=== PATIENT | female | born 1955 | race Caucasian/White ===

== ENCOUNTER 2017-07-12 20:09 | Inpatient (IN) | payer SELFPAY ==
[2017-07-12 20:57] LABS: PTT 27.4 SEC (22.9-36.1); Prothrombin Time 14.4 SEC (12.0-14.7)
--- NOTE | 2017-07-12 21:00 | RAD ---
CHEST ONE VIEW 07/12/17 HISTORY: Altered mental status. COMPARISON: Chest one view, 05/25/11. FINDINGS: The lungs are clear. No pneumothorax or effusion. The cardiac silhouette and mediastinal contours ar e normal. IMPRESSION: No acute intrathoracic abnormality. POS: [facility]
[2017-07-12 21:04] LABS: Band 9 % (5-11); Mean Platelet Volume 8.4 fL (7.4-10.4); Neutrophil 73 % (42-75); Red Blood Cell (RBC) Count 5.58 mill/uL (4.20-5.40); White Blood Cell (WBC) Count 23.4 thou/uL (4.8-10.8)
[2017-07-12 21:08] LABS: ALT (SGPT) 23 U/L (8-55); AST (SGOT) 41 U/L (5-34); Alkaline Phosphatase 100 U/L (40-150); Anion Gap 34 mmol/L (10-20); BUN (Urea Nitrogen) 38 mg/dL (9.8-20.1); Bilirubin, Total 1.4 mg/dL (0.2-1.2); CK (CPK) 108 U/L (29-168); Calc. Creatinine Clearance 0 mL/min (70-130); Calcium 9.3 mg/dL (7.8-10.44); Carbon Dioxide 12 mmol/L (23-31); Chloride 97 mmol/L (98-107); Estimated GFR-MDRD 19; Globulin 3.9 g/dL (2.4-3.5); Lipase 21 U/L (8-78); Protein, Total 7.9 g/dL (6.0-8.3); Troponin I 0.185 ng/mL (< 0.028)
[2017-07-12] MEDS ORDERED: Piperacillin/Tazobactam 4.5 GM VIAL ONE (21:46)
--- NOTE | 2017-07-12 21:57 | RAD ---
CHEST ONE VIEW 07/12/17 HISTORY: Central line placement. COMPARISON: Chest one view same day. FINDINGS: Central line has been placed with tip at the anterior SVC. No complication. There are extensive nodular annular calcifications. IMPRESSION: Interval placement of central venous catheter without complication. POS: [facility]
[2017-07-12] MEDS ORDERED: Piperacillin/Tazobactam 4.5 GM in Sodium Chloride 0.9% 100 ML IVPB SCH (22:00)
[2017-07-12] MEDS ORDERED: Norepinephrine 8 MG/0.9% NS 250 ML ONE (22:24)
[2017-07-12 22:37] LABS: Oxyhemoglobin 95.3 % (94.0-97.0); Sodium 138 mmol/L (135-148)
[2017-07-12] MEDS ORDERED: Aspirin 325 MG TAB ONE (22:37)
--- NOTE | 2017-07-12 22:43 | PDOC.EVN ---
Event Note - Event Note Event Note: [id number] H&P Dictated 1. Septic shock 2. Hypotenion 3. MARAH 4. Metabolic acidosis 5. Abdominal pain + Acute diarrhea plan: see orders
[2017-07-12 22:46] LABS: Mode Nasal Cannula; Modified Allen's Test POSITIVE; Vent NO
[2017-07-12 22:47] LABS: Bilirubin Large (Negative); Blood, Urine Negative (Negative); Glucose, Urine (Dipstick) 100 mg/dL (Negative); Ketone, Urine 15 mg/dL (Negative); Nitrite Positive (Negative); Protein, Urine (Dipstick) 100 mg/dL (Neg-Trace)
[2017-07-12] MEDS ORDERED: HYDROcodone/Acetaminophen 5/325 mg Tablet PO PRN (22:47)
[2017-07-12] MEDS ORDERED: Acetaminophen 325 MG TAB PO PRN (22:47)
[2017-07-12] MEDS ORDERED: Ondansetron HCl/PF 4 MG/2 ML Vial IVP PRN (22:47)
[2017-07-12 22:49] LABS: RBC/HPF 0-3 HPF (0-3); WBC/HPF 21-50 HPF (0-3)
[2017-07-12] MEDS ORDERED: Enoxaparin Sodium 100 MG/ML SYRINGE ONE ×2 (22:53→22:54)
[2017-07-12 22:59] LABS: Bacteria/HPF 3+ HPF (None Seen)
[2017-07-12 23:00] LABS: Hyaline Casts/LPF NONE SEEN LPF (0-3 Hyaline)
[2017-07-12] MEDS ORDERED: Norepinephrine 8 MG/0.9% NS 250 ML IVPB SCH (23:00)
[2017-07-12] MEDS ORDERED: Enoxaparin Sodium 60 MG/0.6 ML SYRINGE ONE (23:05)
--- NOTE | 2017-07-12 23:39 | CT ---
CT ABDOMEN AND PELVIS WITHOUT CONTRAST 07/12/17 HISTORY: Abdominal pain. COMPARISON: None. FINDINGS: The lung bases are clear. No pericardial effusion. Dense mitral annular calcifications. There is some low grade stranding around the pancreatic tail and left adrenal gland. Majority of the pancreatic parenchyma is atrophied. There is extensive arterial medial calcifications suggesting chronic medical renal disease. Seo catheter is in place. There is extensive surrounding soft tissue edema of the rectum with wall thickening. There is extensive submucosal edema and wall thickening of the sigmoid colon. There is small lymph n odes in the mesorectal fascia. There are small right periaortic lymph nodes. Skeleton is osteopenic. Chronic appearing inferior end plate deformity at L1. Severe degenerative di sc space disease at L5-S1. Kidneys are small. IMPRESSION: 1. Extensive rectal edema and submucosal thickening as well as moderate submucosal edema of the sigmoid colon suggests colitis and proctitis. Followup colonoscopy after treatment is recommended. The inflammatory stranding of the mesorectal fascia is greater at the sigmoid colon. Underlying infi ltrative tumor cannot be excluded. 2. Extensive arterial medial sclerosis suggests chronic medical renal disease. 3. Dense mitral annular calcifications. 4. Low grade inflammatory stranding around the pancreatic tail and left adrenal gland. Recommen d correlation with patient's pancreatic enzymes. POS: [facility]
[2017-07-12] MEDS ORDERED: Sodium Bicarbonate 150 MEQ in Dextrose 5% in Water 1,000 ML IV SCH ×2 (23:59)
[2017-07-13] MEDS ORDERED: metroNIDAZOLE 500 MG/100 ML BAG ONE (00:12)
[2017-07-13 00:30] LABS: Troponin I 1.081 ng/mL (< 0.028)
[2017-07-13 03:27] LABS: Band 22 % (5-11); Hematocrit 41.7 % (36.0-47.0); Mean Platelet Volume 8.5 fL (7.4-10.4); Neutrophil 74 % (42-75); Red Blood Cell (RBC) Count 4.65 mill/uL (4.20-5.40); White Blood Cell (WBC) Count 21.3 thou/uL (4.8-10.8)
[2017-07-13 03:35] LABS: Anion Gap 18 mmol/L (10-20); BUN (Urea Nitrogen) 41 mg/dL (9.8-20.1); Calc. Creatinine Clearance 68 mL/min (70-130); Calcium 8.4 mg/dL (7.8-10.44); Carbon Dioxide 23 mmol/L (23-31); Chloride 99 mmol/L (98-107); Estimated GFR-MDRD 22
[2017-07-13 03:48] LABS: Troponin I 3.458 ng/mL (< 0.028)
[2017-07-13] MEDS: Piperacillin/Tazobactam 2.25 GM in Sodium Chloride 0.9% 100 ML IVPB SCH ×3 (06:35→21:38)
--- NOTE | 2017-07-13 07:17 | HP ---
DATE OF ADMISSION: 07/12/2017 CHIEF COMPLAINT: Diarrhea, hypotension. HISTORY OF PRESENT ILLNESS: The patient is a 62-year-old female with past medical history of hypert ension, diabetes type 2, obesity, hyperlipidemia, irritable bowel syndrome, came to the ER complaini ng of diarrhea. The patient said she was driving, she was coming back from [place] and all of a sudd en she started feeling generalized weakness and profuse sweating according to the and while in the car, the patient started having loose bowel movements. The patient was taken into the house. In the house, the patient had up to 5-6 loose bowel movements; however, the patient was extremely fatigued, so when the patient's blood pressure at home was checked, it was 89/49, so the patient was brought to the ER. According to the , the patient was very fatigued, and the patient was ab out to fall while trying to coming to the ER. Denies any fever, denies any chills, denies any cough , denies sputum production, complaints of lower abdominal pain. The pain is all over the lower abdo men, constant, mild in intensity, cramping kind of pain. Denies any dysuria. Denies any nausea. D enies any vomiting. Complains of chronic bilateral lower extremity swelling also. PAST MEDICAL HISTORY: As per HPI. PAST SURGICAL HISTORY: Right shoulder surgery. SOCIAL HISTORY: Denies smoking, denies alcohol, denies any drugs. FAMILY HISTORY: Positive for heart problems. MEDICATIONS: Reviewed. ALLERGIES: No known drug allergies. REVIEW OF SYSTEMS: Constitutional: Positive for fatigue. Eyes: Denies any vision problems. Ears: Denies any hearin g loss. Neck: Denies any neck pain. Cardiovascular System: Denies any chest pain, denies any pal pations. Respiratory System: Denies any cough. Denies any sputum production. Gastrointestinal Sy stem: Positive for lower abdominal pain. Positive for diarrhea. Genitourinary: Denies dysuria. Musculoskeletal: Denies any joint deformities. Positive for bilateral lower extremity swelling. I ntegumentary: Positive for chronic skin changes. Psychiatric: Denies any depression or anxiety. All other review of systems are reviewed and are negative. PHYSICAL EXAMINATION: CONSTITUTIONAL/VITAL SIGNS: At the time of H\T\P performed, blood pressure is 110/61, pulse ox 97%, heart rate 90. GENERAL: The patient appears tired. HEENT: Anterior nares patent. Teeth intact. Tongue is moist. NECK: Supple. No JVD. CARDIOVASCULAR SYSTEM: S1, S2 present. Regular rate and rhythm. No murmurs, no rubs, no gallops. RESPIRATORY SYSTEM: No wheezing, no rhonchi. Breath sounds present bilaterally. GASTROINTESTINAL: Abdomen is soft, nontender, no guarding, no organomegaly, no masses felt. MUSCULOSKELETAL: Chronic lymphedema. PSYCHIATRIC: Mood is appropriate at this time. INTEGUMENT: Chronic skin changes. LABORATORY DATA: At the time of H\T\P performed, white count 23.4, hemoglobin 15.5, platelet count 384. PT 14.4, INR 1.1. D-dimer 3.46. BMP showed sodium of 138, potassium 4.7, chloride 97, CO2 of 12, BUN 38, creatinine 2.54, lactic acid 9, calcium 9.4, AST 41, ALT 23. CK-MB 9.3, troponin is 0. 185. Lipase 21. ASSESSMENT AND PLAN: The patient is a 62-year-old female. 1. Sepsis secondary to hypovolemia probably; will need to rule out other etiology also. Plan to do blood cultures. Plan to send the stool for culture and sensitivity. Plan to check stool for Clost ridium difficile. Plan to start broad-spectrum antibiotics. 2. Hypotension, septic shock. Monitor blood pressure. Continue vasopressors. Plan to consult ICU team, Critical Care Team to evaluate the patient and monitor the patient closely. 3. Acute kidney injury plus chronic kidney disease stage 3-4 plus severe metabolic acidosis, lactic acidosis. Plan to start the patient on bicarbonate drip. Plan to consult Nephrology to evaluate t he patient, monitor creatinine closely. Repeat BMP in a.m. Monitor serial lytes, serial lactate le vels. 4. Abnormal cardiac enzymes. Plan to check Cardiology to evaluate the patient. Plan to check 2D e cho. The patient did receive a dose of Lovenox in the ER. We will monitor the patient closely. We will check bilateral lower extremities ultrasound to rule out deep vein thrombosis as the patient h as elevated D-dimer. 5. History of diabetes type 2. Monitor blood sugars. We will do insulin sliding scale. 6. Hyperlipidemia. Continue home medications. The case was discussed in detail with the patient. The patient is FULL CODE.
[2017-07-13] MEDS ORDERED: HumaLOG 300 UNITS/3 ML VIAL SC PRN (07:59)
[2017-07-13] MEDS ORDERED: Dextrose 50% Abboject 50 ML SYRINGE SLOW IVP PRN (07:59)
[2017-07-13] MEDS ORDERED: Dextrose 5% in Water 1,000 ML IV PRN (07:59)
--- NOTE | 2017-07-13 08:03 | PDOC.PN ---
- Subjective Encounter Start Date: 07/13/17 Encounter Start Time: 08:02 Ms. Foote is feeling better. She notes some mild abdominal discomfort on the right side, otherwise ok. She denies chest pain, she says she has some dyspnea, but is " short of breath all the time". It is not different from her baseline. - Objective MAR Reviewed: Yes Vital Signs & Weight: Vital Signs (12 hours) Temp Pulse Resp Pulse Ox 07/13/17 07:49 97.9 F 92 21 H 98 07/13/17 07:00 97.9 F 07/13/17 04:00 99.7 F H 07/13/17 00:20 97.9 F 95 20 99 Weight Weight 368 lb 13.334 oz Most Recent Monitor Data Heart Rate from ECG 88 NIBP 146/58 NIBP BP-Mean 81 Respiration from ECG 18 SpO2 99 I&O: 07/12/17 07/13/17 07/14/17 07:59 06:59 06:59 Intake Total 400 Output Total 40 Balance 360 Result Diagrams: 07/13/17 02:55 07/13/17 02:55 Phys Exam - Physical Examination HEENT: PERRLA Respiratory: no wheezing, no rales, no rhonchi, clear to auscultation bilateral Cardiovascular: RRR, no significant murmur Gastrointestinal: soft, positive bowel sounds + mild diffuse tenserness Musculoskeletal: edema present + chronic venous stasis changes on the lower extremities Dx/Plan (1) Septic shock Code(s): A41.9 - SEPSIS, UNSPECIFIED ORGANISM; R65.21 - SEVERE SEPSIS WITH SEPTIC SHOCK Status: Acute (2) Colitis presumed infectious Code(s): A09 - INFECTIOUS GASTROENTERITIS AND COLITIS, UNSPECIFIED Status: Acute (3) Non-ST elevation myocardial infarction (NSTEMI), type 2 Code(s): I21.A1 - MYOCARDIAL INFARCTION TYPE 2 Status: Acute (4) Diabetes mellitus type 2 in obese Code(s): E11.69 - TYPE 2 DIABETES MELLITUS WITH OTHER SPECIFIED COMPLICATION; E66.9 - OBESITY, UNSPECIFIED Status: Acute (5) Acute worsening of stage 3 chronic kidney disease Code(s): N18.3 - CHRONIC KIDNEY DISEASE, STAGE 3 (MODERATE) Status: Acute (6) Morbid obesity with BMI of 50.0-59.9, adult Code(s): E66.01 - MORBID (SEVERE) OBESITY DUE TO EXCESS CALORIES; Z68.43 - BODY MASS INDEX (BMI) 50-59.9 , ADULT Status: Acute - Plan * Septic shock, with acute renal failure, and hypovolemic shock- she is much improved this morning * Her blood pressure is recovering on Levophed * Continue broad spectrum antibiotics including Zosyn, Flagyl, and Vancomycin * Elevated troponins- suspect NSTEMI type 2- will need Cardiology input however , and Echo is pending * DM- will add a SSI, and re-start insulin, scheduled, once she is tolerating p.o. * Chronic venous stasis ulcers- consult wound care .
[2017-07-13] MEDS: metroNIDAZOLE 500 MG in Premix Bag 1 BAG IVPB SCH ×2 (08:27→15:42)
[2017-07-13] MEDS: Famotidine 20 MG TAB PO SCH ×2 (08:38→20:35)
[2017-07-13] MEDS: HumaLOG 300 UNITS/3 ML VIAL SC PRN ×2 (08:38→11:07)
[2017-07-13] MEDS: Heparin 5,000 UNITS/ML VIAL SC SCH ×3 (08:38→20:35)
[2017-07-13] MEDS: Sodium Chloride 0.9% 1,000 ML IV SCH ×2 (08:38→15:41)
--- NOTE | 2017-07-13 08:39 | CON ---
DATE OF CONSULTATION: 07/13/2017 CONSULTING PHYSICIAN: Dr. Hutton. REASON FOR CONSULTATION: Hypotension. HISTORY OF PRESENT ILLNESS: This is a 62-year-old female who presented to the emergency room yester day with intractable diarrhea that had been preceded by a long spell of constipation. She was noted to be hypotensive. She was aggressively fluid resuscitated. It was initially thought she was bernardo g to have to be on vasopressors, but she did not end up requiring that. She did have lactic acidosi s at the time of admission. PAST MEDICAL HISTORY: 1. Morbid obesity. 2. Hypertension. 3. Diabetes mellitus type 2. 4. Hyperlipidemia. 5. Irritable bowel syndrome. PAST SURGICAL HISTORY: 1. Right shoulder surgery. 2. She also had knee surgery in the past. SOCIAL HISTORY: Nonsmoker, does not consume alcohol, does not use illicit drugs. FAMILY MEDICAL HISTORY: Remarkable for cardiac problems. MEDICATIONS: Insulin 70/30 40 units subcutaneously twice daily, Apresoline 50 mg b.i.d., clonidine 0.2 mg b.i.d., lovastatin 40 mg daily, Zestril 40 mg daily, amlodipine 10 mg daily. REVIEW OF SYSTEMS: Remarkable for constipation and diarrhea. PHYSICAL EXAMINATION: VITAL SIGNS: Temperature 97.9, pulse 92, respirations 21, O2 sat 98% on 3 liters, blood pressure 14 6/58. GENERAL: She is awake and alert and in no distress. HEENT: Unremarkable. NECK: Without adenopathy or JVD. LUNGS: Clear to auscultation. CARDIAC: S1, S2 regular. ABDOMEN: Morbidly obese, soft, nontender to deep palpation. EXTREMITIES: Brawny edema throughout with significant stasis changes over her lower extremities. LABORATORY DATA: Sodium 136, potassium 4.1, chloride 99, CO2 of 23, BUN 41, creatinine 2.3, glucose 313. Troponin 3.4. White blood cell count 21.3, hemoglobin 13, hematocrit 42, platelet count 315. Urinalysis demonstrated 21-50 white blood cells. Cultures showed no growth to date. X-RAY FINDINGS: Chest x-ray showed no mass, effusion or infiltrate. ASSESSMENT: 1. Hypovolemic shock secondary to proctitis and colitis demonstrated on CT scan. 2. Urinary tract infection. 3. Morbid obesity. 4. Diabetes mellitus type 2. PLAN: 1. I would go ahead and stop the bicarbonate drip. 2. Continue antibiotics. 3. Consider GI consultation if diarrhea continues. 4. Await results of diarrhea workup.
[2017-07-13] MEDS: Vancomycin HCl 1.75 GM in Sodium Chloride 0.9% 500 ML IVPB SCH (11:07)
[2017-07-13] MEDS ORDERED: Enoxaparin Sodium 100 MG/ML SYRINGE SC SCH (15:30)
[2017-07-13] MEDS ORDERED: Clopidogrel Bisulfate 300 MG TAB PO SCH (15:30)
[2017-07-13] MEDS ORDERED: Atorvastatin Calcium 40 MG TAB PO SCH (15:30)
[2017-07-13] MEDS ORDERED: Metoprolol Tartrate 25 MG TAB PO SCH (15:30)
[2017-07-13] MEDS: Metoprolol Tartrate 25 MG TAB PO SCH (20:35)
--- NOTE | 2017-07-13 20:35 | CON ---
DATE OF CONSULTATION: 07/13/2017 HISTORY OF PRESENT ILLNESS: The patient is a 62-year-old woman who presents for evaluation of weakness and back discomfort. The patient has no previous cardiac history. She has a history of hypertension and diabetes mellitus. The patient was in her usual state of health when she developed diarrhea and became markedly weak. She became hypotensive and presented to the emergency room. The patient denied having any chest discomfort. PAST MEDICAL HISTORY: 1. Hypertension. 2. Diabetes mellitus. 3. Morbid obesity. 4. Hyperlipidemia. PAST SURGICAL HISTORY: Shoulder surgery, knee surgery, colostomy tube, appendectomy, and tubal ligation. MEDICATIONS ON ADMISSION: Lovastatin 40 daily, Zestril 40 daily, Norvasc 10 daily, Apresoline 50 t.i.d., and clonidine 0.2 b.i.d. SOCIAL HISTORY: Nonsmoker. REVIEW OF SYSTEMS: A ten-point system noticeable for constipation and diarrhea. PHYSICAL EXAMINATION: GENERAL: This is an obese woman in mild distress. VITAL SIGNS: Blood pressure 149/62. NECK: Full. LUNGS: Clear to auscultation. HEART: Regular rate and rhythm. Normal S1, S2 with 2/6 systolic murmur. ABDOMEN: Distended. EXTREMITIES: Showed moderate bilateral edema. NEUROLOGIC: Nonfocal. VASCULAR: Radial pulses are 2+. LABORATORY DATA: Sodium 136, potassium 4.1, bicarbonate 99, BUN 41, creatinine 2.3, glucose 330. Troponin was 3.4 with an MB of 36. White blood cell count is 21.3, hemoglobin 13.5, hematocrit 41.7, and her platelets are 315. INR is 1.1. Her EKG revealed sinus tachycardia with an ST-T wave abnormality suggestive of ischemia. IMPRESSION: 1. Non-Q-wave myocardial infarction. 2. Hypotension. 3. Gastroenteritis. 4. Sepsis. 5. Renal insufficiency. 6. Diabetes mellitus. 7. Morbid obesity. This patient presents with sepsis and hypotension. From a cardiac standpoint, she has suffered a non-Q-wave myocardial infarction, probably secondary to the demand ischemia. Blood pressure is now stable. We will start the patient on a beta-yaneth therapy. We will add aspirin and Plavix. We will restart lipid- lowering medication. We will check the patient's echocardiogram. We will follow this patient with you through her hospitalization. Critical care time was 60 minutes. [facility]
[2017-07-14] MEDS: Sodium Chloride 0.9% 1,000 ML IV SCH ×2 (01:30→10:25)
[2017-07-14] MEDS: metroNIDAZOLE 500 MG in Premix Bag 1 BAG IVPB SCH ×3 (01:30→16:23)
[2017-07-14 04:51] LABS: #Lymphocytes 1.2 thou/uL (1.20-3.40); #Monocytes 0.7 thou/uL (0.11-0.59); #Neutrophils 11.2 thou/uL (1.40-6.50); %Eosinophils 0.4 % (0.0-10.0); %Lymphocytes 9.4 % (21.0-51.0); %Monocytes 5.3 % (0.0-10.0); Hematocrit 37.5 % (36.0-47.0); Mean Platelet Volume 8.5 fL (7.4-10.4); Red Blood Cell (RBC) Count 4.18 mill/uL (4.20-5.40); White Blood Cell (WBC) Count 13.2 thou/uL (4.8-10.8)
[2017-07-14 05:05] LABS: Anion Gap 15 mmol/L (10-20); BUN (Urea Nitrogen) 32 mg/dL (9.8-20.1); Calc. Creatinine Clearance 87 mL/min (70-130); Calcium 7.8 mg/dL (7.8-10.44); Carbon Dioxide 23 mmol/L (23-31); Chloride 103 mmol/L (98-107); Estimated GFR-MDRD 29
[2017-07-14] MEDS: Piperacillin/Tazobactam 2.25 GM in Sodium Chloride 0.9% 100 ML IVPB SCH ×2 (06:47→13:13)
[2017-07-14] MEDS: HumaLOG 300 UNITS/3 ML VIAL SC PRN ×3 (06:48→18:00)
[2017-07-14] MEDS: Clopidogrel Bisulfate 75 MG TAB PO SCH (08:26)
[2017-07-14] MEDS: Famotidine 20 MG TAB PO SCH ×2 (08:27→20:28)
[2017-07-14] MEDS: Metoprolol Tartrate 25 MG TAB PO SCH ×3 (08:28→20:28)
--- NOTE | 2017-07-14 08:37 | PRG ---
DATE OF SERVICE: 07/14/2017 SUBJECTIVE: The patient is doing a little better. She is still having some diarrhea. OBJECTIVE: VITAL SIGNS: On exam, temperature is 99.5, pulse 82, blood pressure 176/64, 24-hour intake 4957 and output 1745. HEENT: Unremarkable. NECK: No JVD. LUNGS: Clear. CARDIAC: S1 and S2 regular. ABDOMEN: Soft, obese, nontender, nondistended. EXTREMITIES: Brawny edema throughout. LABORATORY DATA: White blood cell count 13.2, hematocrit 37.5, platelet count 275. Sodium 137, pot assium 3.7, chloride 103, CO2 of 23, BUN 32, creatinine 1.7, glucose 169. Parathyroid hormone level was 489. ASSESSMENT: 1. Proctitis. 2. Hypovolemic shock secondary to diarrhea. 3. Urinary tract infections. 4. Diabetes mellitus, type 2. PLAN: 1. She can transfer out to the telemetry unit. 2. Continue hydration. 3. Continue care for non-Q-wave CA.
[2017-07-14] MEDS ORDERED: Enoxaparin Sodium 100 MG/ML SYRINGE SC SCH ×2 (09:00→10:14)
[2017-07-14] MEDS ORDERED: FLU VACC QS2017-18 36 mo. & older 0.5 ML SYRINGE IM ONE (09:00)
[2017-07-14] MEDS: Heparin 5,000 UNITS/ML VIAL SC SCH (10:25)
--- NOTE | 2017-07-14 10:50 | PDOC.PN ---
- Subjective Encounter Start Date: 07/14/17 Encounter Start Time: 10:50 Subjective: Patient feeling much better. Diarrhea almost stopped. Minimal suprapubic -: cramping pain. - Objective MAR Reviewed: Yes Vital Signs & Weight: Vital Signs (12 hours) Temp 07/14/17 08:00 98.7 F 07/14/17 04:00 99.5 F 07/14/17 00:00 98.8 F Weight Weight 368 lb 13.334 oz Most Recent Monitor Data Heart Rate from ECG 74 NIBP 156/57 NIBP BP-Mean 82 Respiration from ECG 22 SpO2 96 I&O: 07/13/17 07/14/17 07/15/17 06:59 06:59 06:59 Intake Total 4957 200 Output Total 1745 525 Balance 3212 -325 Result Diagrams: 07/14/17 04:25 07/14/17 04:25 Additional Labs: Accuchecks 07/13/17 07/13/17 07/13/17 20:43 15:37 11:07 POC Glucose 158 H 143 H 253 H Phys Exam - Physical Examination Constitutional: NAD morbidly obese HEENT: moist MMs Respiratory: no wheezing, no rales, no rhonchi, clear to auscultation bilateral Cardiovascular: RRR, no significant murmur Gastrointestinal: soft, non-tender, positive bowel sounds Musculoskeletal: pulses present, edema present chronic venous stasis dermatitis to bilateral shins Neurological: non-focal, moves all 4 limbs Psychiatric: normal affect, A&O x 3 Dx/Plan (1) Colitis presumed infectious Code(s): A09 - INFECTIOUS GASTROENTERITIS AND COLITIS, UNSPECIFIED Status: Acute (2) Septic shock Code(s): A41.9 - SEPSIS, UNSPECIFIED ORGANISM; R65.21 - SEVERE SEPSIS WITH SEPTIC SHOCK Status: Resolved Plan: Resolved, ok to transfer to the floor per pulmonology (3) Acute worsening of stage 3 chronic kidney disease Code(s): N18.3 - CHRONIC KIDNEY DISEASE, STAGE 3 (MODERATE) Status: Acute Plan: Creatinine appears resolved to baseline (4) Diabetes mellitus type 2 in obese Code(s): E11.69 - TYPE 2 DIABETES MELLITUS WITH OTHER SPECIFIED COMPLICATION; E66.9 - OBESITY, UNSPECIFIED Status: Chronic (5) Morbid obesity with BMI of 50.0-59.9, adult Code(s): E66.01 - MORBID (SEVERE) OBESITY DUE TO EXCESS CALORIES; Z68.43 - BODY MASS INDEX (BMI) 50-59.9 , ADULT Status: Chronic (6) Non-ST elevation myocardial infarction (NSTEMI), type 2 Code(s): I21.A1 - MYOCARDIAL INFARCTION TYPE 2 Status: Acute Plan: Cardiology following. Starting betablocker. - Plan cont current plan of care, continue antibiotics stable for transfer to floor -: likely change to oral abx tomorrow * .
[2017-07-14] MEDS: Sodium Chloride 0.45% 1,000 ML IV SCH (11:42)
[2017-07-14] MEDS: Vancomycin HCl 1.75 GM in Sodium Chloride 0.9% 500 ML IVPB SCH (11:48)
[2017-07-14] MEDS: Piperacillin/Tazobactam 3.375 GM, Admixture Fee 1 EACH in Sodium Chloride 0.9% 100 ML IVPB SCH ×2 (13:23→20:27)
[2017-07-14] MEDS ORDERED: cloNIDine 0.1 MG TAB PO PRN (15:46)
[2017-07-14] MEDS ORDERED: Amlodipine 10 MG TAB PO SCH (16:00)
[2017-07-14] MEDS: hydrALAZINE 25 MG TAB PO SCH (16:23)
[2017-07-14] MEDS: hydrALAZINE 20 MG/ML VIAL SLOW IVP PRN (17:59)
[2017-07-14] MEDS: Atorvastatin Calcium 10 MG TAB PO SCH (20:27)
[2017-07-14] MEDS: cloNIDine 0.2 MG TAB PO SCH (20:27)
[2017-07-14] MEDS ORDERED: Atorvastatin Calcium 40 MG TAB PO SCH (21:00)
--- NOTE | 2017-07-14 22:42 | CON ---
DATE OF CONSULTATION: 07/13/2017 CONSULTING PHYSICIAN: Franklin Hutton MD REASON FOR CONSULTATION: Acute kidney injury. REASON FOR ADMISSION: Diarrhea and hypertension. HISTORY OF PRESENT ILLNESS: A 62-year-old female with a history of hypertension, type 2 diabetes, o besity, hyperlipidemia, who came to the hospital with diarrhea and was found to have elevated creati nine. Nephrology is consulted. The patient is feeling a little better with hydration. No fever or chills. No nausea, vomiting, no abdominal pain reported. PAST MEDICAL HISTORY: Positive for type 2 diabetes, hypertension, hyperlipidemia, irritable bowel s yndrome, obesity. PAST SURGICAL HISTORY: Right shoulder surgery. HOME MEDICATIONS: Include lovastatin, Zestril, Norvasc, hydralazine, clonidine, and NPH. ALLERGIES: No known drug allergies. SOCIAL HISTORY: No smoking, alcohol, or illicit drug abuse. FAMILY HISTORY: No history of any kidney disease. REVIEW OF SYSTEMS: The following complete review of systems was negative, unless otherwise mentioned in the HPI or below: Constitutional: Weight loss or gain, ability to conduct usual activities. Skin: Rash, itching. Eyes: Double vision, pain. ENT/Mouth: Nose bleeding, neck stiffness, pain, tenderness. Cardiovascular: Palpitations, dyspnea on exertion, orthopnea. Respiratory: Shortness of breath, wheezing, cough, hemoptysis, fever, or night sweats. Gastrointestinal: Poor appetite, abdominal pain, heartburn, nausea, vomiting, constipation, or diar sarwat. Genitourinary: Urgency, frequency, dysuria, nocturia. Musculoskeletal: Pain, swelling. Neurologic/Psychiatric: Anxiety, depression. Allergy/Immunologic: Skin rash, bleeding tendency. PHYSICAL EXAMINATION: GENERAL: This is an elderly female in no apparent distress. VITAL SIGNS: Temperature 98.2, pulse 90, respiratory rate 22, blood pressure 126/53. HEENT: Atraumatic, normocephalic. Oral mucosa is moist. NECK: Supple, no masses. CARDIOVASCULAR: S1, S2 heard. Rate and rhythm regular. RESPIRATORY: Clear. ABDOMEN: Soft. MUSCULOSKELETAL: No tenderness. DERMATOLOGIC: No skin rash. NEUROLOGIC: Alert, awake. PSYCHIATRIC: Mood and affect normal. LABORATORY DATA: Potassium is 4.1, BUN is 41, creatinine is 2.3. ASSESSMENT AND PLAN: 1. Acute kidney injury most likely from sepsis and volume depletion. Agree with hydration, creatin ine is already getting better. The patient is feeling better. 2. Hypertension. Titrate medications. 3. Edema, controlled. 4. Proteinuria. 5. Anemia, mild. 6. Leukocytosis. 7. Sepsis. 8. Morbid obesity. 9. Check chronic kidney disease labs and continue hydration. Avoid nephrotoxins. Continue support lizet care with antibiotics and we will follow. Thank you for the consult.
[2017-07-14] MEDS: Insulin NPH/Reg Insulin Hm 300 UNITS/3 ML VIAL SC SCH (22:59)
--- NOTE | 2017-07-14 23:55 | PRG ---
DATE OF SERVICE: 07/14/2017 SUBJECTIVE: Patient was seen and examined at bedside and overnight events noted. Patient denies an y shortness of breath or chest pain or palpitation. No history of nausea or vomiting or diarrhea or fever or chills or cramps. OBJECTIVE: GENERAL: This is a well-built female in no apparent distress. VITAL SIGNS: Temperature 98.2, pulse 87, respiratory 22, blood pressure 156/57. HEENT: Atraumatic, normocephalic. Oral mucosa is moist. NECK: Supple. CARDIOVASCULAR: S1, S2 heard. Rate and rhythm regular. RESPIRATORY: Clear to auscultation. GASTROINTESTINAL: Abdomen is soft. MUSCULOSKELETAL: No tenderness, no edema. DERMATOLOGIC: No skin rash. NEUROLOGIC: Alert and awake and oriented x3. No focal neurologic deficits. Moving all the extremi ties. PSYCHIATRIC: Mood and affect normal. LABORATORY DATA: Potassium is 3.7, BUN is 32, and creatinine 1.7. ASSESSMENT AND PLAN: 1. Acute kidney injury on chronic kidney disease, stage 3. 2. with hydration. 3. Obesity. 4. Hypertension. 5. Proteinuria. Overall, renal function is better. Avoid nephrotoxins. We will follow.
[2017-07-15] MEDS: metroNIDAZOLE 500 MG in Premix Bag 1 BAG IVPB SCH ×2 (00:15→08:20)
[2017-07-15] MEDS: Sodium Chloride 0.45% 1,000 ML IV SCH ×2 (05:43→12:50)
[2017-07-15] MEDS ORDERED: Piperacillin/Tazobactam 3.375 GM, Admixture Fee 1 EACH in Sodium Chloride 0.9% 100 ML IVPB SCH (06:00)
[2017-07-15] MEDS: Piperacillin/Tazobactam 3.375 GM, Admixture Fee 1 EACH in Sodium Chloride 0.9% 100 ML IVPB SCH (06:38)
[2017-07-15 06:51] LABS: Anion Gap 9 mmol/L (10-20); BUN (Urea Nitrogen) 23 mg/dL (9.8-20.1); Calc. Creatinine Clearance 118 mL/min (70-130); Calcium 8.6 mg/dL (7.8-10.44); Carbon Dioxide 26 mmol/L (23-31); Chloride 105 mmol/L (98-107); Estimated GFR-MDRD 40
[2017-07-15] MEDS: hydrALAZINE 25 MG TAB PO SCH ×2 (08:24→15:53)
[2017-07-15] MEDS: Amlodipine 10 MG TAB PO SCH (08:35)
[2017-07-15] MEDS: Aspirin 81 mg Enteric Coated Tablet PO SCH (08:35)
[2017-07-15] MEDS: Famotidine 20 MG TAB PO SCH ×2 (08:35→20:25)
[2017-07-15] MEDS: Lisinopril 20 MG TAB PO SCH (08:36)
[2017-07-15] MEDS: Clopidogrel Bisulfate 75 MG TAB PO SCH (08:36)
[2017-07-15] MEDS: Enoxaparin Sodium 40 MG/0.4 ML SYRINGE SC SCH (08:36)
[2017-07-15] MEDS: Metoprolol Tartrate 25 MG TAB PO SCH (08:37)
[2017-07-15] MEDS: cloNIDine 0.2 MG TAB PO SCH ×2 (08:38→20:25)
[2017-07-15] MEDS: Insulin NPH/Reg Insulin Hm 300 UNITS/3 ML VIAL SC SCH ×2 (08:39→21:19)
--- NOTE | 2017-07-15 08:47 | PRG ---
DATE OF SERVICE: 07/15/2017 The patient is doing reasonably well. She is still having a little diarrhea. PHYSICAL EXAMINATION: VITAL SIGNS: Temperature 98.5, pulse 65, respirations 16, O2 sat 92%, blood pressure 136/66. HEENT: Unremarkable. NECK: No JVD. LUNGS: Clear. CARDIAC: S1, S2 regular. ABDOMEN: Soft, obese, nontender. EXTREMITIES: Brawny edema. LABORATORY DATA: Sodium 136, potassium 3.8, chloride 105, CO2 26, BUN 23, creatinine 1.4, glucose 7 5. ASSESSMENT: 1. Proctitis. 2. Hypovolemic shock secondary to diarrhea, now resolved. 3. Urinary tract infections. 4. Diabetes mellitus type 2. PLAN: 1. In all likelihood, the IV vancomycin can be stopped since cultures are negative. 2. She should be close to discharge. 3. No active pulmonary issues. I will sign off. Please recall if further assistance needed.
--- NOTE | 2017-07-15 09:56 | PRG ---
Patient Name: DELANEY CURIEL Date of service: 07/15/2017 Subjective: Patient was seen and examined at bedside and overnight events noted. Patient denies any shortness of breath or chest pain or palpitation. No history of nausea or vomiting or diarrhea or fever or chills or cramps. Objective: General: This is a well-built female in no acute distress Vital signs: Temperature 95.7, pulse 70, respiratory rate 18, blood pressure 130/76. HEENT: Atraumatic, normocephalic. Oral mucosa is moist. Neck: Supple. Cardiovascular: S1 S2 heard. Rate and rhythm regular. Respiratory: Clear to auscultation. Gastrointestinal: Abdomen is soft. Musculoskeletal: No tenderness. No edema. Dermatologic: No skin rash. Neurologic: Alert and awake and oriented X3. No focal neurologic deficits. Moving all the extremi ties. Psychiatric: Mood and affect normal. LABORATORY DATA: Potassium is 3.8, BUN 23, creatinine 1.3. ASSESSMENT AND PLAN: 1. Acute kidney injury on chronic kidney disease stage 3. Continue hydration, tolerating well. 2. Obesity. 3. Hypertension, stable. 4. Proteinuria, mild. 5. Renal function is much better with hydration. Continue hydration as tolerated. Continue suppor tive care. Avoid nephrotoxins.
--- NOTE | 2017-07-15 09:58 | PDOC.PN ---
- Subjective Encounter Start Date: 07/15/17 Encounter Start Time: 10:00 Subjective: Feeling better. Very weak when trying to get up yesterday. Rolling -: walker present in room now. - Objective MAR Reviewed: Yes Vital Signs & Weight: Vital Signs (12 hours) Temp Pulse Resp BP Pulse Ox 07/15/17 08:27 98.5 F 71 20 151/66 H 92 L 07/15/17 04:00 98.5 F 65 18 136/66 92 L 07/15/17 00:00 98.8 F 75 18 147/68 H 92 L Weight Admit Weight 368 lb 13.334 oz Weight 379 lb 12.8 oz Most Recent Monitor Data Heart Rate from ECG 79 NIBP 178/88 NIBP BP-Mean 113 Respiration from ECG 19 SpO2 97 I&O: 07/14/17 07/15/17 07/16/17 06:59 06:59 06:59 Intake Total 4957 3289 Output Total 1745 2825 Balance 3212 464 Result Diagrams: 07/14/17 04:25 07/15/17 05:45 Additional Labs: Accuchecks 07/15/17 07/14/17 07/14/17 06:00 20:02 17:29 POC Glucose 75 167 H 170 H 07/14/17 11:32 POC Glucose 171 H Phys Exam - Physical Examination Constitutional: NAD HEENT: moist MMs Respiratory: no wheezing, no rales, no rhonchi Cardiovascular: RRR, no significant murmur Gastrointestinal: soft, positive bowel sounds mild TTP LLQ Musculoskeletal: pulses present Neurological: non-focal, moves all 4 limbs Psychiatric: normal affect, A&O x 3 Dx/Plan (1) Colitis presumed infectious Code(s): A09 - INFECTIOUS GASTROENTERITIS AND COLITIS, UNSPECIFIED Status: Acute Plan: improving, change to po Metronidazole and oral floroquinolone (2) Septic shock Code(s): A41.9 - SEPSIS, UNSPECIFIED ORGANISM; R65.21 - SEVERE SEPSIS WITH SEPTIC SHOCK Status: Resolved (3) Acute worsening of stage 3 chronic kidney disease Code(s): N18.3 - CHRONIC KIDNEY DISEASE, STAGE 3 (MODERATE) Status: Acute Plan: Improved markedly (4) Diabetes mellitus type 2 in obese Code(s): E11.69 - TYPE 2 DIABETES MELLITUS WITH OTHER SPECIFIED COMPLICATION; E66.9 - OBESITY, UNSPECIFIED Status: Chronic (5) Morbid obesity with BMI of 50.0-59.9, adult Code(s): E66.01 - MORBID (SEVERE) OBESITY DUE TO EXCESS CALORIES; Z68.43 - BODY MASS INDEX (BMI) 50-59.9 , ADULT Status: Chronic (6) Non-ST elevation myocardial infarction (NSTEMI), type 2 Code(s): I21.A1 - MYOCARDIAL INFARCTION TYPE 2 Status: Acute Plan: stress induced from HTN and sepsis, treating medically with Betablocker (7) Hypertensive emergency, no CHF Code(s): I16.1 - HYPERTENSIVE EMERGENCY Status: Acute Plan: resolved after reinstituting her home BP medications. - Plan cont current plan of care, continue antibiotics, PT/OT Home vs. SNF tomorrow depending on how she does with PT today. Patient -: is unfunded which will make it difficult if she is not safe to d/c home. * . - Discharge Day Encounter end time: 10:40
[2017-07-15] MEDS ORDERED: WARFARIN PO PRN (10:37)
[2017-07-15 12:25] LABS: Vancomycin, Trough 13.6 ug/mL
[2017-07-15] MEDS: metroNIDAZOLE 500 MG TAB PO SCH ×2 (15:50→20:25)
[2017-07-15] MEDS ORDERED: Warfarin Sodium 5 MG TAB PO SCH (17:00)
[2017-07-15] MEDS: Atorvastatin Calcium 10 MG TAB PO SCH (20:24)
[2017-07-15] MEDS: Ciprofloxacin 500 MG TAB PO SCH (20:24)
[2017-07-16] MEDS: Sodium Chloride 0.45% 1,000 ML IV SCH (03:18)
[2017-07-16] MEDS: Ciprofloxacin 500 MG TAB PO SCH ×2 (05:18→20:28)
[2017-07-16] MEDS: hydrALAZINE 25 MG TAB PO SCH ×2 (05:31→16:00)
[2017-07-16] MEDS: Amlodipine 10 MG TAB PO SCH (09:19)
[2017-07-16] MEDS: Aspirin 81 mg Enteric Coated Tablet PO SCH (09:19)
[2017-07-16] MEDS: cloNIDine 0.2 MG TAB PO SCH ×2 (09:19→20:28)
[2017-07-16] MEDS: metroNIDAZOLE 500 MG TAB PO SCH ×3 (09:20→20:28)
[2017-07-16] MEDS: Famotidine 20 MG TAB PO SCH ×2 (09:20→20:28)
[2017-07-16] MEDS: Clopidogrel Bisulfate 75 MG TAB PO SCH (09:20)
[2017-07-16] MEDS: Lisinopril 20 MG TAB PO SCH (09:20)
[2017-07-16] MEDS: Enoxaparin Sodium 40 MG/0.4 ML SYRINGE SC SCH (09:20)
[2017-07-16] MEDS: Insulin NPH/Reg Insulin Hm 300 UNITS/3 ML VIAL SC SCH ×2 (09:21→20:30)
[2017-07-16] MEDS: NIFEdipine XL 60 MG TAB PO SCH (12:03)
--- NOTE | 2017-07-16 13:33 | PRG ---
DATE OF SERVICE: 07/16/2017 SUBJECTIVE: The patient was seen and examined at the bedside. She is still very weak, not able to walk. She stays in bed. She did some physical therapy yesterday, but she is not able to walk yet. She does not have any chest pain. She does not have any shortness of breath. OBJECTIVE: VITAL SIGNS: Blood pressure is 178/74, pulse is 63, temperature is 97.9, respiratory rate is 18, O2 saturation is 95% on room air. She is very obese. Her weight is 377 pounds. HEENT: Head is atraumatic, normocephalic. Eyes: PERRLA. Sclerae nonicteric. Conjunctivae pinkish . Oral mucosa is moist. NECK: Supple, obese. LUNGS: Few crackles at the left base. No wheezing, no rales. CARDIOVASCULAR: S1, S2 distant, no S3, no S4. ABDOMEN: Very obese. Bowel sounds are present. No organomegaly. EXTREMITIES: 1+ peripheral edema seen bilaterally. NEUROLOGIC: She is alert and oriented x4. There is not any motor or sensory deficit. Cranial nerv es are intact. LABORATORY DATA: Showed on glycemia ranging from 110 to 140. No other lab work today. Microbiolog y as before, negative blood cultures, negative Shiga toxin on stool, negative Campylobacter, negativ e C. difficile antigen and toxin, negative occult blood on stool and negative rapid parasite screen . IMPRESSION: 1. Colitis, most likely infectious, although the lab work is negative. The patient is on oral metr onidazole and levofloxacin. She still has some watery diarrhea, but that is residual. 2. Sepsis with negative blood cultures, resolved. 3. Acute stage 3 worsening chronic kidney disease, improved with IV fluids. 4. Diabetes mellitus type 2, controlled. 5. Morbid obesity with BMI at 52. 6. Chronic constipation secondary to dehydration and medications. Will try to limit medications wh ich cause constipation which is probably clonidine and I talked to Dr. Garcia about possible alonzo es. It is going to be a challenge since her blood pressure is still not controlled even on her ab men currently. 7. Non-ST elevation myocardial infarction. She is on clopidogrel. She is on Lipitor 40 mg, it was switched from lovastatin. She is on hydralazine, lisinopril, metoprolol, and nifedipine. 8. Profound deconditioning. The patient is not able to even take a few steps. She would need skil led nursing unit or rehabilitation transfer. 9. Hypertensive emergency. Still an issue. Her calcium channel yaneth was switched from amlodipi ne to nifedipine by ceramic design engineer today. We will continue her hydralazine. For now we will continue clonidine and metoprolol was increased to 100 mg twice a day. PLAN: Continue her physical therapy. Cardiology is planning to do cardiac evaluation. We will con tinue her oral metronidazole and levofloxacin. Apparently the patient is unfunded and it will be a challenge since I do think her is able to take care of her at home and on the other side, si nce she is unfunded, she will not be accepted by a rehabilitation center.
--- NOTE | 2017-07-16 19:28 | PRG ---
DATE OF SERVICE: 07/16/2017 SUBJECTIVE: Patient was seen and examined at bedside and overnight events noted. Patient denies an y shortness of breath or chest pain or palpitation. No history of nausea or vomiting or diarrhea or fever or chills or cramps. OBJECTIVE: GENERAL: This is a well-built male in apparent distress. VITAL SIGNS: Temperature 98.1, pulse 60, respiratory rate 18 and blood pressure 156/72. HEENT: Atraumatic and normocephalic. Oral mucosa is moist. NECK: Supple. CARDIOVASCULAR: S1 and S2 heard. Rate and rhythm regular. RESPIRATORY: Clear to auscultation. GASTROINTESTINAL: Abdomen is soft. MUSCULOSKELETAL: No tenderness. No edema. DERMATOLOGIC: No skin rash. NEUROLOGIC: Alert, awake and oriented x3. No focal neurologic deficits. Moving all the extremitie s. PSYCHIATRIC: Mood and affect normal. LABORATORY DATA: Not done today. ASSESSMENT AND PLAN: 1. Acute kidney injury. Renal function is getting better. We will check labs in the morning. We will stop IV fluids. 2. Hypertension. 3. Proteinuria. 4. Obesity. 5. Recheck labs in the morning. We will follow.
[2017-07-16] MEDS: Atorvastatin Calcium 40 MG TAB PO SCH (20:28)
[2017-07-17] MEDS: Ciprofloxacin 500 MG TAB PO SCH ×2 (05:27→20:35)
[2017-07-17 06:21] LABS: Anion Gap 9 mmol/L (10-20); BUN (Urea Nitrogen) 19 mg/dL (9.8-20.1); Calc. Creatinine Clearance 114 mL/min (70-130); Calcium 9.5 mg/dL (7.8-10.44); Carbon Dioxide 27 mmol/L (23-31); Chloride 103 mmol/L (98-107); Estimated GFR-MDRD 39
[2017-07-17] MEDS: hydrALAZINE 25 MG TAB PO SCH ×2 (09:37→16:56)
[2017-07-17] MEDS: cloNIDine 0.2 MG TAB PO SCH ×2 (09:37→20:35)
[2017-07-17] MEDS: Famotidine 20 MG TAB PO SCH ×2 (09:37→20:35)
--- NOTE | 2017-07-17 09:37 | PRG ---
DATE OF SERVICE: 07/17/2017 SUBJECTIVE: The patient was seen and examined at bedside. She is getting ready for her cardiac cat heterization this morning. She did some physical therapy yesterday and apparently she had a hypogly cemic episode this morning. She gets sweaty and her blood sugar went down to 48 this morning. OBJECTIVE: VITAL SIGNS: Blood pressure is 186/79, temperature is 98.1, respiratory rate is 17, pulse is 60, an d O2 saturation is 93%. Her BMI is 52. HEENT: Head is atraumatic, normocephalic. She is able to communicate with me without any problems. Eyes: Pupils respond to light properly. Sclerae is nonicteric. Conjunctivae pinkish. Oral muco sa is moist. NECK: Supple, obese. LUNGS: Clear. HEART: S1, S2 normal, no S3, no S4, no murmur. ABDOMEN: Obese, soft, nontender. Bowel sounds are present, no organomegaly. EXTREMITIES: 1-2+ peripheral edema, nonpitting. NEUROLOGIC: She is alert and oriented x4. There is no sensory or motor deficits. Cranial nerves a re intact. LABORATORY DATA: Showed sodium of 135, potassium 4.3, chloride 103, CO2 27, BUN 19, creatinine 1.3, glucose at 3 o'clock was 48, now it is 80. Calcium 9.5. Microbiology as before, no new findings IMPRESSION: 1. Colitis, most likely infectious, although the lab work is negative. The patient is on oral metr onidazole and levofloxacin. 2. Sepsis with negative blood culture result. 3. Acute stage 3, worsening chronic kidney disease, improved with IV fluids. 4. Diabetes mellitus type 2 with hypoglycemia this morning. I am going to cut back on her long-act ing insulin to 30 units twice a day instead of 40 twice a day. 5. Morbid obesity, body mass index at 52. The patient was counseled regarding her eating habits. 6. Chronic constipation secondary to dehydration and medications. 7. Non-ST elevation myocardial infarction. The patient is on Lipitor, lisinopril, metoprolol, and nifedipine. 8. Profound deconditioning. Apparently she was able to participate in physical therapy yesterday, she walked to the next room and back, but it was stopped because her blood pressure was elevated. 9. Hypertensive urgency. The patient is still requiring additional doses of hydralazine along with her regular clonidine, metoprolol, dosing. We will talk to dielectric tester regarding the treatment. PLAN: We will get a cardiac catheterization done this morning. Dr. Monreal will do the risk approac h, most likely because of her obesity and also she will continue her physical therapy. We will cont inue her metronidazole and levofloxacin. Apparently she does not have any funds and she will not be able to participate in any rehabilitation organized program, but will teach her what she can do at home and her is willing to help. She will continue her on SCDs for thrombosis prophylaxis.
[2017-07-17] MEDS: metroNIDAZOLE 500 MG TAB PO SCH ×3 (09:38→20:35)
[2017-07-17] MEDS: Aspirin 81 mg Enteric Coated Tablet PO SCH (09:38)
[2017-07-17] MEDS: Insulin NPH/Reg Insulin Hm 300 UNITS/3 ML VIAL SC SCH ×2 (09:38→20:36)
[2017-07-17] MEDS: Lisinopril 20 MG TAB PO SCH (09:38)
[2017-07-17] MEDS: Enoxaparin Sodium 40 MG/0.4 ML SYRINGE SC SCH (09:39)
[2017-07-17] MEDS: Clopidogrel Bisulfate 75 MG TAB PO SCH (09:40)
[2017-07-17] MEDS ORDERED: Heparin 10,000 UNITS/1 ML VIAL ONE ×2 (10:14→11:33)
[2017-07-17] MEDS ORDERED: Nitroglycerin 100MG/250ML BOT 250 ML ONE (10:15)
[2017-07-17] MEDS ORDERED: Midazolam HCl 2 mg/2 ml Vial ONE (10:36)
[2017-07-17] MEDS ORDERED: Fentanyl 100 MCG/2 ML VIAL ONE (10:37)
[2017-07-17] MEDS: hydrALAZINE 20 MG/ML VIAL SLOW IVP PRN (13:31)
[2017-07-17] MEDS: NIFEdipine XL 60 MG TAB PO SCH (13:32)
[2017-07-17] MEDS ORDERED: Iopamidol 370 76% 100 ML VIAL ONE (16:48)
--- NOTE | 2017-07-17 20:33 | PRG ---
DATE OF SERVICE: 07/17/2017 SUBJECTIVE: The patient was seen and examined at bedside and overnight events noted. The patient d enies any shortness of breath, chest pain, or palpitation. No history of nausea, vomiting, diarrhea , fever, chills, or cramps. OBJECTIVE: GENERAL: This is a well-built male in no acute distress. VITAL SIGNS: Temperature 98.1, pulse is 74, respiratory rate 18, blood pressure 110/73. HEENT: Atraumatic, normocephalic. Oral mucosa is moist. NECK: Supple. CARDIOVASCULAR: S1, S2 heard. Rate and rhythm regular. RESPIRATORY: Clear to auscultation. GASTROINTESTINAL: Abdomen is soft. MUSCULOSKELETAL: No tenderness. No edema. DERMATOLOGIC: No skin rash. NEUROLOGIC: Alert, awake, and oriented x3. No focal neurologic deficits. Moving all the extremiti es. PSYCHIATRIC: Mood and affect normal. LABORATORY DATA: Potassium 4.3, BUN is 19, creatinine is 1.3. ASSESSMENT AND PLAN: 1. Acute kidney injury. Renal function is much better. 2. Chronic kidney disease stage 3, stable. 3. Heart catheterization. 4. Hypertension. 5. Proteinuria. 6. Obesity. Overall, renal function is stable. I will sign off.
[2017-07-17] MEDS: Atorvastatin Calcium 40 MG TAB PO SCH (20:35)
[2017-07-18] MEDS: Ciprofloxacin 500 MG TAB PO SCH ×2 (05:30→20:51)
[2017-07-18 06:00] LABS: #Eosinphils 0.1 thou/uL (0.0-0.7); #Monocytes 1.3 thou/uL (0.11-0.59); %Basophils 0.2 % (0.0-1.0); %Eosinophils 1.3 % (0.0-10.0); %Lymphocytes 8.7 % (21.0-51.0); %Monocytes 10.9 % (0.0-10.0); Mean Platelet Volume 7.7 fL (7.4-10.4); Red Blood Cell (RBC) Count 4.16 mill/uL (4.20-5.40); White Blood Cell (WBC) Count 11.4 thou/uL (4.8-10.8)
[2017-07-18 06:23] LABS: Anion Gap 12 mmol/L (10-20); BUN (Urea Nitrogen) 21 mg/dL (9.8-20.1); Calc. Creatinine Clearance 116 mL/min (70-130); Calcium 9.3 mg/dL (7.8-10.44); Carbon Dioxide 23 mmol/L (23-31); Chloride 102 mmol/L (98-107); Estimated GFR-MDRD 39
[2017-07-18] MEDS: Aspirin 81 mg Enteric Coated Tablet PO SCH (08:11)
[2017-07-18] MEDS: cloNIDine 0.2 MG TAB PO SCH ×2 (08:11→20:50)
[2017-07-18] MEDS: hydrALAZINE 25 MG TAB PO SCH ×2 (08:11→16:07)
[2017-07-18] MEDS: Clopidogrel Bisulfate 75 MG TAB PO SCH (08:11)
[2017-07-18] MEDS: Enoxaparin Sodium 40 MG/0.4 ML SYRINGE SC SCH (08:12)
[2017-07-18] MEDS: Lisinopril 20 MG TAB PO SCH (08:12)
[2017-07-18] MEDS: Famotidine 20 MG TAB PO SCH ×2 (08:12→20:50)
[2017-07-18] MEDS: Insulin NPH/Reg Insulin Hm 300 UNITS/3 ML VIAL SC SCH ×2 (08:12→20:56)
[2017-07-18] MEDS: metroNIDAZOLE 500 MG TAB PO SCH ×3 (08:13→20:52)
[2017-07-18] MEDS: NIFEdipine XL 60 MG TAB PO SCH ×2 (10:00→20:51)
[2017-07-18] MEDS: HumaLOG 300 UNITS/3 ML VIAL SC PRN (11:58)
--- NOTE | 2017-07-18 12:33 | CON ---
DATE OF ADMISSION: 07/12/2017 DATE OF CONSULTATION: 07/18/2017 HISTORY OF PRESENT ILLNESS: Ms. Foote is a 62-year-old woman who has been in the hospital with sepsis and diarrhea. Her sepsis was presumed C. diff. Her diarrhea has resolved with antibiotic th erapy. Since her admission, she was seen by Dr. Garcia for sinus tachycardia with ST-T wave abnor malities suggestive of ischemia. He elected to take her yesterday for cardiac catheterization. At the time of catheterization, she was found to have approximately 50% proximal LAD lesion. She also has distal OM and distal PDA disease. Ejection fraction is approximately 60%. I have been asked to see her to discuss coronary artery bypass grafting. PAST MEDICAL HISTORY: 1. Morbid obesity - I weigh the patient in the room, she is 386 pounds. 2. Severe deconditioning - the patient at home, walks from chair to bed using a rolling walker. Corona marin supports most of her weight with her arms and her legs really are not very functional. She has wa lked in the dasilva approximately 30 feet before she became severely short of breath and was had to sto p. 3. Diabetes mellitus - blood sugars since she has been in the hospital have been fairly well contro lled. She has not had an A1c checked since she has been in the hospital. She takes, according to h er \\\\"large\\\\" insulin dose twice a day at home. 4. Renal insufficiency, admission creatinine was 2.54 when she was septic and hypotensive. This hsu s come down to 1.37. 5. Hypertension. Her hypertension remains uncontrolled with current blood pressure of 186/79. 6. Venous stasis disease bilaterally. PAST SURGICAL HISTORY: Right shoulder surgery. SOCIAL HISTORY: She does not use tobacco, alcohol or other drugs. She is and accompanied b y her . MEDICATIONS: Reviewed. ALLERGIES: None. REVIEW OF SYSTEMS: Ten-point review of systems performed and is negative except as above. PHYSICAL EXAMINATION: GENERAL: This is a morbidly obese woman resting in bed. VITAL SIGNS: Height 5 feet 11 inches, weight 386 pounds, temperature is 98.1, pulse is 60 and regul ar, blood pressure is 186/79. HEENT: Sclerae nonicteric. NECK: No adenopathy. I cannot hear carotid bruit. LUNGS: Chest has diminished breath sounds bilaterally. She has exceedingly large pendulous breasts . She has a left subclavian central line in place. ABDOMEN: Morbidly obese. EXTREMITIES: Again, morbidly obese, short with venous stasis disease bilaterally. VASCULAR: I can palpate radial pulses bilaterally, but palpation of the femoral and peripheral puls es is fruitless. ASSESSMENT AND PLAN: Unfortunately, this 62-year-old woman has eaten herself into a bad spot. She is so obese that I think any sort of surgical intervention through a sternotomy will lead to sternal healing problems due to her obesity, deconditioning, and need to use her arms to support her weight to walk. She is so decondition currently that she cannot really walk much further than about 30 fe et. She is also in the hospital with sepsis and from Clostridium difficile making in the infectious risk exceedingly high. For coronary anatomy, would require distal OM and PDA and LAD grafts, all venous grafts and I do not think she has enough venous conduit available due to her size and venous stasis disease. My recommendation is for medical treatment.
--- NOTE | 2017-07-18 12:40 | PRG ---
DATE OF SERVICE: 07/18/2017 SUBJECTIVE: The patient was seen and examined at the bedside. She is resting after she had physica l therapy. She got really short of breath after she was done with physical therapy. She was just s een by cardiovascular surgeon, Dr. Seht, who is trying to make a decision whether she would have a bypass surgery. OBJECTIVE: VITAL SIGNS: Blood pressure is 179/76, pulse is 77, respiratory rate is 20 and O2 saturation 95% on 2 liters. GENERAL: She is very obese lady. BMI of 52. HEENT: Eyes; PERRLA. Conjunctivae pinkish. Oral mucosa is moist. NECK: Supple. LUNGS: Bilateral crackles at both bases. HEART: S1 and S2 normal. No S3, no S4. ABDOMEN: Very obese, nontender and nondistended. Bowel sounds are present. EXTREMITIES: 2+ nonpitting edema bilaterally similar. NEUROLOGIC: She is alert and oriented x4. There is no sensorimotor deficits, but the cranial nerve s are intact. LABORATORY DATA: Showed white count of 11.4, hemoglobin 11.4, hematocrit 37.0 and platelet count is 341. Sodium of 133, potassium 4.2, chloride 102, CO2 of 23, BUN 21, creatinine 1.37, glycemia is c hanging from 99-150 and calcium 9.3. IMPRESSION AND PLAN: 1. Colitis, most likely infectious. Continue levofloxacin and metronidazole. 2. Sepsis with negative blood cultures. 3. Acute kidney injury on chronic stage 3, improved with IV fluids. 4. Diabetes mellitus, improved with lowering dose of her Levemir to 30 units twice a day. 5. Morbid obesity. 6. Significant coronary artery disease per cardiac catheterization done yesterday. Cardiovascular surgeon, Dr. Seth, was consulted and we are awaiting for his decision whether she would have bypass or not. 7. Chronic constipation secondary to dehydration and medications. 8. Non-ST elevation myocardial infarction. 9. Profound deconditioning, multifactorial. 10. Hypertensive urgency. Her blood pressure is labile. It goes up and down despite of all medica tions she is getting. Her blood pressure yesterday 133 last night and this morning was 179/76 and C ardiology is managing her blood pressure and she will continue on her deep venous thrombosis prophyl axis with 40 mg of enoxaparin subcutaneously every 24 hours.
[2017-07-18] MEDS: Atorvastatin Calcium 40 MG TAB PO SCH (20:51)
--- NOTE | 2017-07-18 21:43 | PRG ---
DATE OF SERVICE: 07/18/2017 SUBJECTIVE: Patient was seen and examined at bedside and overnight events noted. Patient denies an y shortness of breath or chest pain or palpitation. No history of nausea or vomiting or diarrhea or fever or chills or cramps. OBJECTIVE: GENERAL: This is a well-built female, in no apparent distress. VITAL SIGNS: Temperature 98, pulse 62, respiratory rate 18, blood pressure 148/65. HEENT: Atraumatic, normocephalic. Oral mucosa is moist NECK: Supple. CARDIOVASCULAR: S1 and S2 heard. Rate and rhythm regular. RESPIRATORY: Clear to auscultation. GASTROINTESTINAL: Abdomen is soft. MUSCULOSKELETAL: No tenderness, no edema. DERMATOLOGIC: No skin rash. NEUROLOGIC: Alert and awake and oriented X3. No focal neurologic deficits. Moving all the extremi ties. PSYCHIATRIC: Mood and affect normal. LABORATORY DATA: Potassium is 4.2, BUN is 21, creatinine is 1.3. ASSESSMENT AND PLAN: 1. Acute kidney injury on chronic kidney disease stage 3. Renal function is stable, had cardiac ca theterization yesterday. We will monitor renal function after the contrast exposure. 2. Chronic kidney disease, stage 3. 3. Cardiorenal syndrome. 4. Hypertension. 5. Recent heart catheterization. 6. Proteinuria. 7. Obesity. Plan is to monitor renal function after contrast load.
[2017-07-19] MEDS: Ciprofloxacin 500 MG TAB PO SCH ×2 (05:57→21:27)
[2017-07-19] MEDS: hydrALAZINE 25 MG TAB PO SCH ×2 (08:39→15:33)
[2017-07-19] MEDS: Enoxaparin Sodium 40 MG/0.4 ML SYRINGE SC SCH (08:39)
[2017-07-19] MEDS: NIFEdipine XL 60 MG TAB PO SCH ×2 (08:39→21:26)
[2017-07-19] MEDS: Lisinopril 20 MG TAB PO SCH (08:40)
[2017-07-19] MEDS: Aspirin 81 mg Enteric Coated Tablet PO SCH (08:40)
[2017-07-19] MEDS: Famotidine 20 MG TAB PO SCH ×2 (08:40→21:27)
[2017-07-19] MEDS: metroNIDAZOLE 500 MG TAB PO SCH ×3 (08:40→21:27)
[2017-07-19] MEDS: cloNIDine 0.2 MG TAB PO SCH ×2 (08:40→21:27)
[2017-07-19] MEDS: Insulin NPH/Reg Insulin Hm 300 UNITS/3 ML VIAL SC SCH ×2 (08:47→21:38)
[2017-07-19 08:53] LABS: Anion Gap 18 mmol/L (10-20); BUN (Urea Nitrogen) 24 mg/dL (9.8-20.1); Calc. Creatinine Clearance 106 mL/min (70-130); Calcium 8.9 mg/dL (7.8-10.44); Carbon Dioxide 20 mmol/L (23-31); Chloride 102 mmol/L (98-107); Estimated GFR-MDRD 36
[2017-07-19] MEDS: HumaLOG 300 UNITS/3 ML VIAL SC PRN (12:11)
[2017-07-19] MEDS: Sodium Chloride 0.9% 1,000 ML IV SCH (12:12)
--- NOTE | 2017-07-19 12:43 | PRG ---
DATE OF SERVICE: 07/19/2017 SUBJECTIVE: The patient is seen and examined at the bedside. She is sitting in a recliner now and she feels better, but she still has diarrhea. Apparently, she walked and she had watery uncontrolla ble rectal liquidy stool loss. She does not have any other complaints to offer. She notices that h er sugar is elevated at 250. OBJECTIVE: VITAL SIGNS: Blood pressure is 137/61, pulse is 67, temperature is 98.0 and respirations 18. She i s on oxygen, saturating approximately 95% on room air. GENERAL: An obese lady with a BMI of 51.6. HEENT: Head is atraumatic and normocephalic. Eyes PERRLA. Sclerae nonicteric. Conjunctivae pinki sh. Oral mucosa is moist. NECK: Supple, obese. LUNGS: With few crackles at both bases. HEART: S1 and S2 normal. No S3, no S4. ABDOMEN: Obese and nondistended. Bowel sounds are present. No organomegaly. EXTREMITIES: 2+ peripheral edema, nonpitting. NEUROLOGIC: Intact. She is alert and oriented x4. There are no motor or sensory deficits. Crania l nerves are intact. LABORATORY DATA: Showed sodium of 135, potassium 4.5, chloride 102, CO2 of 20, BUN 24, creatinine 1 .48, glucose 168 this morning, glycemia is ranging from 100s-230s and calcium is 8.9. White count i s 11.4. This is from yesterday. IMPRESSION: 1. Colitis, most likely infectious, although she still has some watery diarrhea even she is on levo floxacin and metronidazole. We will start her on Questran and check stool for WBCs and if this does not work, we will get GI involved. 2. Sepsis with negative blood cultures. 3. Acute kidney injury on chronic stage 3, improved with IV fluids. 4. Diabetes mellitus. Plan to switch her to 25 units in the morning of Levemir and 35 in the eveni ng because she is running high every morning on hypoglycemia. 5. Morbid obesity. 6. Significant coronary artery disease per cardiac catheterization. The patient is evaluated by ca rdiothoracic surgeon, Dr. Seth, for possible bypass. 7. Chronic constipation secondary to dehydration and medications, resolved. 8. Non-ST elevation myocardial infarction during this hospitalization. 9. Profound deconditioning. Patient is participating in physical therapy. 10. Hypertensive urgency, corrected. Plan is to continue current regimen. Awaiting for the final recommendation from CV surgeon. We will start her on Questran 4 grams twice a day to see whether th is helps and check her stool for WBCs. Continue her current medications with 2 antibiotics.
--- NOTE | 2017-07-19 16:02 | PDOC.CTH ---
<Juliane Huang - Last Filed: 07/19/17 16:08> Cardiology Progress Note - Subjective The pt was seen and examined. No overnight events. No cardiac complaints. She is up to chair with any difficulties. - Objective Vital Signs Temp Pulse Resp BP Pulse Ox 07/19/17 12:15 98.2 F 67 18 122/58 L 93 L 07/19/17 08:15 98.0 F 67 18 137/61 94 L 07/19/17 04:00 98.4 F 66 20 146/67 H 95 Admit Weight 368 lb 13.334 oz Weight 370 lb 07/18/17 07/19/17 07/20/17 06:59 06:59 06:59 Intake Total 810 2040 Output Total 2675 650 Balance -1865 1390 - Physical Examination General/Neuro: alert & oriented x3 Neck: no JVD present Lungs: CTA Abdomen: soft Extremities: other: (multiple healed incisions 2ndary to venous stasis?) - Telemetry Telemetry Rhythm: SR 60s - Labs Result Diagrams: 07/18/17 05:42 07/19/17 08:15 Troponin/CKMB CK-MB (CK-2) 36.1 ng/mL (0-6.6) H* 07/13/17 02:55 Troponin I 3.458 ng/mL (< 0.028) H* 07/13/17 02:55 - Assessment/Plan 1. NSTEMI and s/p Cardiac cath - medical treatment only due to diarrhea with C diff infection, Morbid obesity, deconditioning and using arms to walk with walker; on ASA, Lovenox, BBlocker, JAKE. 2. HTN - stable with BBlocker, JAKE, Procardia, and Hydralazine; cont. monitor 3. Septic shock - on Antibiotic 4. CKD stage 3 - change Lovenox to Heparin 5000units SUBQ BID; cont. monitor 5. DM type 2 - ACHS Blood glucose check with Insulin SS 6. Morbid obesity - MAR reviewed . Review of Systems - Review of Systems Constitutional: reports: no symptoms reported EENTM: reports: no symptoms reported Respiratory: reports: no symptoms reported Cardiac (ROS): reports: no symptoms reported ABD/GI: reports: no symptoms reported : reports: no symptoms reported Musculoskeletal: reports: no symptoms reported Skin: reports: no symptoms reported Neurological: reports: no symptoms reported <Jerardo Ferrer - Last Filed: 07/19/17 20:55> Cardiology Progress Note - Objective Vital Signs Temp Pulse Resp BP Pulse Ox 07/19/17 16:25 67 18 154/69 H 93 L 07/19/17 12:15 98.2 F 67 18 122/58 L 93 L Admit Weight 368 lb 13.334 oz Weight 370 lb 07/18/17 07/19/17 07/20/17 06:59 06:59 06:59 Intake Total 810 2040 779 Output Total 2675 650 200 Balance -1865 1390 579 - Labs Result Diagrams: 07/18/17 05:42 07/19/17 08:15 Troponin/CKMB CK-MB (CK-2) 36.1 ng/mL (0-6.6) H* 07/13/17 02:55 Troponin I 3.458 ng/mL (< 0.028) H* 07/13/17 02:55 - Assessment/Plan Pt. was seen and eval. by me. I agree with the A/p by the [employer].No cardiac complaints. continue present therapy for multiple medical issues.
--- NOTE | 2017-07-19 17:40 | PRG ---
DATE OF SERVICE: 07/19/2017 SUBJECTIVE: Patient is still having diarrhea. OBJECTIVE: GENERAL: This is a morbidly obese female seen at the bedside in no apparent distress. Complains of diarrhea. VITAL SIGNS: Temperature , pulse 61, respiratory rate 18 and blood pressure 137/61. HEENT: Atraumatic and normocephalic. Oral mucosa is moist. NECK: Supple. CARDIOVASCULAR: S1 and S2 heard. Rate and rhythm regular. RESPIRATORY: Clear to auscultation. GASTROINTESTINAL: Abdomen is soft. MUSCULOSKELETAL: No tenderness. No edema. DERMATOLOGIC: No skin rash. NEUROLOGIC: Alert, awake and oriented x3. No focal neurologic deficits. Moving all the extremitie s. PSYCHIATRIC: Mood and affect normal. LABORATORY DATA: Potassium is 4.5, BUN is 24 and creatinine is 1.4. ASSESSMENT AND PLAN: 1. Acute kidney injury on chronic kidney disease stage 3. Renal function was stable, but creatinin e is creeping up, still with recent history of heart catheterization. Plan is to give IV fluids NS 50 mL per hour. 2. History of diarrhea. We will check Clostridium difficile. Case discussed with Dr. Alves. 3. Chronic kidney disease. 4. Cardiorenal syndrome. 5. Recent heart catheterization, not a candidate for coronary artery bypass graft, proteinuria. 6. Morbid obesity. Plan is to start IV fluids. Followup renal function closely. Avoid nephrotoxins at this time, curr ently on lisinopril.
[2017-07-19] MEDS: Atorvastatin Calcium 40 MG TAB PO SCH (21:27)
[2017-07-19] MEDS: Heparin 5,000 UNITS/ML VIAL SC SCH (21:27)
[2017-07-19] MEDS: Cholestyramine/Aspartame 4 gm Packet PO SCH (22:20)
[2017-07-20] MEDS: Sodium Chloride 0.9% 1,000 ML IV SCH (05:29)
[2017-07-20] MEDS: Ciprofloxacin 500 MG TAB PO SCH (05:29)
[2017-07-20 06:28] LABS: Anion Gap 12 mmol/L (10-20); BUN (Urea Nitrogen) 24 mg/dL (9.8-20.1); Calc. Creatinine Clearance 119 mL/min (70-130); Calcium 8.8 mg/dL (7.8-10.44); Carbon Dioxide 25 mmol/L (23-31); Chloride 104 mmol/L (98-107); Estimated GFR-MDRD 41
[2017-07-20] MEDS: Heparin 5,000 UNITS/ML VIAL SC SCH ×2 (07:57→22:25)
[2017-07-20] MEDS: Insulin NPH/Reg Insulin Hm 300 UNITS/3 ML VIAL SC SCH ×2 (07:57→22:37)
[2017-07-20] MEDS: NIFEdipine XL 60 MG TAB PO SCH ×2 (07:58→22:18)
[2017-07-20] MEDS: hydrALAZINE 25 MG TAB PO SCH ×2 (07:59→15:44)
[2017-07-20] MEDS: Famotidine 20 MG TAB PO SCH ×2 (07:59→22:19)
[2017-07-20] MEDS: Lisinopril 20 MG TAB PO SCH (07:59)
[2017-07-20] MEDS: metroNIDAZOLE 500 MG TAB PO SCH ×2 (07:59→15:44)
[2017-07-20] MEDS: Aspirin 81 mg Enteric Coated Tablet PO SCH (08:00)
[2017-07-20] MEDS: cloNIDine 0.2 MG TAB PO SCH ×2 (08:00→22:19)
[2017-07-20] MEDS: Cholestyramine/Aspartame 4 gm Packet PO SCH ×2 (09:25→22:53)
[2017-07-20] MEDS: HumaLOG 300 UNITS/3 ML VIAL SC PRN (11:31)
--- NOTE | 2017-07-20 13:53 | PDOC.CTH ---
<Juliane Huang - Last Filed: 07/20/17 13:51> Cardiology Progress Note - Subjective The pt was seen and examined. No overnight events. No cardiac complaints. She walked with PT today without any cardiac complaints. - Objective Vital Signs Temp Pulse Resp BP Pulse Ox 07/20/17 12:19 98.1 F 59 L 16 137/65 95 07/20/17 08:05 98.2 F 65 18 156/70 H 97 07/20/17 08:00 98.2 F 65 18 97 07/20/17 07:58 65 07/20/17 04:00 98.5 F 63 20 134/64 92 L Admit Weight 368 lb 13.334 oz Weight 370 lb 2 oz 07/19/17 07/20/17 07/21/17 06:59 06:59 06:59 Intake Total 2040 2079 Output Total 650 800 Balance 1390 1279 - Physical Examination General/Neuro: alert & oriented x3 Neck: no JVD present Lungs: CTA (diminished at bases) Heart: RRR Abdomen: soft Extremities: other: - Telemetry Telemetry Rhythm: SR 72 - Labs Result Diagrams: 07/18/17 05:42 07/20/17 05:17 Troponin/CKMB CK-MB (CK-2) 36.1 ng/mL (0-6.6) H* 07/13/17 02:55 Troponin I 3.458 ng/mL (< 0.028) H* 07/13/17 02:55 - Assessment/Plan 1. NSTEMI and s/p Cardiac cath - medical treatment only due to diarrhea with C diff infection, Morbid obesity, deconditioning and using arms to walk with walker; on ASA, Heparin, BBlocker, JAKE. 2. HTN - stable with BBlocker, JAKE, Procardia, and Hydralazine; cont. monitor 3. Septic shock - on Antibiotic 4. CKD stage 3 - slightly improved today; cont. monitor 5. DM type 2 - ACHS Blood glucose check with Insulin SS 6. Morbid obesity - MAR reviewed Review of Systems - Review of Systems Constitutional: reports: no symptoms reported EENTM: reports: no symptoms reported Respiratory: reports: no symptoms reported Cardiac (ROS): reports: no symptoms reported ABD/GI: reports: no symptoms reported : reports: no symptoms reported Musculoskeletal: reports: no symptoms reported <Jerardo Ferrer - Last Filed: 07/20/17 23:20> Cardiology Progress Note - Objective Vital Signs Temp Pulse Resp BP Pulse Ox 07/20/17 16:24 98.2 F 64 16 146/68 H 92 L 07/20/17 15:44 64 07/20/17 12:19 98.1 F 59 L 16 137/65 95 Admit Weight 368 lb 13.334 oz Weight 370 lb 2 oz 07/19/17 07/20/17 07/21/17 06:59 06:59 06:59 Intake Total 2040 2079 720 Output Total 650 800 450 Balance 1390 1279 270 - Labs Result Diagrams: 07/18/17 05:42 07/20/17 05:17 Troponin/CKMB CK-MB (CK-2) 36.1 ng/mL (0-6.6) H* 07/13/17 02:55 Troponin I 3.458 ng/mL (< 0.028) H* 07/13/17 02:55 - Assessment/Plan Pt. seen and eval. by me. I agree with the A/P by the [employer]. Pt. waiting to see if she can go to rehab.
--- NOTE | 2017-07-20 14:32 | PRG ---
DATE OF SERVICE: 07/20/2017 SUBJECTIVE: Patient was seen and examined at bedside and overnight events noted. Patient denies an y shortness of breath or chest pain or palpitation. No history of nausea or vomiting or diarrhea or fever or chills or cramps. OBJECTIVE: GENERAL: This is a morbidly obese female in no apparent distress. VITAL SIGNS: Temperature 98.2, pulse 65, respiratory rate 18, blood pressure 137/65. HEENT: Atraumatic, normocephalic. Oral mucosa is moist. NECK: Supple. CARDIOVASCULAR: S1, S2 heard. Rate and rhythm regular. RESPIRATORY: Clear to auscultation. GASTROINTESTINAL: Abdomen is soft. MUSCULOSKELETAL: No tenderness, no edema. DERMATOLOGIC: No skin rash. NEUROLOGIC: Alert and awake and oriented x3. No focal neurologic deficits. Moving all the extremi ties. PSYCHIATRIC: Mood and affect normal. LABORATORY DATA: Potassium is 3.8, creatinine is 1.3. ASSESSMENT AND PLAN: 1. Acute kidney injury on chronic kidney disease. Renal function is better with intravenous hydrat ion. We will stop intravenous fluids. 2. History of diarrhea. Clostridium difficile is negative. 3. Chronic kidney disease, stage 3. 4. Cardiorenal syndrome. 5. Morbid obesity. 6. Edema, controlled. 5. Hypertension, stable. 6. Stop intravenous fluids and monitor renal function status post and heart catheterization.
--- NOTE | 2017-07-20 15:54 | PRG ---
DATE OF SERVICE: 07/20/2017 SUBJECTIVE: The patient is seen and examined in the bedside. She is participating in her physical therapy as she is supposed to. She is able to walk short distance according to her. Her appetite i s good. She is getting IV fluids ordered by Dr. Louis. OBJECTIVE: VITAL SIGNS: Blood pressure is 137/65, pulse is 59, temperature is 98.1, respiratory rate is 16, an d pulse oximetry is 95%. HEENT: Atraumatic, normocephalic. Eyes PERRLA. Conjunctivae pinkish. Sclerae nonicteric. Oral m ucosa is moist. NECK: Obese, I am not able to palpate any thyroid. LUNGS: Breath sounds are diminished at both bases. No wheezing. CARDIOVASCULAR: S1, S2 normal, no S3, no S4. ABDOMEN: Very obese, nondistended. Bowel sounds are present. EXTREMITIES: 2+ nonpitting peripheral edema at least. NEUROLOGIC: She is alert and oriented x4. There is no any motor or sensory deficit present. Crani al nerves are intact. LABORATORY DATA: We do not have labs today, none except glycemia which is 214, the range is from 12 0-214. Also, electrolytes within normal limits. BUN is 24, creatinine 1.31, and glucose is 120 on BMP panel. Microbiology: C. difficile antigen and toxins are negative and stool lactoferrin is pos itive for presence of fecal lactoferrin. IMPRESSION: 1. Colitis, most likely infectious, although she still has some watery diarrhea. She is on levoflo xacin and metronidazole. She was started on Questran and noticed significant improvement, although her lactoferrin came back positive. We will continue current regimen if this does not really change her diarrhea, we will ask GI to be involved. 2. Sepsis with negative blood cultures. 3. Acute kidney injury on chronic stage 3, receiving IV fluids. 4. Diabetes mellitus, better controlled since we changed her to 25 units of her Levemir in the morn ing and 35 in the evening. 5. Morbid obesity. The patient is participating in physical therapy. 6. Significant coronary artery disease per cardiac catheterization. Patient was denied bypass surg kendell at least at this time. She will try to lose weight and have the surgery done later to decrease the risk of complications. 7. Chronic constipation secondary to dehydration and medications, resolved. 8. Non-ST elevation myocardial infarction. 9. Profound deconditioning. 10. Hypertensive urgency, corrected. PLAN: As I mentioned above. The patient is still treated with metronidazole and the Cipro and desp ite of this, she still has some on and off watery stools. She was started on Questran 4 grams twice a day which improved her diarrhea to some extent her C. difficile toxin and antigen testing came ba ck negative. She is participating in physical therapy daily. She is unfunded and it is going to be very difficult to find any provider to help her at home. If not, she will be discharged home and h er will help her to do physical therapy at home as she was getting during this hospitalizati on.
[2017-07-20] MEDS: Atorvastatin Calcium 40 MG TAB PO SCH (22:19)
[2017-07-21 05:54] LABS: #Eosinphils 0.3 thou/uL (0.0-0.7); #Lymphocytes 1.2 thou/uL (1.20-3.40); #Monocytes 0.7 thou/uL (0.11-0.59); #Neutrophils 4.7 thou/uL (1.40-6.50); %Basophils 0.6 % (0.0-1.0); %Lymphocytes 16.7 % (21.0-51.0); %Monocytes 10.5 % (0.0-10.0); Hematocrit 33.4 % (36.0-47.0); Mean Platelet Volume 7.6 fL (7.4-10.4); Red Blood Cell (RBC) Count 3.75 mill/uL (4.20-5.40)
[2017-07-21 06:18] LABS: Anion Gap 10 mmol/L (10-20); BUN (Urea Nitrogen) 20 mg/dL (9.8-20.1); BUN/Creatinine Ratio 17.24; Calc. Creatinine Clearance 135 mL/min (70-130); Calcium 8.7 mg/dL (7.8-10.44); Carbon Dioxide 25 mmol/L (23-31); Chloride 105 mmol/L (98-107); Estimated GFR-MDRD 47; Magnesium 1.5 mg/dL (1.6-2.6)
[2017-07-21] MEDS ORDERED: Magnesium 2 GM/NS 0.9% 100 ML 2 GM in Premix Bag 1 BAG IVPB SCH (07:30)
[2017-07-21] MEDS ORDERED: Aspirin 325 mg Enteric Coated Tablet PO SCH (09:00)
[2017-07-21] MEDS: hydrALAZINE 25 MG TAB PO SCH ×2 (09:54→16:36)
[2017-07-21] MEDS: cloNIDine 0.2 MG TAB PO SCH ×2 (09:55→22:49)
[2017-07-21] MEDS: Lisinopril 20 MG TAB PO SCH (09:55)
[2017-07-21] MEDS: Famotidine 20 MG TAB PO SCH ×2 (09:56→22:48)
[2017-07-21] MEDS: NIFEdipine XL 60 MG TAB PO SCH ×2 (09:56→22:49)
[2017-07-21] MEDS: Spironolactone/Hctz 25 MG/25 MG TABLET PO SCH (10:22)
[2017-07-21] MEDS: Heparin 5,000 UNITS/ML VIAL SC SCH ×3 (10:30→22:50)
--- NOTE | 2017-07-21 10:30 | PDOC.PN ---
- Subjective Encounter Start Date: 07/21/17 Encounter Start Time: 09:30 Patient seen and examined. No new complaints. No overnight events. Diarrhea slowly improving. Some lower abd discomfort. - Objective MAR Reviewed: Yes Vital Signs & Weight: Vital Signs (12 hours) Temp Pulse Resp BP BP Pulse Ox 07/21/17 09:56 74 154/70 H 07/21/17 09:55 154/70 H 07/21/17 09:54 74 154/70 H 07/21/17 04:27 95 07/21/17 04:00 98.5 F 69 18 155/67 H 93 L 07/21/17 00:00 65 18 142/67 H Weight Admit Weight 368 lb 13.334 oz Weight 369 lb 14.4 oz Most Recent Monitor Data Heart Rate from ECG 79 NIBP 178/88 NIBP BP-Mean 113 Respiration from ECG 19 SpO2 97 I&O: 07/20/17 07/21/17 07/22/17 06:59 06:59 06:59 Intake Total 2079 1110 Output Total 800 450 Balance 1279 660 Result Diagrams: 07/21/17 05:40 07/21/17 05:40 Additional Labs: Accuchecks 07/21/17 07/20/17 07/20/17 06:28 20:50 16:39 POC Glucose 119 H 114 H 110 07/20/17 11:16 POC Glucose 214 H EKG Reviewed by me: Yes (Tele SR) Phys Exam - Physical Examination Constitutional: NAD Respiratory: no wheezing, no rhonchi Cardiovascular: RRR, no rub Gastrointestinal: soft, non-tender, positive bowel sounds Musculoskeletal: edema present Neurological: non-focal, moves all 4 limbs Dx/Plan (1) Colitis presumed infectious Code(s): A09 - INFECTIOUS GASTROENTERITIS AND COLITIS, UNSPECIFIED Status: Acute Comment: ?ischemic (2) Hypomagnesemia Code(s): E83.42 - HYPOMAGNESEMIA Status: Acute (3) NSTEMI (non-ST elevated myocardial infarction) Code(s): I21.4 - NON-ST ELEVATION (NSTEMI) MYOCARDIAL INFARCTION Status: Acute (4) Septic shock Code(s): A41.9 - SEPSIS, UNSPECIFIED ORGANISM; R65.21 - SEVERE SEPSIS WITH SEPTIC SHOCK Status: Resolved (5) Diabetes mellitus type 2 in obese Code(s): E11.69 - TYPE 2 DIABETES MELLITUS WITH OTHER SPECIFIED COMPLICATION; E66.9 - OBESITY, UNSPECIFIED Status: Chronic (6) Acute worsening of stage 3 chronic kidney disease Code(s): N18.3 - CHRONIC KIDNEY DISEASE, STAGE 3 (MODERATE) Status: Acute Comment: improving (7) Morbid obesity with BMI of 50.0-59.9, adult Code(s): E66.01 - MORBID (SEVERE) OBESITY DUE TO EXCESS CALORIES; Z68.43 - BODY MASS INDEX (BMI) 50-59.9 , ADULT Status: Chronic (8) HTN (hypertension) Code(s): I10 - ESSENTIAL (PRIMARY) HYPERTENSION Status: Acute (9) Other issues per previous notes - Plan cont current plan of care, plan discussed w/ family, vasquez catheter, DVT proph w /heparin, DVT proph w/SCDs * Replace Mg * Increase activity * DC vasquez * AM labs * Consult clarification operator * Consult GI due to persistent diarrhea Review of Systems - Review of Systems Respiratory: negative: Cough, Dry, Shortness of Breath, Hemoptysis, SOB with Excertion, Pleuritic Pain, Sputum, Wheezing Cardiovascular: negative: Chest Pain, Palpitations, Orthopnea, Paroxysmal Noc. Dyspnea, Edema, Light Headedness - Medications/Allergies Allergies/Adverse Reactions: Allergies Allergy/AdvReac Type Severity Reaction Status Date / Time No Known Allergies Allergy Unverified 07/12/17 21:53 Medications: Current Medications Acetaminophen (Tylenol) 650 mg PO Q4H PRN PRN Reason: Headache/Fever or Pain Hydrocodone Bitart/Acetaminophen ([place] 5/325) 1 tab PO Q4H PRN PRN Reason: Moderate Pain (4-6) Last Admin: 07/17/17 13:32 Dose: 1 tab Aspirin (Ecotrin) 325 mg PO DAILY [facility] Last Admin: 07/21/17 10:06 Dose: 325 mg Atorvastatin Calcium (Lipitor) 40 mg PO HS [facility] Last Admin: 07/20/17 22:19 Dose: 40 mg Calcium/Vitamin D (Caltrate 600 + Vit D) 1 [facility] Cholestyramine Resin (Questran Light) 4 gm PO 1000,2200 [facility] Last Admin: 07/20/17 22:53 Dose: 4 gm Clonidine (Catapres) 0.2 mg PO BID [facility] Last Admin: 07/21/17 09:55 Dose: 0.2 mg Clonidine (Catapres) 0.1 mg PO Q4H PRN PRN Reason: Severe Hypertension Last Admin: 07/16/17 14:25 Dose: 0.1 mg Dextrose/Water (Dextrose 50%) 25 gm SLOW IVP PRN PRN PRN Reason: Hypoglycemia Last Admin: 07/17/17 01:48 Dose: 25 gm Famotidine (Pepcid) 20 mg PO BID [facility] Last Admin: 07/21/17 09:56 Dose: 20 mg Glucagon (Glucagon) 1 mg IM PRN PRN PRN Reason: Hypoglycemia HCTZ/Spironolactone (Aldactazide) 1 tab PO QAM [facility] Last Admin: 07/21/17 10:22 Dose: 1 tab Heparin Sodium (Porcine) (Heparin) 5,000 units SC TID [facility] Hydralazine HCl (Apresoline) 50 mg PO BID-AC [facility] Last Admin: 07/21/17 09:54 Dose: 50 mg Hydralazine HCl (Apresoline) 10 mg SLOW IVP Q15MIN PRN PRN Reason: Severe Hypertension Last Admin: 07/17/17 13:31 Dose: 10 mg Dextrose/Water (D5w) 1,000 mls @ 0 mls/hr IV .Q0M PRN; As Directed PRN Reason: Hypoglycemia Insulin Human Isoph/Insulin Regular (Humulin 70/30) 25 units SC QAM [facility] Last Admin: 07/20/17 07:57 Dose: 25 unit Insulin Human Isoph/Insulin Regular (Humulin 70/30) 35 units SC QPM [facility] Last Admin: 07/20/17 22:37 Dose: Not Given Insulin Human Lispro (Humalog) 0 units SC .MODERATE SLIDING SC PRN PRN Reason: Moderate Correctional Scale Last Admin: 07/20/17 11:31 Dose: 4 unit Insulin Human Lispro (Humalog) 0 units SC .BEDTIME SLIDING SC PRN PRN Reason: Bedtime Correctional Scale Lisinopril (Zestril) 40 mg PO DAILY [facility] Last Admin: 07/21/17 09:55 Dose: 40 mg Metoprolol Succinate (Toprol Xl) 100 mg PO BID [facility] Last Admin: 07/21/17 09:57 Dose: 100 mg Nifedipine (Procardia Xl) 60 mg PO BID [facility] Last Admin: 07/21/17 09:56 Dose: 60 mg Ondansetron HCl (Zofran) 4 mg IVP Q6H PRN PRN Reason: Nausea/Vomiting Saccharomyces Boulardii (Florastor) 250 mg PO HS [facility]OMI Sodium Chloride (Flush - Normal Saline) 10 ml IVF Q12HR NAOMI Last Admin: 07/21/17 10:06 Dose: 10 ml Sodium Chloride (Flush - Normal Saline) 10 ml IVF PRN PRN PRN Reason: Saline Flush Last Admin: 07/17/17 13:37 Dose: 10 ml
[2017-07-21] MEDS: Insulin NPH/Reg Insulin Hm 300 UNITS/3 ML VIAL SC SCH ×2 (10:36→22:50)
--- NOTE | 2017-07-21 10:50 | PRG ---
DATE OF SERVICE: 07/21/2017 SUBJECTIVE: Patient was seen and examined at bedside and overnight events noted. Patient denies an y shortness of breath or chest pain or palpitation. No history of nausea or vomiting or diarrhea or fever or chills or cramps. OBJECTIVE: GENERAL: This is a morbidly obese female in no apparent distress. VITAL SIGNS: Temperature 98.5, pulse 74, respiratory rate 19, blood pressure 154/70. HEENT: Atraumatic, normocephalic. Oral mucosa is moist. NECK: Supple. CARDIOVASCULAR: S1 and S2 heard, rate and rhythm regular. RESPIRATORY: Clear to auscultation. GASTROINTESTINAL: Abdomen is soft. MUSCULOSKELETAL: No tenderness, no edema. DERMATOLOGIC: No skin rash. NEUROLOGIC: Alert and awake and oriented X3. No focal neurologic deficits. Moving all the extremi ties. PSYCHIATRIC: Mood and affect normal. LABORATORY DATA: Potassium is 4.0 and creatinine is 1.1. ASSESSMENT AND PLAN: 1. Acute kidney injury on chronic kidney disease stage 3, renal function is much better and close t o her baseline. 2. Diarrhea, better. 3. Chronic kidney disease, stage 3. 4. Cardiorenal syndrome. 5. Morbid obesity. 6. Edema. 7. Hypertension, stable. I will sign off. Please call back with any questions. Follow up in clinic in 1-2 weeks.
[2017-07-21] MEDS: Cholestyramine/Aspartame 4 gm Packet PO SCH ×2 (11:00→23:25)
--- NOTE | 2017-07-21 13:34 | CON ---
REASON FOR CONSULTATION: Diarrhea, ongoing. HISTORY OF PRESENT ILLNESS: Ms. Foote is a 62-year-old female who was admitted to the hospital on 07/12/2017 after presenting to the emergency room with acute onset of diarrhea, hypotension and w eakness. She was found to have systemic inflammatory response syndrome with elevated white count an d lactic acid and renal insufficiency. She had a CAT scan at that time showing severe colitis and e ilda in the sigmoid colon and rectum. She was started on broad spectrum antibiotics, fluid resuscit ation and treated in the ICU and slowly improved. She also had chest pain, she had a non-Q-wave AR with a troponin of 3.4, MB of 36. It was felt to be related to demand ischemia. She underwent a h eart cath which showed 50% proximal LAD lesion distal OM and distal PDA disease. There was a consul t with Cardiovascular Surgery who felt that she was not a good surgical candidate with her morbid ob esity and it was recommended she be treated medically and lose weight before considering further walt gical interventions. Gradually she has improved, but has continued to have loose stools. Over the weekend she was still having some diarrhea. She was started on Questran. She had stool checked for fecal white blood jayne l, which was positive, negative for C. diff toxin. I was asked to see her despite the Questran she was still having loose stools yesterday. The patient states she is having some suprapubic cramping. She had 2 bowel movements today, 1 with incontinence. There is no blood in her stool now, but had bleeding when she initially came in. Her notes when he brought her to the hospital she had had incontinence at home and there was bl ood with that as well. In the past, she reports her stools have been up and down with constipation alternating with diarrhea. She has had extreme episodes of diarrhea after prolonged constipation be fore. With this episodes, she did not take any laxatives. Presently she is without any overt pain. She is eating a regular diet. PAST MEDICAL HISTORY: Morbid obesity, diabetes, hypertension, hyperlipidemia. PAST SURGICAL HISTORY: Right shoulder surgery, recent heart cath, previous appendectomy and previou s ERCP for choledocholithiasis from biliary pancreatitis. SOCIAL HISTORY: Negative for alcohol, drugs, tobacco. FAMILY HISTORY: Heart disease. Negative for colon cancer or colitis. HOME MEDICATIONS: Hydralazine, Catapres, Lovastatin, lisinopril, insulin 70/30 40 b.i.d., amlodipin e 10 mg daily. PRESENT MEDICATIONS: Tylenol, Ecotrin 325 daily, Lipitor, Caltrate, Questran, clonidine, dextrose, famotidine, Aldactazide, heparin 5000 t.i.d., insulin sliding scale, hydrocodone p.r.n., lisinopril, metoprolol, nifedipine and saccharomyces boulardii. She was on Levaquin and Flagyl until yesterday . She had 6 days of antibiotics. REVIEW OF SYSTEMS: The patient has a history of chronic up and down alternating diarrhea and consti pation. She states she has been told she has IBS in the past. She has not had a previous colonosco py. She gets her healthcare from [facility] and was going to consider a fecal occult blood test , but really never got around the doing that. PHYSICAL EXAMINATION: GENERAL: The patient is resting in bed presently. VITAL SIGNS: Pulse 74, temperature 98.5, T-max 99 on 07/19/2017, blood pressure 154/70. LUNGS: Clear. ABDOMEN: Soft. There is mild tenderness in the lower abdomen. No rebound or guarding. LABORATORY STUDIES: White count 7, hemoglobin was 10.5, it was 15 on admission. MCV is 89, platele t count 382, INR was 1.1 on admission. Sodium 136, potassium 4, BUN and creatinine are 21 and 1.16, glucose 128. Magnesium 1.5, phosphorus 3, albumin 2.8. Admission bilirubin was 1.4, AST and ALT w ere 41 and 23, BUN and creatinine were 38 and 2.5. Stool studies positive for fecal lactoferrin yes terday, negative Clostridium difficile on admission. Rapid parasite screen negative. Occult blood positive, Clostridium difficile negative. Campylobacter antigen negative. Shiga toxin negative, bu t no routine cultures were obtained. ASSESSMENT: 1. Acute diarrheal illness with presentation. It is unclear if this was infection, viral or bacter ial or whether maybe she had had a mild bout of diarrhea after prolonged constipation with resultant dehydration and ischemia. She does have colitis involving the sigmoid and rectum on her CAT scan w hich is a little bit atypical for either ischemic colitis or total bacterial colitis. She does have chronic bowel problems with constipation, diarrhea, but not bleeding before. It does not seem she had antecedent diagnosis of colitis, but that is always something to consider. She received a full 7-day course of antibiotics which I think is adequate and these have been discontinued. C. diff rem ains negative. 2. With regard to her ongoing loose stools, Colestid is reasonable, and I agree with probiotics and stopping her antibiotics. I would go ahead and add a lactose free diet. If she continues to have issues she is going to need a colonoscopy before she goes home. We will also talk with her cardiolo gist about this first as she had a non-Q-wave this admission, but she has had no chest pain since.
[2017-07-21] MEDS: Calcium Carbonate + Vit D 1 TAB PO SCH (19:34)
[2017-07-21] MEDS ORDERED: Saccharomyces boulardii 250 MG CAP PO SCH (21:00)
[2017-07-21] MEDS: Atorvastatin Calcium 40 MG TAB PO SCH (22:47)
[2017-07-22 05:51] LABS: #Eosinphils 0.2 thou/uL (0.0-0.7); #Lymphocytes 1.5 thou/uL (1.20-3.40); #Monocytes 0.8 thou/uL (0.11-0.59); %Basophils 0.4 % (0.0-1.0); %Eosinophils 2.7 % (0.0-10.0); %Lymphocytes 17.2 % (21.0-51.0); %Monocytes 9.2 % (0.0-10.0); Hematocrit 34.3 % (36.0-47.0); Mean Platelet Volume 7.4 fL (7.4-10.4); Red Blood Cell (RBC) Count 3.87 mill/uL (4.20-5.40); White Blood Cell (WBC) Count 8.5 thou/uL (4.8-10.8)
[2017-07-22 06:17] LABS: Anion Gap 11 mmol/L (10-20); BUN (Urea Nitrogen) 16 mg/dL (9.8-20.1); BUN/Creatinine Ratio 14.41; Calc. Creatinine Clearance 140 mL/min (70-130); Calcium 9.3 mg/dL (7.8-10.44); Carbon Dioxide 26 mmol/L (23-31); Chloride 103 mmol/L (98-107); Estimated GFR-MDRD 50; Magnesium 1.8 mg/dL (1.6-2.6); Phosphorus 2.9 mg/dL (2.3-4.7)
[2017-07-22] MEDS ORDERED: Aspirin 325 mg Enteric Coated Tablet PO SCH (08:43)
[2017-07-22] MEDS: NIFEdipine XL 60 MG TAB PO SCH ×2 (09:12→21:39)
[2017-07-22] MEDS: Heparin 5,000 UNITS/ML VIAL SC SCH ×3 (09:12→21:42)
[2017-07-22] MEDS: hydrALAZINE 25 MG TAB PO SCH ×2 (09:12→16:02)
[2017-07-22] MEDS: cloNIDine 0.2 MG TAB PO SCH ×2 (09:13→21:38)
[2017-07-22] MEDS: Clopidogrel Bisulfate 75 MG TAB PO SCH (09:13)
[2017-07-22] MEDS: Spironolactone/Hctz 25 MG/25 MG TABLET PO SCH (09:13)
[2017-07-22] MEDS: Calcium Carbonate + Vit D 1 TAB PO SCH ×2 (09:13→16:04)
[2017-07-22] MEDS: Lisinopril 20 MG TAB PO SCH (09:14)
[2017-07-22] MEDS: Aspirin 81 mg Enteric Coated Tablet PO SCH (09:14)
[2017-07-22] MEDS: Famotidine 20 MG TAB PO SCH ×2 (09:14→21:39)
[2017-07-22] MEDS: Insulin NPH/Reg Insulin Hm 300 UNITS/3 ML VIAL SC SCH (09:24)
[2017-07-22] MEDS ORDERED: Saccharomyces boulardii 250 MG CAP PO SCH (09:30)
--- NOTE | 2017-07-22 10:36 | PDOC.PN ---
- Subjective Encounter Start Date: 07/22/17 Encounter Start Time: 09:30 Patient seen and examined. Diarrhea improving. No overnight events - Objective MAR Reviewed: Yes Vital Signs & Weight: Vital Signs (12 hours) Temp Pulse Resp BP BP Pulse Ox 07/22/17 09:14 157/68 H 07/22/17 09:13 157/68 H 07/22/17 09:12 68 157/68 H 07/22/17 08:00 97.5 F L 68 18 157/68 H 93 L 07/22/17 04:00 98.5 F 63 18 133/60 93 L 07/22/17 02:24 97 07/21/17 22:49 68 167/74 H 167/74 H Weight Admit Weight 368 lb 13.334 oz Weight 367 lb 1 oz Most Recent Monitor Data Heart Rate from ECG 79 NIBP 178/88 NIBP BP-Mean 113 Respiration from ECG 19 SpO2 97 I&O: 07/21/17 07/22/17 07/23/17 06:59 06:59 06:59 Intake Total 1110 1160 Output Total 450 1400 Balance 660 -240 Result Diagrams: 07/22/17 05:34 07/22/17 05:34 Additional Labs: Accuchecks 07/22/17 07/22/17 07/21/17 09:20 05:56 20:25 POC Glucose 125 H 78 126 H 07/21/17 07/21/17 16:50 10:35 POC Glucose 201 H 196 H EKG Reviewed by me: Yes (Tele SR) Phys Exam - Physical Examination Constitutional: NAD Respiratory: no wheezing, no rhonchi Cardiovascular: RRR, no rub Gastrointestinal: soft, non-tender, positive bowel sounds Musculoskeletal: edema present Neurological: non-focal, moves all 4 limbs Dx/Plan (1) Colitis presumed infectious Code(s): A09 - INFECTIOUS GASTROENTERITIS AND COLITIS, UNSPECIFIED Status: Acute Comment: ?ischemic (2) Hypomagnesemia Code(s): E83.42 - HYPOMAGNESEMIA Status: Acute Comment: corrected (3) NSTEMI (non-ST elevated myocardial infarction) Code(s): I21.4 - NON-ST ELEVATION (NSTEMI) MYOCARDIAL INFARCTION Status: Acute (4) Septic shock Code(s): A41.9 - SEPSIS, UNSPECIFIED ORGANISM; R65.21 - SEVERE SEPSIS WITH SEPTIC SHOCK Status: Resolved (5) Diabetes mellitus type 2 in obese Code(s): E11.69 - TYPE 2 DIABETES MELLITUS WITH OTHER SPECIFIED COMPLICATION; E66.9 - OBESITY, UNSPECIFIED Status: Chronic (6) Acute worsening of stage 3 chronic kidney disease Code(s): N18.3 - CHRONIC KIDNEY DISEASE, STAGE 3 (MODERATE) Status: Acute Comment: improving (7) Morbid obesity with BMI of 50.0-59.9, adult Code(s): E66.01 - MORBID (SEVERE) OBESITY DUE TO EXCESS CALORIES; Z68.43 - BODY MASS INDEX (BMI) 50-59.9 , ADULT Status: Chronic (8) HTN (hypertension) Code(s): I10 - ESSENTIAL (PRIMARY) HYPERTENSION Status: Chronic (9) Other issues per previous notes - Plan cont current plan of care, DVT proph w/heparin, DVT proph w/SCDs * GI input appreciated * Cleared by Cardiology for dc * DC later today or in AM if ok with GI * Cont to monitor Review of Systems - Review of Systems Respiratory: negative: Cough, Dry, Shortness of Breath, Hemoptysis, SOB with Excertion, Pleuritic Pain, Sputum, Wheezing Cardiovascular: negative: Chest Pain, Palpitations, Orthopnea, Paroxysmal Noc. Dyspnea, Edema, Light Headedness, Other Gastrointestinal: negative: Nausea, Vomiting, Abdominal Pain, Diarrhea, Constipation, Melena, Hematochezia, Other - Medications/Allergies Allergies/Adverse Reactions: Allergies Allergy/AdvReac Type Severity Reaction Status Date / Time No Known Allergies Allergy Unverified 07/12/17 21:53 Medications: Current Medications Acetaminophen (Tylenol) 650 mg PO Q4H PRN PRN Reason: Headache/Fever or Pain Aspirin (Ecotrin) 81 mg PO DAILY [facility] Last Admin: 07/22/17 09:14 Dose: 81 mg Atorvastatin Calcium (Lipitor) 40 mg PO HS [facility] Last Admin: 07/21/17 22:47 Dose: 40 mg Calcium/Vitamin D (Caltrate 600 + Vit D) 1 tab PO BID-WM [facility] Last Admin: 07/22/17 09:13 Dose: 1 tab Cholestyramine Resin (Questran Light) 4 gm PO 1000,2200 [facility] Last Admin: 07/21/17 23:25 Dose: 4 gm Clonidine (Catapres) 0.2 mg PO BID [facility] Last Admin: 07/22/17 09:13 Dose: 0.2 mg Clonidine (Catapres) 0.1 mg PO Q4H PRN PRN Reason: Severe Hypertension Last Admin: 07/16/17 14:25 Dose: 0.1 mg Clopidogrel Bisulfate (Plavix) 75 mg PO DAILY [facility] Last Admin: 07/22/17 09:13 Dose: 75 mg Dextrose/Water (Dextrose 50%) 25 gm SLOW IVP PRN PRN PRN Reason: Hypoglycemia Last Admin: 07/17/17 01:48 Dose: 25 gm Famotidine (Pepcid) 20 mg PO BID [facility] Last Admin: 07/22/17 09:14 Dose: 20 mg Glucagon (Glucagon) 1 mg IM PRN PRN PRN Reason: Hypoglycemia HCTZ/Spironolactone (Aldactazide) 1 tab PO QAM [facility] Last Admin: 07/22/17 09:13 Dose: 1 tab Heparin Sodium (Porcine) (Heparin) 5,000 units SC TID [facility] Last Admin: 07/22/17 09:12 Dose: 5,000 units Hydralazine HCl (Apresoline) 50 mg PO BID-AC [facility] Last Admin: 07/22/17 09:12 Dose: 50 mg Hydralazine HCl (Apresoline) 10 mg SLOW IVP Q15MIN PRN PRN Reason: Severe Hypertension Last Admin: 07/17/17 13:31 Dose: 10 mg Dextrose/Water (D5w) 1,000 mls @ 0 mls/hr IV .Q0M PRN; As Directed PRN Reason: Hypoglycemia Insulin Human Isoph/Insulin Regular (Humulin 70/30) 25 units SC QAM [facility] Last Admin: 07/22/17 09:24 Dose: 25 unit Insulin Human Isoph/Insulin Regular (Humulin 70/30) 25 units SC QPM [facility] Insulin Human Lispro (Humalog) 0 units SC .MODERATE SLIDING SC PRN PRN Reason: Moderate Correctional Scale Last Admin: 07/20/17 11:31 Dose: 4 unit Insulin Human Lispro (Humalog) 0 units SC .BEDTIME SLIDING SC PRN PRN Reason: Bedtime Correctional Scale Lisinopril (Zestril) 40 mg PO DAILY [facility] Last Admin: 07/22/17 09:14 Dose: 40 mg Metoprolol Succinate (Toprol Xl) 100 mg PO BID [facility] Last Admin: 07/22/17 09:14 Dose: 100 mg Nifedipine (Procardia Xl) 60 mg PO BID [facility] Last Admin: 07/22/17 09:12 Dose: 60 mg Ondansetron HCl (Zofran) 4 mg IVP Q6H PRN PRN Reason: Nausea/Vomiting Saccharomyces Boulardii (Florastor) 250 mg PO NOW [facility] Stop: 07/22/17 12:00 Saccharomyces Boulardii (Florastor) 250 mg PO BID [facility] Sodium Chloride (Flush - Normal Saline) 10 ml IVF Q12HR [facility] Last Admin: 07/22/17 09:14 Dose: 10 ml Sodium Chloride (Flush - Normal Saline) 10 ml IVF PRN PRN PRN Reason: Saline Flush Last Admin: 07/17/17 13:37 Dose: 10 ml
[2017-07-22] MEDS: Cholestyramine/Aspartame 4 gm Packet PO SCH ×2 (10:57→21:53)
[2017-07-22] MEDS: HumaLOG 300 UNITS/3 ML VIAL SC PRN (12:34)
[2017-07-22] MEDS ORDERED: Insulin NPH/Reg Insulin Hm 300 UNITS/3 ML VIAL SC SCH (21:00)
[2017-07-22] MEDS ORDERED: Nystatin Powder 15 GM BOT TOP SCH (21:00)
[2017-07-22] MEDS: Atorvastatin Calcium 40 MG TAB PO SCH (21:38)
[2017-07-22] MEDS: Saccharomyces boulardii 250 MG CAP PO SCH (21:40)
[2017-07-22 23:49] VITALS: TEMP 98
[2017-07-23 05:22] LABS: Anion Gap 12 mmol/L (10-20); BUN (Urea Nitrogen) 14 mg/dL (9.8-20.1); BUN/Creatinine Ratio 11.76; Calc. Creatinine Clearance 130 mL/min (70-130); Calcium 9.7 mg/dL (7.8-10.44); Carbon Dioxide 26 mmol/L (23-31); Chloride 102 mmol/L (98-107); Estimated GFR-MDRD 46; Phosphorus 3.2 mg/dL (2.3-4.7)
[2017-07-23 06:47] VITALS: BMI 51.2
[2017-07-23 08:22] VITALS: BP 159/73
[2017-07-23] MEDS: Lisinopril 20 MG TAB PO SCH (08:50)
[2017-07-23] MEDS: hydrALAZINE 25 MG TAB PO SCH (08:50)
[2017-07-23] MEDS: Aspirin 81 mg Enteric Coated Tablet PO SCH (08:50)
[2017-07-23] MEDS: Calcium Carbonate + Vit D 1 TAB PO SCH (08:51)
[2017-07-23] MEDS: cloNIDine 0.2 MG TAB PO SCH (08:51)
[2017-07-23] MEDS: NIFEdipine XL 60 MG TAB PO SCH (08:51)
[2017-07-23] MEDS: Famotidine 20 MG TAB PO SCH (08:51)
[2017-07-23] MEDS: Saccharomyces boulardii 250 MG CAP PO SCH (08:52)
[2017-07-23] MEDS: Clopidogrel Bisulfate 75 MG TAB PO SCH (08:52)
[2017-07-23] MEDS: Heparin 5,000 UNITS/ML VIAL SC SCH (09:03)
[2017-07-23] MEDS: Insulin NPH/Reg Insulin Hm 300 UNITS/3 ML VIAL SC SCH (09:03)
--- NOTE | 2017-07-23 15:53 | DIS ---
DATE OF ADMISSION: 07/12/2017 DATE OF DISCHARGE: 07/23/2017 DISCHARGE DISPOSITION: Home. FOLLOWUP: 1. Follow up with primary care physician at [facility] in 1 week. 2. Follow up with Dr. Torres, Gastroenterology; Cardiology, Dr. Garcia; and Nephrology, Dr. Gama gunn as directed. 3. Follow up with Cardiovascular, Dr. Seth, as an outpatient. ALLERGIES: Patient denies any drug allergies. The patient was seen and examined on the day of discharge. Denies any new complaints. No chest pain , shortness of breath, palpitations reported. DISCHARGE MEDICATIONS: Aspirin 81 mg daily, Lipitor 40 mg at bedtime, calcium with vitamin D 1 table t b.i.d., Questran 4 grams b.i.d., clonidine 0.2 mg b.i.d., Plavix 75 mg daily, hydralazine 50 mg b.i .d., Novolin 70-30 40 units b.i.d., lisinopril 40 mg daily, Toprol-XL 100 mg b.i.d., Procardia-XL 60 mg b.i.d., Florastor 250 mg b.i.d. for the next 1 week, Aldactazide 25/25 daily. INPATIENT CONSULTANTS: Nephrology, Dr. Louis; Gastroenterology, Dr. Torres; Cardiovascular, Dr. Vane goodman; Cardiology, Dr. Bo Garcia; and Pulmonary, Dr. Patricia. BRIEF HOSPITAL COURSE: Patient is a 62-year-old female with diabetes mellitus, type 2; hypertension; morbid obesity; and hyperlipidemia; who presented to the hospital with generalized weakness with jackie phoresis and diarrhea. Please refer to the history and physical dated 07/12/2017 for further details . The patient was admitted to the hospital with a diagnosis of sepsis with hypovolemic shock. A CT sca n of the abdomen was consistent with colitis. She was started on antibiotics along with aggressive I V fluid hydration. Her white blood cell count has gradually improved. Her diarrhea has more or less resolved. She will continue Questran per Gastroenterology recommendation. She was advised to follo w up with Gastroenterology as outpatient if she continues to have diarrhea. The patient was also found to have abnormal cardiac enzymes with maximum troponin of 3.4 with CK-MB o f 36.1. She underwent cardiac catheterization by Dr. Monreal that was consistent with 3-vessel diseas e. The patient was evaluated by Cardiovascular, Dr. Paul Seth. She is at very high risk of comp lications from coronary artery bypass grafting due to morbid obesity, deconditioning, and need to use her arms to support her weight to walk. She was advised to follow up with Dr. Seht as outpatient. Aggressive lifestyle modification was emphasized. The patient was also found to have acute kidney injury with maximum creatinine 2.5 on admission that has improved to 1.1 on the day of discharge. She also had metabolic acidosis on admission with lacti c acid of 9.0 on admission that improved with IV hydration. She has been cleared by consultants for discharge. FINAL DIAGNOSES: 1. Severe sepsis/septic shock with acute organ dysfunction. 2. Hypovolemic shock. 3. Lactic acidosis/metabolic acidosis. 4. Non-ST elevation myocardial infarction. 5. Colitis, presumed infectious on admission. 6. Electrolyte imbalance, including hypomagnesemia. 7. Diabetes mellitus, type 2. 8. Morbid obesity with a BMI 51.2. 9. History of hypertension. 10. Acute kidney injury on chronic kidney disease, stage 2. 11. Suspected urinary tract infection on admission. Please note that urine cultures were not sent o n admission. 12. Hyponatremia. Plan of care was discussed with the patient. She stated understanding. DIAGNOSTIC TESTS: 1. Stool workup was essentially negative except for elevated lactoferrin. C. diff was negative. 2. Blood cultures were normal. 3. Echocardiogram showed left ventricular ejection fraction of 65%-70% with mild tricuspid regurgita tion. Total time coordinating the discharge of this patient was 33 minutes.
--- NOTE | 2017-07-24 12:50 | PRG ---
DATE OF SERVICE: 07/22/2017 SUBJECTIVE: Ms. Foote's diarrhea is much better. She is without complaints. PHYSICAL EXAMINATION: VITAL SIGNS: Temperature 98, pulse 67, blood pressure 157/68. ABDOMEN: Soft, nontender. She is morbidly obese. She is sitting in a chair. LABORATORY STUDIES: White count 8, hemoglobin 11, platelet count 425. Stool cultures, normal jennifer. ASSESSMENT: 1. Severe colitis with bleeding, sepsis, acute renal failure, resolved, etiology unclear. 2. Persistent diarrhea after the patient improved. This has resolved now after stopping the antibiotics and placing her on a probiotic. RECOMMENDATIONS: I think she can go home at this time. She seems to be much better.
== END 2017-07-23 11:40 | disposition home or self-care (01) | DRG 871 ==
LOC: ERS 20:09 → CCU 22:00 → 2NO 07-14 15:16
PROVIDERS: ADMIT Internal Medicine; ATTEND Internal Medicine
PROC: 4A023N7 Measurement of Cardiac Sampling and Pressure, Left Heart, Percutaneous Approach (ICD-10-PCS; principal; 2017-07-17)
PROC: B2111ZZ Fluoroscopy of Multiple Coronary Arteries using Low Osmolar Contrast (ICD-10-PCS; 2017-07-17)
PROC: B2151ZZ Fluoroscopy of Left Heart using Low Osmolar Contrast (ICD-10-PCS; 2017-07-17)
DX: A41.9 Sepsis, unspecified organism (principal); R57.1 Hypovolemic shock; I21.4 Non-ST elevation (NSTEMI) myocardial infarction; R65.21 Severe sepsis with septic shock; E87.2 Acidosis; Z68.43 Body mass index [BMI] 50.0-59.9, adult; E87.1 Hypo-osmolality and hyponatremia; N17.9 Acute kidney failure, unspecified; N39.0 Urinary tract infection, site not specified; K52.9 Noninfective gastroenteritis and colitis, unspecified; E83.42 Hypomagnesemia; E66.01 Morbid (severe) obesity due to excess calories; I12.9 Hypertensive chronic kidney disease with stage 1 through stage 4 chronic kidney disease, or unspecified chronic kidney disease; N18.2 Chronic kidney disease, stage 2 (mild); I25.10 Atherosclerotic heart disease of native coronary artery without angina pectoris; I87.8 Other specified disorders of veins; E11.65 Type 2 diabetes mellitus with hyperglycemia; L89.892 Pressure ulcer of other site, stage 2; E78.5 Hyperlipidemia, unspecified; K62.89 Other specified diseases of anus and rectum; E11.22 Type 2 diabetes mellitus with diabetic chronic kidney disease; I16.0 Hypertensive urgency
CPT/HCPCS: 36415; 36416; 36556; 51702; 71010; 74176; 80048; 80053; 80069; 80202; 81003; 81015; 82274; 82306; 82553; 82805; 83605; 83630; 83690; 83735; 83880; 83970; 84484; 85025; 85379; 85610; 85730; 87015; 87040; 87045; 87046; 87324; 87328; 87329; 87449; 87899; 93005; 93306; 93458; 93571; 93798; 96361; 96365; 96367; 96368; 96372; 96375; 99152; 99153; A4216; C1760; C1769; G8978-GP-CL; G8979-GP-CJ; J0153; J0360; J1644; J1650; J1956; J2250; J2543; J3010; J3370; J3475; J7050; J7070

== ENCOUNTER 2018-06-24 09:58 | Inpatient (IN) | payer SELFPAY ==
[2018-06-24 10:33] LABS: #Eosinphils 0.1 thou/uL (0.0-0.7); #Lymphocytes 1.5 thou/uL (1.20-3.40); #Monocytes 0.6 thou/uL (0.11-0.59); #Neutrophils 4.8 thou/uL (1.40-6.50); %Basophils 0.4 % (0.0-1.0); %Eosinophils 1.1 % (0.0-10.0); %Lymphocytes 21.2 % (21.0-51.0); %Monocytes 8.5 % (0.0-10.0); %Neutrophils 68.8 % (42.0-75.0); Hemoglobin 14.7 g/dL (12.0-16.0); Mean Corpuscular HGB CONC 31.9 g/dL (32.0-36.0); Mean Corpuscular Hemoglobin 28.2 pg (27.0-31.0); Mean Corpuscular Volume 88.2 fL (78.0-98.0); Mean Platelet Volume 9.4 fL (7.4-10.4); Platelet Count 299 thou/uL (130-400); RBC Distribution Width 13.2 % (11.5-14.5); Red Blood Cell (RBC) Count 5.21 mill/uL (4.20-5.40)
--- NOTE | 2018-06-24 10:58 | RAD ---
CHEST 1 VIEW: Date: 06/24/18 INDICATION: History of headache and dizziness. FINDINGS: Lungs are clear. Cardiomediastinal silhouette is within normal limits. There are moderate mitral arthur lar calcifications. No acute osseous abnormality is noted. IMPRESSION: No acute cardiopulmonary abnormality demonstrated. Examination is not appreciably changed from the sd mparison. The previously seen left-sided subclavian central venous catheter is no longer present. POS: NARAYAN
[2018-06-24 11:04] LABS: ALT (SGPT) 19 U/L (8-55); AST (SGOT) 16 U/L (5-34); Albumin 4.1 g/dL (3.4-4.8); Alkaline Phosphatase 83 U/L (40-150); Anion Gap 15 mmol/L (10-20); BUN (Urea Nitrogen) 59 mg/dL (9.8-20.1); Bilirubin, Total 0.8 mg/dL (0.2-1.2); Calc. Creatinine Clearance 0 mL/min (70-130); Calcium 10.2 mg/dL (7.8-10.44); Carbon Dioxide 28 mmol/L (23-31); Chloride 95 mmol/L (98-107); Estimated GFR-MDRD 18; Globulin 3.7 g/dL (2.4-3.5); Glucose 350 mg/dL (80-115); Potassium 4.5 mmol/L (3.5-5.1); Protein, Total 7.8 g/dL (6.0-8.3); Sodium 133 mmol/L (136-145)
[2018-06-24 11:09] LABS: Troponin I 0.015 ng/mL (< 0.028)
--- NOTE | 2018-06-24 14:29 | HP ---
PRIMARY CARE PROVIDER: [facility]. REASON FOR COMPLAINT: Referred to [facility] by [facility]. HISTORY OF PRESENT ILLNESS: The patient awoke this morning, felt weak, some lightheaded. She has an appointment at [facility]. She went to the bathroom, continued to feel weak and lightheaded and eventually went to the doctor's office where blood pressure was checked it was approximately 80/60. She was sent to [place] by EMS. She also noticed her blood sugar was elevated in the 500 range. Vision was blurry. She had no trouble with speech. She had no fainting. She did have a mild press ure headache that is improved. She has noticed a lot of urination lately which she relates to a new medication for blood pressure, chlorthalidone. PAST MEDICAL HISTORY: Pertinent for diabetes mellitus with chronic kidney disease, insulin-dependent for 20 years, hypertension, coronary artery disease. She had an TN about 1 year ago, 3-vessel. She is a heavy woman and she was told she needs to lose weight before she had a bypass. She has lost so mewhere in the vicinity of 70 pounds. She has elevated cholesterol. PAST SURGICAL HISTORY: Fractured humerus on the right, 35 years ago. D&C. She had symptomatic gall stone in the past and had a cholecystostomy with removal of the stone and no gallbladder removal. CURRENT MEDICATIONS: Plavix 75 mg a day, atorvastatin 40 mg a day, chlorthalidone 25 mg a day, nifed ipine XL 60 mg a day, clonidine patch has been discontinued. Hydralazine has been discontinued, meto prolol 100 mg once a day extended release, lisinopril 40 mg a day, Novolin 70/30, 35 units subcu a.m. and p.m. ALLERGIES: No known drug allergies. FAMILY HISTORY: Both mother and father had hypertension, diabetes, and heart disease. No one had co ronary artery disease she is aware of. SOCIAL HISTORY: She is , FULL CODE status. next of kin at bedside. She has no medic al directive. She has not smoked or drinks alcohol. REVIEW OF SYSTEMS: General: She had pressure headache this morning. It has now gone. Otherwise, l ightheaded this morning with no actual fainting, but felt like near syncope. Eyes: Blurry this morn ing. No double vision, flashing lights. Ear, nose and throat: No ear pain or drainage. No nasal b leeding. No trouble swallowing. Cardiac: No chest pain, orthopnea or paroxysmal nocturnal dyspnea. Respirations: No cough, wheezing or asthma. Gastrointestinal: She has a history of soft stools o ccasionally. No ifeanyi watery diarrhea, no constipation, no abdominal pain, nausea or vomiting. Gris tourinary: She has been urinating more recently. No pain. No blood. Musculoskeletal: Some swelli ng in her legs. No pain in her muscles or joints, uses a walker to get around. Neurologic: No stro kes, seizures or focal weakness. Psychiatric: No anxiety, depression. Skin: No bruises, bleeding or rash. Heme/lymph: No tender or swollen lymph nodes in axilla, inguinal, or cervical area. PHYSICAL EXAMINATION: VITAL SIGNS: Blood pressure currently is 130/71, pulse 52, respirations 22, temperature 97.8. HEENT: Reveal pupils equal, round, and reactive to light. Extraocular movements are intact. Sclera e white. Tympanic membranes clear. Nose clear. Throat clear. NECK: Supple, without jugular venous distention, adenopathy or thyromegaly. CHEST: Clear to auscultation and percussion. HEART: Regular rate and rhythm. First and second heart sounds are clear. There are no appreciated murmurs or gallops. ABDOMEN: Soft, bowel sounds are normal. There is no hepatosplenomegaly, no mass, no rebound, no bru its. EXTREMITIES: Reveal no cyanosis, clubbing or edema. SKIN: Warm and dry without bruises or rash. HEME/LYMPH: No tender or swollen lymph nodes in the axilla, inguinal, or cervical area. PULSES: Carotid, radial, femoral, and dorsalis pedis pulses intact and symmetric. NEUROLOGICAL: Cranial nerves II-XII are intact. Deep tendon reflexes diminished. Moves all extremi ties. PSYCHIATRIC: Alert, oriented and cooperative. LABORATORY AND X-RAY FINDINGS: EKG: Regular sinus rhythm, no acute ST-T abnormality. She has inver kim T waves in AVF and 1 chronic reviewed by me. CBC is normal. Chemistry: Sodium 133, potassium 4 .5, BUN 50, creatinine 2.63, blood sugar 350, 398. Liver function tests now normal, troponin normal. ADMITTING DIAGNOSES: 1. Acute kidney injury. 2. Dizziness with near syncope. 3. Diabetes mellitus type 2, insulin-dependent, uncontrolled. 4. Hypotension. 5. Coronary artery disease. 6. History of hypertension, on medicines. PLAN: 1. Discontinue chlorthalidone and JAKE inhibitor for now. 2. IV saline at 100. 3. Serial basic metabolic profile. 4. Accu-Chek sliding scale. Continue long-acting insulin. 5. Reevaluate in the morning.
[2018-06-24 15:42] VITALS: BMI 42.2
[2018-06-24] MEDS ORDERED: HYDROcodone/Acetaminophen 5/325 mg Tablet PO PRN (15:47)
[2018-06-24] MEDS ORDERED: Dextrose 50% Abboject 50 ML SYRINGE SLOW IVP PRN (15:47)
[2018-06-24] MEDS ORDERED: Zolpidem Tartrate 5 MG TAB PO PRN (15:47)
[2018-06-24] MEDS ORDERED: HumaLOG 300 UNITS/3 ML VIAL SC PRN (15:47)
[2018-06-24] MEDS ORDERED: Ondansetron ODT 4 MG TAB PO PRN (15:47)
[2018-06-24] MEDS ORDERED: Acetaminophen 325 MG TAB PO PRN (15:47)
[2018-06-24] MEDS ORDERED: Dextrose 5% in Water 1,000 ML IV PRN (15:47)
[2018-06-24] MEDS: hydrALAZINE 25 MG TAB PO SCH (16:45)
[2018-06-24] MEDS: Sodium Chloride 0.9% 1,000 ML IV SCH (16:46)
[2018-06-24] MEDS: cloNIDine 0.2 MG TAB PO SCH (20:40)
[2018-06-24] MEDS: Atorvastatin Calcium 40 MG TAB PO SCH (20:40)
[2018-06-24] MEDS: Insulin NPH/Reg Insulin Hm 300 UNITS/3 ML VIAL SC SCH (20:40)
[2018-06-25] MEDS: Sodium Chloride 0.9% 1,000 ML IV SCH ×3 (02:41→20:59)
[2018-06-25 04:27] LABS: Anion Gap 9 mmol/L (10-20); BUN (Urea Nitrogen) 57 mg/dL (9.8-20.1); Calc. Creatinine Clearance 65 mL/min (70-130); Carbon Dioxide 28 mmol/L (23-31); Chloride 104 mmol/L (98-107); Estimated GFR-MDRD 26; Potassium 3.6 mmol/L (3.5-5.1); Sodium 137 mmol/L (136-145)
[2018-06-25 04:34] LABS: Glucose 55 mg/dL (80-115)
[2018-06-25] MEDS: hydrALAZINE 25 MG TAB PO SCH ×2 (08:01→16:11)
[2018-06-25] MEDS: Saccharomyces boulardii 250 MG CAP PO SCH (08:01)
[2018-06-25] MEDS: Calcium Carbonate + Vit D 1 TAB PO SCH (08:01)
[2018-06-25] MEDS: NIFEdipine XL 60 MG TAB PO SCH (08:01)
[2018-06-25] MEDS: Aspirin 81 mg Enteric Coated Tablet PO SCH (08:02)
[2018-06-25] MEDS: Clopidogrel Bisulfate 75 MG TAB PO SCH (08:02)
[2018-06-25] MEDS: cloNIDine 0.2 MG TAB PO SCH ×2 (08:02→20:58)
--- NOTE | 2018-06-25 08:37 | PDOC.PN ---
- Subjective Encounter Start Date: 06/25/18 Encounter Start Time: 08:33 Subjective: dizziness resolved - Objective Resuscitation Status: Resuscitation Status FULL:Full Resuscitation MAR Reviewed: Yes Vital Signs & Weight: Vital Signs (12 hours) Temp Pulse Resp BP BP Pulse Ox 06/25/18 08:02 151/83 H 06/25/18 08:01 53 L 150/84 H 06/25/18 07:34 97.4 F L 53 L 18 150/84 H 100 06/25/18 04:00 97.8 F 56 L 16 112/62 100 06/24/18 20:40 151/83 H Weight Weight 302 lb 8 oz I&O: 06/24/18 06/25/18 06/26/18 06:59 06:59 06:59 Intake Total 1919 Balance 1919 Result Diagrams: 06/24/18 10:25 06/25/18 03:41 Additional Labs: Accuchecks 06/25/18 06/25/18 06/24/18 05:44 03:52 20:40 POC Glucose 110 55 L* 150 H 06/24/18 06/24/18 16:07 10:19 POC Glucose 163 H 394 H Phys Exam - Physical Examination Neck: no JVD Respiratory: clear to auscultation bilateral Cardiovascular: RRR, no significant murmur Gastrointestinal: soft, positive bowel sounds Musculoskeletal: no edema Dx/Plan (1) Hypotension Status: Acute Qualifiers: Hypotension type: unspecified hypotension type Qualified Code(s): I95.9 - Hypotension, unspecified (2) Acute renal failure superimposed on chronic kidney disease Code(s): N17.9 - ACUTE KIDNEY FAILURE, UNSPECIFIED; N18.9 - CHRONIC KIDNEY DISEASE, UNSPECIFIED Status: Acute Qualifiers: Chronic kidney disease stage: stage 3 (moderate) (3) DM type 2 causing CKD stage 3 Code(s): E11.22 - TYPE 2 DIABETES MELLITUS W DIABETIC CHRONIC KIDNEY DISEASE; N18.3 - CHRONIC KIDNEY DISEASE, STAGE 3 (MODERATE) Status: Chronic Qualifiers: Diabetes mellitus snf insulin use: with long term acute care registered nurse use Qualified Code( s): E11.22 - Type 2 diabetes mellitus with diabetic chronic kidney disease; N18.3 - Chronic kidney disease, stage 3 (moderate); Z79.4 - petroleum terminal plant operator (current) use of insulin (4) CAD (coronary artery disease) Code(s): I25.10 - ATHSCL HEART DISEASE OF [place] CORONARY ARTERY W/O ANG PCTRS Status: Chronic Qualifiers: Coronary Disease-Associated Artery/Lesion type: [place] artery [place] vs. transplanted heart: [place] heart Associated angina: without angina Qualified Code(s): I25.10 - Atherosclerotic heart disease of [place] coronary artery without angina pectoris - Plan cont off chlorthalidone,JAKE -: cont accu/ss/insulin, etc * .
[2018-06-25] MEDS ORDERED: Enoxaparin Sodium 40 MG/0.4 ML SYRINGE SC SCH (09:00)
[2018-06-25] MEDS: Insulin NPH/Reg Insulin Hm 300 UNITS/3 ML VIAL SC SCH ×2 (11:01→21:00)
[2018-06-25] MEDS: Atorvastatin Calcium 40 MG TAB PO SCH (20:58)
[2018-06-26 04:57] LABS: Anion Gap 8 mmol/L (10-20); BUN (Urea Nitrogen) 46 mg/dL (9.8-20.1); Calc. Creatinine Clearance 84 mL/min (70-130); Calcium 8.9 mg/dL (7.8-10.44); Carbon Dioxide 27 mmol/L (23-31); Chloride 106 mmol/L (98-107); Estimated GFR-MDRD 35; Glucose 65 mg/dL (80-115); Sodium 137 mmol/L (136-145)
[2018-06-26] MEDS: Sodium Chloride 0.9% 1,000 ML IV SCH ×2 (05:38→14:18)
[2018-06-26] MEDS ORDERED: Senokot S 8.6-50 MG TAB PO PRN (07:25)
[2018-06-26] MEDS ORDERED: Sodium Chloride 0.65% Nasal 44 ML BOT EA NARE PRN (07:25)
[2018-06-26] MEDS ORDERED: Artificial Tears 18 DROP/0.9 ML EA EYE PRN (07:25)
[2018-06-26] MEDS ORDERED: hydrALAZINE 20 MG/ML VIAL SLOW IVP PRN (07:25)
[2018-06-26] MEDS ORDERED: Eucerin (Mineral Oil/Petrolatum,White) 30 gm Jar TOP PRN (07:25)
[2018-06-26] MEDS ORDERED: Loratadine 10 MG TAB PO PRN (07:25)
[2018-06-26] MEDS ORDERED: Loperamide HCl 2 MG CAP PO PRN (07:25)
[2018-06-26] MEDS ORDERED: Diabetic Tussin 200 MG/10 ML UDCUP PO PRN (07:25)
[2018-06-26] MEDS ORDERED: Ondansetron HCl/PF 4 MG/2 ML Vial IVP PRN (07:25)
[2018-06-26] MEDS ORDERED: Acetaminophen 500 MG TAB PO PRN (07:25)
[2018-06-26] MEDS: Enoxaparin Sodium 30 MG/0.3 ML SYRINGE SC SCH (08:43)
[2018-06-26] MEDS: Calcium Carbonate + Vit D 1 TAB PO SCH (08:44)
[2018-06-26] MEDS: Clopidogrel Bisulfate 75 MG TAB PO SCH (08:44)
[2018-06-26] MEDS: Saccharomyces boulardii 250 MG CAP PO SCH (08:44)
[2018-06-26] MEDS: Aspirin 81 mg Enteric Coated Tablet PO SCH (08:44)
[2018-06-26] MEDS: cloNIDine 0.2 MG TAB PO SCH ×2 (08:45→20:10)
[2018-06-26] MEDS: hydrALAZINE 25 MG TAB PO SCH ×2 (08:45→19:06)
[2018-06-26] MEDS: NIFEdipine XL 60 MG TAB PO SCH (08:46)
[2018-06-26] MEDS: Insulin NPH/Reg Insulin Hm 300 UNITS/3 ML VIAL SC SCH ×2 (08:50→20:11)
--- NOTE | 2018-06-26 10:16 | PDOC.PN ---
- Subjective Encounter Start Date: 06/26/18 Encounter Start Time: 08:00 -: old records requested/rev Patient seen and examined. No new complaints. No overnight events - Objective Resuscitation Status: Resuscitation Status FULL:Full Resuscitation MAR Reviewed: Yes Vital Signs & Weight: Vital Signs (12 hours) Temp Pulse Resp BP BP Pulse Ox 06/26/18 08:46 58 L 122/73 06/26/18 08:45 58 L 122/73 06/26/18 07:42 97.5 F L 58 L 18 127/75 98 Weight Weight 302 lb 8 oz I&O: 06/25/18 06/26/18 06/27/18 06:59 06:59 06:59 Intake Total 1920 970 Balance 1920 970 Result Diagrams: 06/24/18 10:25 06/26/18 04:02 Additional Labs: Accuchecks 06/26/18 06/26/18 06/25/18 08:50 05:14 20:41 POC Glucose 163 H 73 222 H 06/25/18 06/25/18 15:45 11:26 POC Glucose 139 H 141 H Phys Exam - Physical Examination Constitutional: NAD HEENT: PERRLA, moist MMs, sclera anicteric Neck: no JVD, supple Respiratory: no wheezing, no rales, no rhonchi Cardiovascular: RRR, no significant murmur, no rub Gastrointestinal: soft, non-tender, no distention, positive bowel sounds Musculoskeletal: no edema, pulses present Neurological: non-focal, normal sensation, moves all 4 limbs Lymphatic: no nodes Psychiatric: normal affect, A&O x 3 Skin: no rash, normal turgor Dx/Plan (1) Acute worsening of stage 3 chronic kidney disease Code(s): N18.3 - CHRONIC KIDNEY DISEASE, STAGE 3 (MODERATE) Status: Acute Comment: improving (2) Hypotension Status: Resolved Qualifiers: Hypotension type: unspecified hypotension type Qualified Code(s): I95.9 - Hypotension, unspecified (3) CAD (coronary artery disease) Code(s): I25.10 - ATHSCL HEART DISEASE OF [place] CORONARY ARTERY W/O ANG PCTRS Status: Chronic Qualifiers: Coronary Disease-Associated Artery/Lesion type: [place] artery [place] vs. transplanted heart: [place] heart Associated angina: without angina Qualified Code(s): I25.10 - Atherosclerotic heart disease of [place] coronary artery without angina pectoris (4) DM type 2 causing CKD stage 3 Code(s): E11.22 - TYPE 2 DIABETES MELLITUS W DIABETIC CHRONIC KIDNEY DISEASE; N18.3 - CHRONIC KIDNEY DISEASE, STAGE 3 (MODERATE) Status: Chronic Qualifiers: Diabetes mellitus marine oil terminal superintendent insulin use: with marine oil terminal superintendent use Qualified Code( s): E11.22 - Type 2 diabetes mellitus with diabetic chronic kidney disease; N18.3 - Chronic kidney disease, stage 3 (moderate); Z79.4 - termite helper (current) use of insulin (5) Diabetes mellitus type 2 in obese Code(s): E11.69 - TYPE 2 DIABETES MELLITUS WITH OTHER SPECIFIED COMPLICATION; E66.9 - OBESITY, UNSPECIFIED Status: Chronic (6) Dyslipidemia Code(s): E78.5 - HYPERLIPIDEMIA, UNSPECIFIED Status: Chronic (7) HTN (hypertension) Code(s): I10 - ESSENTIAL (PRIMARY) HYPERTENSION Status: Chronic (8) Morbid obesity with BMI of 40.0-44.9, adult Code(s): E66.01 - MORBID (SEVERE) OBESITY DUE TO EXCESS CALORIES; Z68.41 - BODY MASS INDEX (BMI) 40.0-44.9, ADULT Status: Chronic - Plan cont current plan of care * continue IVF * adjust medication today * expecting discharge tomorrow * medication reviewed as below * symptomatic treatment. Review of Systems - Review of Systems ENT: negative: Ear Pain, Ear Discharge, Nose Pain, Nose Discharge, Nose Congestion, Mouth Pain, Mouth Swelling, Throat Pain, Throat Swelling, Other Respiratory: negative: Cough, Dry, Shortness of Breath, Hemoptysis, SOB with Excertion, Pleuritic Pain, Sputum, Wheezing Cardiovascular: negative: chest pain, palpitations, orthopnea, paroxysmal nocturnal dyspnea, edema, light headedness, other Gastrointestinal: negative: Nausea, Vomiting, Abdominal Pain, Diarrhea, Constipation, Melena, Hematochezia, Other Genitourinary: negative: Dysuria, Frequency, Incontinence, Hematuria, Retention , Other Musculoskeletal: negative: Neck Pain, Shoulder Pain, Arm Pain, Back Pain, Hand Pain, Leg Pain, Foot Pain, Other Skin: negative: Rash, Lesions, Nino, Bruising, Other - Medications/Allergies Allergies/Adverse Reactions: Allergies Allergy/AdvReac Type Severity Reaction Status Date / Time No Known Allergies Allergy Verified 06/24/18 15:38 Medications: Current Medications Acetaminophen (Tylenol) 1,000 mg PO Q6H PRN PRN Reason: Mild Pain (1-3) Hydrocodone Bitart/Acetaminophen ([place] 5/325) 1 tab PO Q4H PRN PRN Reason: Moderate Pain (4-6) Artificial Tears (Tears Naturale) 2 drop EA EYE PRN PRN PRN Reason: Dry Eyes Aspirin (Ecotrin) 81 mg PO DAILY [facility] Last Admin: 06/26/18 08:44 Dose: 81 mg Atorvastatin Calcium (Lipitor) 40 mg PO HS [facility] Last Admin: 06/25/18 20:58 Dose: 40 mg Calcium/Vitamin D (Caltrate 600 + Vit D) 1 tab PO DAILY [facility] Last Admin: 06/26/18 08:44 Dose: 1 tab Clonidine (Catapres) 0.2 mg PO BID [facility] Last Admin: 06/26/18 08:45 Dose: 0.2 mg Clopidogrel Bisulfate (Plavix) 75 mg PO DAILY [facility] Last Admin: 06/26/18 08:44 Dose: 75 mg Dextrose/Water (Dextrose 50%) 25 gm SLOW IVP PRN PRN PRN Reason: Hypoglycemia Enoxaparin Sodium (Lovenox) 30 mg SC 0900 [facility] Last Admin: 06/26/18 08:43 Dose: 30 mg Glucagon (Glucagon) 1 mg IM PRN PRN PRN Reason: Hypoglycemia Guaifenesin (Robitussin Sf) 200 mg PO Q4H PRN PRN Reason: Cough Hydralazine HCl (Apresoline) 50 mg PO BID-AC [facility] Last Admin: 06/26/18 08:45 Dose: 50 mg Hydralazine HCl (Apresoline) 10 mg SLOW IVP Q4H PRN PRN Reason: SBP > 180 and HR < 70 Dextrose/Water (D5w) 1,000 mls @ 0 mls/hr IV .Q0M PRN PRN Reason: Hypoglycemia Sodium Chloride (Normal Saline 0.9%) 1,000 mls @ 100 mls/hr IV .Q10H [facility] Last Admin: 06/26/18 05:38 Dose: Not Given Insulin Human Isoph/Insulin Regular (Humulin 70/30) 35 units SC BID [facility] Last Admin: 06/26/18 08:50 Dose: 35 unit Insulin Human Lispro (Humalog) 0 units SC .MODERATE SLIDING SC PRN PRN Reason: Moderate [place] [employer] Last Admin: 06/25/18 21:01 Dose: 4 unit Loperamide HCl (Imodium) 2 mg PO PRN PRN PRN Reason: Diarrhea/Loose Stools Loratadine (Claritin) 10 mg PO DAILYPRN PRN PRN Reason: Sinus Symptoms Metoprolol Succinate (Toprol Xl) 100 mg PO BID [facility] Last Admin: 06/26/18 08:45 Dose: 100 mg Mineral Oil/White Petrolatum (Eucerin Cream) 0 gm TOP BIDPRN PRN PRN Reason: Dry Skin Nifedipine (Procardia Xl) 60 mg PO DAILY [facility] Last Admin: 06/26/18 08:46 Dose: 60 mg Ondansetron HCl (Zofran Odt) 4 mg PO Q6H PRN PRN Reason: Nausea/Vomiting Ondansetron HCl (Zofran) 4 mg IVP Q6H PRN PRN Reason: Nausea/Vomiting Saccharomyces Boulardii (Florastor) 250 mg PO DAILY [facility] Last Admin: 06/26/18 08:44 Dose: 250 mg Senna/Docusate Sodium (Senokot S) 2 tab PO BID PRN PRN Reason: Constipation Sodium Chloride ([place] Nasal [place] 0.65%) 0 ml EA NARE QIDPRN PRN PRN Reason: Nasal Congestion Zolpidem Tartrate (Ambien) 5 mg PO HSPRN PRN PRN Reason: Insomnia
[2018-06-26] MEDS: Atorvastatin Calcium 40 MG TAB PO SCH (20:10)
[2018-06-27] MEDS: Sodium Chloride 0.9% 1,000 ML IV SCH (03:04)
[2018-06-27 07:34] LABS: Anion Gap 8 mmol/L (10-20); BUN (Urea Nitrogen) 37 mg/dL (9.8-20.1); Calc. Creatinine Clearance 96 mL/min (70-130); Calcium 9.3 mg/dL (7.8-10.44); Carbon Dioxide 28 mmol/L (23-31); Chloride 105 mmol/L (98-107); Estimated GFR-MDRD 41; Glucose 124 mg/dL (80-115); Potassium 4.4 mmol/L (3.5-5.1); Sodium 137 mmol/L (136-145)
[2018-06-27 07:38] VITALS: BP 145/80; TEMP 97.4
[2018-06-27] MEDS: Calcium Carbonate + Vit D 1 TAB PO SCH (08:43)
[2018-06-27] MEDS: hydrALAZINE 25 MG TAB PO SCH (08:43)
[2018-06-27] MEDS: Saccharomyces boulardii 250 MG CAP PO SCH (08:44)
[2018-06-27] MEDS: NIFEdipine XL 60 MG TAB PO SCH (08:44)
[2018-06-27] MEDS: Aspirin 81 mg Enteric Coated Tablet PO SCH (08:44)
[2018-06-27] MEDS: Clopidogrel Bisulfate 75 MG TAB PO SCH (08:44)
[2018-06-27] MEDS: cloNIDine 0.2 MG TAB PO SCH (08:44)
[2018-06-27] MEDS: Enoxaparin Sodium 30 MG/0.3 ML SYRINGE SC SCH (08:47)
[2018-06-27] MEDS: Insulin NPH/Reg Insulin Hm 300 UNITS/3 ML VIAL SC SCH (08:51)
--- NOTE | 2018-06-27 09:35 | DIS ---
DATE OF ADMISSION: 06/24/2018 DATE OF DISCHARGE: 06/27/2018 PRIMARY CARE PHYSICIAN: [facility]. DISCHARGE DISPOSITION: Home. PRIMARY DISCHARGE DIAGNOSES: Acute kidney failure, baseline chronic kidney disease stage 3, hypotens ion resolved, labile blood sugar control. SECONDARY DISCHARGE DIAGNOSES: Coronary artery disease, chronic kidney disease stage 3, diabetes typ e 2, morbid obesity with body mass index 42, hypertension, dyslipidemia. PRIMARY PROCEDURE/OPERATION: None. RADIOLOGICAL INVESTIGATION: Chest x-ray normal. SIGNIFICANT LABORATORY DATA: WBC 7.0, hemoglobin 14.7, platelet 299. BMP; sodium 137, potassium 4.4 , BUN 37, creatinine 1.32, calcium 9.3. DISCHARGE MEDICATIONS: Calcium with vitamin D one tablet p.o. daily, clonidine 0.2 mg p.o. b.i.d., h ydralazine 50 mg p.o. b.i.d., NPH insulin 35 units subcu b.i.d., lisinopril 40 mg p.o. daily, Procard ia-XL 60 mg p.o. daily, Florastor 250 mg p.o. daily, aspirin 81 mg p.o. daily, Lipitor 40 mg p.o. at bedtime, Plavix 75 mg p.o. daily, Toprol-XL 100 mg p.o. b.i.d. CONTRAINDICATIONS: None. CODE STATUS: FULL CODE. INPATIENT CONSULTANTS: None. ALLERGIES: No known drug allergy. DISCHARGE PLAN: Post hospital, patient will follow up with [facility]. Patient is given jitendra tran education about her blood pressure medication adjustment, blood pressure recording, diary and follo w up with primary care physician for adjustment in her diabetes as well as blood pressure medication. The patient is also advised to keep checking blood sugar monitor and keep diary. HOSPITAL COURSE: A 63-year-old female who was sent from [facility] because the patient wa s hypotensive. She was feeling dizziness and lightheadedness. Patient was found with labile blood s ugar as well as labile blood pressure. She was initially hypotensive. We kept on hold all blood pre ssure medications. Patient's creatinine on admission 2.63. She was given IV fluid and her creatinin e improved to 1.32. We had discussion with the patient about diabetes control as well as blood pressure control and keep record of all parameters at home as well as to hold blood pressure medication if blood pressure systo lic less than 130/80. Patient expressed understanding about medication adjustment. At this point, we are not making any ch levi in her previous medication, but that will be done by her primary care physician based on her blo od pressure record at home. The patient is seen and examined at bedside today. PHYSICAL EXAMINATION: VITAL SIGNS: Currently, temperature 97.4, pulse 54, blood pressure 145/80, weight 302 pounds. GENERAL: The patient is currently alert, awake, no obvious acute distress. HEAD: Normocephalic, atraumatic. LUNGS: Clear to auscultation without any rhonchi or rales. CARDIAC: S1, S2 regular without any murmur. ABDOMEN: Soft, morbid obesity limiting examination. EXTREMITIES: No edema. NEUROLOGIC: Nonfocal examination. REVIEW OF SYSTEMS: Reviewed and negative. This patient is at risk for recurrent admission.
== END 2018-06-27 10:55 | disposition home or self-care (01) | DRG 683 ==
LOC: ERS 09:58 → T4-A 13:56
PROVIDERS: ADMIT Internal Medicine; ATTEND Internal Medicine
DX: N17.9 Acute kidney failure, unspecified (principal); Z68.41 Body mass index [BMI] 40.0-44.9, adult; E11.65 Type 2 diabetes mellitus with hyperglycemia; N18.3 Chronic kidney disease, stage 3 (moderate); I12.9 Hypertensive chronic kidney disease with stage 1 through stage 4 chronic kidney disease, or unspecified chronic kidney disease; E11.22 Type 2 diabetes mellitus with diabetic chronic kidney disease; I95.9 Hypotension, unspecified; E78.5 Hyperlipidemia, unspecified; I25.10 Atherosclerotic heart disease of native coronary artery without angina pectoris; E66.01 Morbid (severe) obesity due to excess calories; Z79.02 Long term (current) use of antithrombotics/antiplatelets; Z79.899 Other long term (current) drug therapy
CPT/HCPCS: 36415; 36416; 71045; 80048; 80053; 84484; 85025; 90471; 90686; 93005; 96360; 96361; G0008; J1650

== ENCOUNTER 2018-11-04 10:40 | Emergency (ER) | payer SELFPAY ==
[2018-11-04 11:43] LABS: #Eosinphils 0.1 thou/uL (0.0-0.7); #Lymphocytes 1.1 thou/uL (1.20-3.40); #Monocytes 0.6 thou/uL (0.11-0.59); #Neutrophils 5.9 thou/uL (1.40-6.50); %Basophils 0.1 % (0.0-1.0); %Eosinophils 1.2 % (0.0-10.0); %Lymphocytes 14.6 % (21.0-51.0); %Monocytes 7.5 % (0.0-10.0); %Neutrophils 76.6 % (42.0-75.0); Hemoglobin 13.3 g/dL (12.0-16.0); Mean Corpuscular HGB CONC 32.3 g/dL (32.0-36.0); Mean Corpuscular Hemoglobin 28.4 pg (27.0-31.0); Mean Corpuscular Volume 87.9 fL (78.0-98.0); Mean Platelet Volume 8.7 fL (7.4-10.4); Platelet Count 272 thou/uL (130-400); RBC Distribution Width 12.9 % (11.5-14.5); Red Blood Cell (RBC) Count 4.68 mill/uL (4.20-5.40); White Blood Cell (WBC) Count 7.7 thou/uL (4.8-10.8)
[2018-11-04 12:07] LABS: ALT (SGPT) 17 U/L (8-55); AST (SGOT) 18 U/L (5-34); Albumin 3.7 g/dL (3.4-4.8); Alkaline Phosphatase 89 U/L (40-150); Anion Gap 12 mmol/L (10-20); BUN (Urea Nitrogen) 41 mg/dL (9.8-20.1); Bilirubin, Total 0.5 mg/dL (0.2-1.2); Calc. Creatinine Clearance 0 mL/min (70-130); Calcium 9.7 mg/dL (7.8-10.44); Carbon Dioxide 28 mmol/L (23-31); Chloride 99 mmol/L (98-107); Estimated GFR-MDRD 25; Globulin 3.3 g/dL (2.4-3.5); Glucose 113 mg/dL (80-115); Potassium 4.4 mmol/L (3.5-5.1); Sodium 135 mmol/L (136-145)
== END 2018-11-04 14:45 | disposition home or self-care (01) ==
LOC: ERS 10:40
DX: I95.9 Hypotension, unspecified (principal); E11.9 Type 2 diabetes mellitus without complications; E78.5 Hyperlipidemia, unspecified; I10 Essential (primary) hypertension
CPT/HCPCS: 36415; 80053; 84484; 85025; 93005

== ENCOUNTER 2021-06-14 21:53 | Inpatient (IN) | payer MEDICARE ==
[2021-06-14] MEDS ORDERED: Hydrocortisone Sod Succ/PF 100 mg/2 ml Vial ONE (22:33)
[2021-06-14] MEDS ORDERED: Cefepime 2 GM VIAL ONE (22:40)
[2021-06-14] MEDS ORDERED: DOPamine 400 MG/D5W 250 ML 250 ML ONE (22:40)
[2021-06-14 22:53] LABS: Calc. Creatinine Clearance 0 mL/min (70-130)
[2021-06-14 23:20] LABS: #Eosinphils 0.1 thou/uL (0.0-0.7); #Lymphocytes 0.5 thou/uL (1.20-3.40); #Monocytes 0.5 thou/uL (0.11-0.59); #Neutrophils 4.5 thou/uL (1.40-6.50); %Eosinophils 1.1 % (0.0-10.0); %Lymphocytes 9.7 % (21.0-51.0); %Monocytes 8.4 % (0.0-10.0); %Neutrophils 80.8 % (42.0-75.0); Hemoglobin 9.5 g/dL (12.0-16.0); Mean Corpuscular HGB CONC 30.8 g/dL (32.0-36.0); Mean Corpuscular Volume 90.9 fL (78.0-98.0); Mean Platelet Volume 10.3 fL (7.4-10.4); Platelet Count 164 thou/uL (130-400); RBC Distribution Width 20.4 % (11.5-14.5); White Blood Cell (WBC) Count 5.6 thou/uL (4.8-10.8)
[2021-06-14] MEDS ORDERED: Vancomycin 1 GM/200 ML BAG ONE (23:40)
[2021-06-14 23:41] LABS: Sodium 141 mmol/L (136-145)
[2021-06-14 23:45] LABS: Chloride 104 mmol/L (98-107); Potassium 5.8 mmol/L (3.5-5.1)
[2021-06-14] MEDS ORDERED: [UNRECOGNIZED DRUG - OTHER] IVPB SCH (23:45)
[2021-06-14] MEDS ORDERED: LEVOTHYROXINE SODIUM IVPB SCH (23:45)
[2021-06-14 23:46] LABS: Anion Gap 11 mmol/L (10-20); Carbon Dioxide 32 mmol/L (23-31)
[2021-06-14 23:47] LABS: BUN (Urea Nitrogen) 79 mg/dL (9.8-20.1)
[2021-06-14 23:48] LABS: Bilirubin, Total 0.4 mg/dL (0.2-1.2); Calcium 9.4 mg/dL (7.8-10.44); Glucose 69 mg/dL (80-115)
[2021-06-14 23:49] LABS: Protein, Total 6.3 g/dL (5.8-8.1)
[2021-06-14 23:50] LABS: Globulin 3.3 g/dL (2.4-3.5)
[2021-06-14 23:53] LABS: AST (SGOT) 25 U/L (5-34); Alkaline Phosphatase 73 U/L (40-110)
[2021-06-14 23:54] LABS: ALT (SGPT) 32 U/L (8-55); Magnesium 4.2 mg/dL (1.6-2.6)
[2021-06-15 01:08] LABS: SARS-CoV-2 NAA Rapid Test DETECTED (NotDetected)
[2021-06-15 02:57] LABS: Bilirubin Negative (Negative); Blood, Urine Negative (Negative); Clarity Clear (Clear); Glucose, Urine (Dipstick) Normal (Negative); Ketone, Urine Negative (Negative); Leukocyte Negative Leu/uL (Negative); Nitrite Negative (Negative); Protein, Urine (Dipstick) Negative (Neg-Trace); Urobilinogen Normal mg/dL (Less than 2)
[2021-06-15] MEDS ORDERED: DOPamine 400 MG/D5W 250 ML 250 ML ONE (02:59)
[2021-06-15] MEDS ORDERED: Acetaminophen 325 MG TAB PO PRN (03:04)
[2021-06-15] MEDS ORDERED: Ondansetron PF 4 MG/2 ML Vial IVP PRN (03:04)
[2021-06-15] MEDS ORDERED: Dextrose 5% in Water 1,000 ML IV PRN (03:18)
[2021-06-15] MEDS ORDERED: Dextrose 50% Abboject 50 ML SYRINGE SLOW IVP PRN (03:18)
[2021-06-15] MEDS ORDERED: Furosemide 40 MG/4 ML VIAL SLOW IVP SCH (04:30)
[2021-06-15] MEDS: DOPamine 400 MG/D5W 250 ML 250 ML IVPB SCH ×2 (06:14→15:55)
[2021-06-15 07:36] LABS: #Lymphocytes 0.5 thou/uL (1.20-3.40); #Monocytes 0.4 thou/uL (0.11-0.59); #Neutrophils 10.5 thou/uL (1.40-6.50); %Eosinophils 0.1 % (0.0-10.0); %Lymphocytes 4.6 % (21.0-51.0); %Monocytes 3.1 % (0.0-10.0); %Neutrophils 92.1 % (42.0-75.0); Mean Corpuscular HGB CONC 30.1 g/dL (32.0-36.0); Mean Corpuscular Hemoglobin 26.9 pg (27.0-31.0); Mean Corpuscular Volume 89.5 fL (78.0-98.0); Mean Platelet Volume 9.8 fL (7.4-10.4); Platelet Count 237 thou/uL (130-400); RBC Distribution Width 20.4 % (11.5-14.5); Red Blood Cell (RBC) Count 4.07 mill/uL (4.20-5.40); White Blood Cell (WBC) Count 11.4 thou/uL (4.8-10.8)
[2021-06-15 07:59] LABS: Albumin 3.4 g/dL (3.4-4.8)
[2021-06-15 08:01] LABS: Glucose 142 mg/dL (80-115)
[2021-06-15 08:02] LABS: Globulin 3.3 g/dL (2.4-3.5)
[2021-06-15 08:03] LABS: Carbon Dioxide 30 mmol/L (23-31)
[2021-06-15 08:04] LABS: Alkaline Phosphatase 90 U/L (40-110)
[2021-06-15 08:05] LABS: Calc. Creatinine Clearance 74 mL/min (70-130)
[2021-06-15 08:06] LABS: BUN (Urea Nitrogen) 81 mg/dL (9.8-20.1)
[2021-06-15 08:07] LABS: ALT (SGPT) 38 U/L (8-55); AST (SGOT) 27 U/L (5-34); Magnesium 4.1 mg/dL (1.6-2.6)
[2021-06-15] MEDS: Dexamethasone 10 MG/ML VIAL SLOW IVP SCH (09:02)
[2021-06-15 10:10] LABS: Sodium 138 mmol/L (136-145)
[2021-06-15 10:11] LABS: Bilirubin, Total 0.7 mg/dL (0.2-1.2); Calcium 9.2 mg/dL (7.8-10.44); Chloride 102 mmol/L (98-107); Protein, Total 6.7 g/dL (5.8-8.1)
[2021-06-15 10:12] LABS: Anion Gap 12 mmol/L (10-20)
[2021-06-15] MEDS ORDERED: FLU VACC QS2021-22(65YR UP)/PF 240 MCG/0.7 ML SYRINGE IM ONE (12:00)
[2021-06-15] MEDS ORDERED: Dextrose 50% Abboject 50 ML SYRINGE SLOW IVP SCH (12:01)
[2021-06-15] MEDS ORDERED: Insulin Regular 300 UNITS/3 ML VIAL IVP SCH (12:30)
[2021-06-15] MEDS ORDERED: Furosemide 100 MG/10 ML VIAL SLOW IVP SCH ×2 (14:00)
[2021-06-15] MEDS: Furosemide 40 MG/4 ML VIAL SLOW IVP SCH (14:49)
[2021-06-15 19:23] LABS: Anion Gap 12 mmol/L (10-20); BUN (Urea Nitrogen) 82 mg/dL (9.8-20.1); Calc. Creatinine Clearance 75 mL/min (70-130); Calcium 9.1 mg/dL (7.8-10.44); Carbon Dioxide 31 mmol/L (23-31); Chloride 102 mmol/L (98-107); Glucose 129 mg/dL (80-115); Potassium 5.9 mmol/L (3.5-5.1); Sodium 139 mmol/L (136-145)
[2021-06-15] MEDS ORDERED: Sodium Chloride 0.9% 1,000 ML IV SCH (22:00)
[2021-06-15 22:40] LABS: Magnesium 3.9 mg/dL (1.6-2.6)
[2021-06-16] MEDS: DOPamine 400 MG/D5W 250 ML 250 ML IVPB SCH ×2 (03:01→17:42)
[2021-06-16 05:11] LABS: #Lymphocytes 0.6 thou/uL (1.20-3.40); #Monocytes 0.2 thou/uL (0.11-0.59); #Neutrophils 9.7 thou/uL (1.40-6.50); %Basophils 0.1 % (0.0-1.0); %Eosinophils 0.1 % (0.0-10.0); %Lymphocytes 5.6 % (21.0-51.0); %Monocytes 1.9 % (0.0-10.0); %Neutrophils 92.4 % (42.0-75.0); Mean Corpuscular HGB CONC 30.8 g/dL (32.0-36.0); Mean Corpuscular Hemoglobin 27.6 pg (27.0-31.0); Mean Corpuscular Volume 89.6 fL (78.0-98.0); Mean Platelet Volume 9.7 fL (7.4-10.4); Platelet Count 207 thou/uL (130-400); RBC Distribution Width 20.8 % (11.5-14.5); Red Blood Cell (RBC) Count 3.62 mill/uL (4.20-5.40); White Blood Cell (WBC) Count 10.5 thou/uL (4.8-10.8)
[2021-06-16] MEDS: Furosemide 40 MG/4 ML VIAL SLOW IVP SCH ×2 (05:26→14:00)
[2021-06-16 05:41] LABS: Phosphorus 5.2 mg/dL (2.3-4.7)
[2021-06-16 05:57] LABS: ALT (SGPT) 31 U/L (8-55); AST (SGOT) 22 U/L (5-34); Albumin 3.2 g/dL (3.4-4.8); Alkaline Phosphatase 81 U/L (40-110); Anion Gap 12 mmol/L (10-20); BUN (Urea Nitrogen) 80 mg/dL (9.8-20.1); Bilirubin, Total 0.5 mg/dL (0.2-1.2); Calc. Creatinine Clearance 75 mL/min (70-130); Carbon Dioxide 32 mmol/L (23-31); Chloride 102 mmol/L (98-107); Globulin 3.1 g/dL (2.4-3.5); Glucose 156 mg/dL (80-115); Magnesium 3.9 mg/dL (1.6-2.6); Potassium 5.7 mmol/L (3.5-5.1); Protein, Total 6.3 g/dL (5.8-8.1); Sodium 140 mmol/L (136-145)
[2021-06-16] MEDS ORDERED: Levothyroxine Sodium 100 MCG TAB PO SCH (06:00)
[2021-06-16] MEDS: Dexamethasone 10 MG/ML VIAL SLOW IVP SCH (08:19)
[2021-06-16] MEDS: Heparin 5,000 UNITS/ML VIAL SC SCH ×2 (08:19→15:12)
[2021-06-16] MEDS ORDERED: Dextrose 50% Abboject 50 ML SYRINGE SLOW IVP SCH (09:15)
[2021-06-16] MEDS ORDERED: Insulin Regular 300 UNITS/3 ML VIAL IVP SCH (09:15)
[2021-06-16] MEDS: Sodium Chloride 0.9% 1,000 ML IV SCH ×2 (10:22→20:20)
[2021-06-16 12:38] LABS: Anion Gap 13 mmol/L (10-20); BUN (Urea Nitrogen) 78 mg/dL (9.8-20.1); Calc. Creatinine Clearance 76 mL/min (70-130); Calcium 8.8 mg/dL (7.8-10.44); Carbon Dioxide 30 mmol/L (23-31); Chloride 102 mmol/L (98-107); Glucose 193 mg/dL (80-115); Potassium 5.1 mmol/L (3.5-5.1); Sodium 140 mmol/L (136-145)
[2021-06-16] MEDS: LOKELMA 10 GM PACKET PO SCH ×2 (15:12→20:20)
[2021-06-16] MEDS ORDERED: Polyethylene Glycol 3350 17 GM Packet PO PRN (16:52)
[2021-06-16] MEDS ORDERED: Insulin Regular 300 UNITS/3 ML VIAL SC PRN (17:04)
[2021-06-16] MEDS: Insulin Regular 300 UNITS/3 ML VIAL SC PRN ×2 (17:38→20:30)
[2021-06-16] MEDS: Enoxaparin Sodium 40 MG/0.4 ML SYRINGE SC SCH (20:20)
[2021-06-17 04:30] LABS: #Lymphocytes 0.3 thou/uL (1.20-3.40); #Monocytes 0.3 thou/uL (0.11-0.59); #Neutrophils 5.4 thou/uL (1.40-6.50); %Eosinophils 0.1 % (0.0-10.0); %Lymphocytes 5.5 % (21.0-51.0); %Monocytes 5.2 % (0.0-10.0); %Neutrophils 89.3 % (42.0-75.0); Hemoglobin 9.1 g/dL (12.0-16.0); Mean Corpuscular HGB CONC 29.5 g/dL (32.0-36.0); Mean Corpuscular Hemoglobin 26.6 pg (27.0-31.0); Mean Corpuscular Volume 90.3 fL (78.0-98.0); Mean Platelet Volume 9.8 fL (7.4-10.4); Platelet Count 166 thou/uL (130-400); RBC Distribution Width 20.7 % (11.5-14.5); Red Blood Cell (RBC) Count 3.43 mill/uL (4.20-5.40); White Blood Cell (WBC) Count 6.1 thou/uL (4.8-10.8)
[2021-06-17 04:56] LABS: ALT (SGPT) 42 U/L (8-55); AST (SGOT) 27 U/L (5-34); Albumin 3.2 g/dL (3.4-4.8); Alkaline Phosphatase 77 U/L (40-110); BUN (Urea Nitrogen) 76 mg/dL (9.8-20.1); Bilirubin, Total 0.4 mg/dL (0.2-1.2); CRP (Inflammatory) 2.96 mg/dL (= or < 0.5); Calc. Creatinine Clearance 84 mL/min (70-130); Calcium 8.4 mg/dL (7.8-10.44); Carbon Dioxide 32 mmol/L (23-31); Chloride 101 mmol/L (98-107); Glucose 259 mg/dL (80-115); Magnesium 3.3 mg/dL (1.6-2.6); Potassium 4.1 mmol/L (3.5-5.1); Protein, Total 6.2 g/dL (5.8-8.1); Sodium 140 mmol/L (136-145)
[2021-06-17 05:12] LABS: Anion Gap 11 mmol/L (10-20)
[2021-06-17] MEDS: Furosemide 40 MG/4 ML VIAL SLOW IVP SCH ×2 (05:57→14:13)
[2021-06-17] MEDS: Levothyroxine Sodium 50 MCG TAB PO SCH (05:57)
[2021-06-17] MEDS: Insulin Regular 300 UNITS/3 ML VIAL SC PRN ×5 (05:57→20:41)
[2021-06-17] MEDS: Sodium Chloride 0.9% 1,000 ML IV SCH ×2 (06:09→16:22)
[2021-06-17] MEDS: Enoxaparin Sodium 40 MG/0.4 ML SYRINGE SC SCH ×2 (08:50→20:36)
[2021-06-17] MEDS ORDERED: LOKELMA 10 GM PACKET PO SCH (11:15)
[2021-06-17] MEDS: LOKELMA 10 GM PACKET PO SCH (11:42)
[2021-06-17] MEDS ORDERED: Atropine Sulfate 1 mg/1 ml Vial IVP PRN (18:16)
[2021-06-17] MEDS: Polyethylene Glycol 3350 17 GM Packet PO SCH (20:36)
[2021-06-17] MEDS: Senokot S 8.6-50 MG TAB PO SCH (20:36)
[2021-06-17] MEDS: NPH, Human Insulin Isophane 300 UNIT/3 ML VIAL SC SCH (20:37)
[2021-06-18] MEDS: Sodium Chloride 0.9% 1,000 ML IV SCH (01:20)
[2021-06-18 04:49] LABS: #Lymphocytes 0.5 thou/uL (1.20-3.40); #Monocytes 0.6 thou/uL (0.11-0.59); #Neutrophils 6.4 thou/uL (1.40-6.50); %Basophils 0.1 % (0.0-1.0); %Eosinophils 0.1 % (0.0-10.0); %Monocytes 7.9 % (0.0-10.0); %Neutrophils 84.9 % (42.0-75.0); Hemoglobin 8.9 g/dL (12.0-16.0); Mean Corpuscular HGB CONC 30.7 g/dL (32.0-36.0); Mean Corpuscular Hemoglobin 27.5 pg (27.0-31.0); Mean Corpuscular Volume 89.6 fL (78.0-98.0); Mean Platelet Volume 9.8 fL (7.4-10.4); Platelet Count 159 thou/uL (130-400); RBC Distribution Width 20.7 % (11.5-14.5); Red Blood Cell (RBC) Count 3.22 mill/uL (4.20-5.40); White Blood Cell (WBC) Count 7.5 thou/uL (4.8-10.8)
[2021-06-18 05:05] LABS: ALT (SGPT) 38 U/L (8-55); AST (SGOT) 22 U/L (5-34); Albumin 3.2 g/dL (3.4-4.8); Alkaline Phosphatase 70 U/L (40-110); Anion Gap 11 mmol/L (10-20); BUN (Urea Nitrogen) 78 mg/dL (9.8-20.1); Bilirubin, Total 0.5 mg/dL (0.2-1.2); Calc. Creatinine Clearance 89 mL/min (70-130); Calcium 8.3 mg/dL (7.8-10.44); Carbon Dioxide 33 mmol/L (23-31); Chloride 102 mmol/L (98-107); Glucose 212 mg/dL (80-115); Magnesium 3.1 mg/dL (1.6-2.6); Phosphorus 3.8 mg/dL (2.3-4.7); Potassium 3.4 mmol/L (3.5-5.1); Protein, Total 6.2 g/dL (5.8-8.1); Sodium 143 mmol/L (136-145)
[2021-06-18] MEDS: Furosemide 40 MG/4 ML VIAL SLOW IVP SCH ×2 (05:32→13:48)
[2021-06-18] MEDS: Levothyroxine Sodium 50 MCG TAB PO SCH (05:32)
[2021-06-18] MEDS: Insulin Regular 300 UNITS/3 ML VIAL SC PRN ×2 (05:39→11:08)
[2021-06-18 06:14] VITALS: BMI 66.2
[2021-06-18] MEDS: Enoxaparin Sodium 40 MG/0.4 ML SYRINGE SC SCH ×2 (07:40→21:30)
[2021-06-18] MEDS: Senokot S 8.6-50 MG TAB PO SCH ×2 (07:40→21:30)
[2021-06-18] MEDS: NPH, Human Insulin Isophane 300 UNIT/3 ML VIAL SC SCH ×2 (07:41→21:31)
[2021-06-18] MEDS ORDERED: Potassium Chloride 20 MEQ TAB PO SCH ×2 (08:30→17:00)
[2021-06-18] MEDS: Aspirin 325 mg Enteric Coated Tablet PO SCH (10:30)
[2021-06-18 14:28] LABS: Creatinine, Urine 56.72 mg/dL (47-110)
[2021-06-18] MEDS: Polyethylene Glycol 3350 17 GM Packet PO SCH (21:30)
[2021-06-18] MEDS: AcetaZOLAMIDE 250 MG TAB PO SCH (21:31)
[2021-06-19] MEDS: Levothyroxine Sodium 50 MCG TAB PO SCH (05:06)
[2021-06-19] MEDS: Furosemide 40 MG/4 ML VIAL SLOW IVP SCH ×2 (05:06→13:43)
[2021-06-19 05:24] LABS: #Eosinphils 0.2 thou/uL (0.0-0.7); #Lymphocytes 0.7 thou/uL (1.20-3.40); #Monocytes 0.6 thou/uL (0.11-0.59); #Neutrophils 4.3 thou/uL (1.40-6.50); %Basophils 0.2 % (0.0-1.0); %Eosinophils 3.2 % (0.0-10.0); %Lymphocytes 12.3 % (21.0-51.0); %Monocytes 10.8 % (0.0-10.0); %Neutrophils 73.5 % (42.0-75.0); Hemoglobin 8.4 g/dL (12.0-16.0); Mean Corpuscular HGB CONC 29.8 g/dL (32.0-36.0); Mean Corpuscular Hemoglobin 26.8 pg (27.0-31.0); Mean Corpuscular Volume 90.1 fL (78.0-98.0); Mean Platelet Volume 9.8 fL (7.4-10.4); Platelet Count 134 thou/uL (130-400); RBC Distribution Width 20.7 % (11.5-14.5); Red Blood Cell (RBC) Count 3.11 mill/uL (4.20-5.40); White Blood Cell (WBC) Count 5.8 thou/uL (4.8-10.8)
[2021-06-19 06:53] LABS: Anion Gap 10 mmol/L (10-20); BUN (Urea Nitrogen) 73 mg/dL (9.8-20.1); BUN/Creatinine Ratio 42.69; Calc. Creatinine Clearance 94 mL/min (70-130); Calcium 8.5 mg/dL (7.8-10.44); Carbon Dioxide 33 mmol/L (23-31); Chloride 101 mmol/L (98-107); Glucose 107 mg/dL (80-115); Magnesium 2.8 mg/dL (1.6-2.6); Phosphorus 2.9 mg/dL (2.3-4.7); Potassium 3.3 mmol/L (3.5-5.1); Sodium 141 mmol/L (136-145)
[2021-06-19] MEDS ORDERED: Electrolyte Replacement Protocol 1 EACH FS SCH (08:00)
[2021-06-19] MEDS ORDERED: Potassium Chloride 20 MEQ TAB PO SCH ×2 (08:00→17:00)
[2021-06-19] MEDS: AcetaZOLAMIDE 250 MG TAB PO SCH ×2 (09:14→20:37)
[2021-06-19] MEDS: Aspirin 325 mg Enteric Coated Tablet PO SCH (09:14)
[2021-06-19] MEDS: Metolazone 5 MG TAB PO SCH (09:14)
[2021-06-19] MEDS: Senokot S 8.6-50 MG TAB PO SCH ×2 (09:14→20:36)
[2021-06-19] MEDS: NPH, Human Insulin Isophane 300 UNIT/3 ML VIAL SC SCH (09:15)
[2021-06-19] MEDS: Enoxaparin Sodium 40 MG/0.4 ML SYRINGE SC SCH ×2 (09:15→20:37)
[2021-06-19] MEDS: Atorvastatin Calcium 40 MG TAB PO SCH (20:36)
[2021-06-19] MEDS: Polyethylene Glycol 3350 17 GM Packet PO SCH (20:38)
[2021-06-20 05:13] LABS: #Eosinphils 0.2 thou/uL (0.0-0.7); #Lymphocytes 0.6 thou/uL (1.20-3.40); #Monocytes 0.6 thou/uL (0.11-0.59); #Neutrophils 3.4 thou/uL (1.40-6.50); %Eosinophils 4.1 % (0.0-10.0); %Monocytes 12.5 % (0.0-10.0); %Neutrophils 70.4 % (42.0-75.0); Hemoglobin 8.4 g/dL (12.0-16.0); Mean Corpuscular Hemoglobin 27.3 pg (27.0-31.0); Mean Corpuscular Volume 88.3 fL (78.0-98.0); Mean Platelet Volume 10.3 fL (7.4-10.4); Platelet Count 135 thou/uL (130-400); RBC Distribution Width 20.9 % (11.5-14.5); Red Blood Cell (RBC) Count 3.08 mill/uL (4.20-5.40); White Blood Cell (WBC) Count 4.8 thou/uL (4.8-10.8)
[2021-06-20] MEDS: Furosemide 40 MG/4 ML VIAL SLOW IVP SCH ×2 (05:23→17:53)
[2021-06-20] MEDS: Levothyroxine Sodium 75 MCG TAB PO SCH (05:24)
[2021-06-20 05:42] LABS: Albumin 2.9 g/dL (3.4-4.8); BUN (Urea Nitrogen) 73 mg/dL (9.8-20.1); BUN/Creatinine Ratio 37.06; Calc. Creatinine Clearance 79 mL/min (70-130); Calcium 8.5 mg/dL (7.8-10.44); Carbon Dioxide 34 mmol/L (23-31); Chloride 100 mmol/L (98-107); Glucose 159 mg/dL (80-115); Magnesium 2.7 mg/dL (1.6-2.6); Potassium 4.2 mmol/L (3.5-5.1); Sodium 141 mmol/L (136-145)
[2021-06-20 06:31] LABS: Anion Gap 11 mmol/L (10-20)
[2021-06-20] MEDS: Enoxaparin Sodium 40 MG/0.4 ML SYRINGE SC SCH ×2 (08:08→21:22)
[2021-06-20] MEDS: Senokot S 8.6-50 MG TAB PO SCH ×2 (08:25→21:34)
[2021-06-20] MEDS: AcetaZOLAMIDE 250 MG TAB PO SCH ×2 (08:48→21:22)
[2021-06-20] MEDS: Metolazone 5 MG TAB PO SCH (08:48)
[2021-06-20 13:14] LABS: Albumin-Ur 65.6 % (.); Alpha 1 - Ur 1.5 % (.); Beta-Ur 7.9 % (.); M-Spike,% Not Observed % (Not Observed); Protein, Urine 12.3 mg/dL (Not Estab.)
[2021-06-20] MEDS ORDERED: Gentamicin 80 MG/2 ML VIAL ONE (14:01)
[2021-06-20] MEDS ORDERED: Lidocaine 1% (PF) 30 ML VIAL ONE (14:01)
[2021-06-20] MEDS ORDERED: CEFAZOLIN 1 GM VIAL ONE (14:01)
[2021-06-20] MEDS ORDERED: ceFAZolin 2 GM/DEX 5% 100 ML BAG ONE (14:02)
[2021-06-20] MEDS ORDERED: Fentanyl 100 MCG/2 ML VIAL ONE (14:15)
[2021-06-20] MEDS ORDERED: Lidocaine 1% PF 5 ML VIAL ONE (14:32)
[2021-06-20] MEDS ORDERED: PROPOFOL 200 MG/20 ML VIAL ONE (14:32)
[2021-06-20 16:14] LABS: Kappa Lambda Light Chain Ratio 3.34 (0.26-1.65); Kappa Light Chains 75.4 mg/L (3.3-19.4); Lambda Light Chain 22.6 mg/L (5.7-26.3)
[2021-06-20] MEDS ORDERED: Ondansetron HCl/PF 4 MG/2 ML Vial IVP PRN (16:27)
[2021-06-20] MEDS ORDERED: Promethazine HCl 25 MG/ML VIAL IM PRN (16:27)
[2021-06-20] MEDS ORDERED: Promethazine HCl 25 MG/ML VIAL IVPB PRN (16:27)
[2021-06-20] MEDS: Aspirin 325 mg Enteric Coated Tablet PO SCH (17:28)
[2021-06-20] MEDS ORDERED: Acetaminophen/Codeine 30-300mg Tablet PO PRN ×2 (19:00→19:03)
[2021-06-20] MEDS: Atorvastatin Calcium 40 MG TAB PO SCH (21:22)
[2021-06-20] MEDS: NPH, Human Insulin Isophane 300 UNIT/3 ML VIAL SC SCH (21:23)
[2021-06-20] MEDS: Polyethylene Glycol 3350 17 GM Packet PO SCH (21:34)
[2021-06-20] MEDS: ceFAZolin Sodium/D5W 2 GM in Premix Bag 1 BAG IVPB SCH (22:00)
[2021-06-21] MEDS: Furosemide 40 MG/4 ML VIAL SLOW IVP SCH ×3 (04:49→16:35)
[2021-06-21] MEDS: Levothyroxine Sodium 75 MCG TAB PO SCH (04:49)
[2021-06-21] MEDS: ceFAZolin Sodium/D5W 2 GM in Premix Bag 1 BAG IVPB SCH (04:57)
[2021-06-21 05:54] LABS: Anion Gap 12 mmol/L (10-20); BUN (Urea Nitrogen) 68 mg/dL (9.8-20.1); Calc. Creatinine Clearance 81 mL/min (70-130); Calcium 9.2 mg/dL (7.8-10.44); Carbon Dioxide 35 mmol/L (23-31); Chloride 97 mmol/L (98-107); Glucose 144 mg/dL (80-115); Magnesium 2.5 mg/dL (1.6-2.6); Phosphorus 3.2 mg/dL (2.3-4.7); Potassium 4.2 mmol/L (3.5-5.1); Sodium 140 mmol/L (136-145)
[2021-06-21 06:03] LABS: #Eosinphils 0.3 thou/uL (0.0-0.7); #Lymphocytes 0.6 thou/uL (1.20-3.40); #Monocytes 0.5 thou/uL (0.11-0.59); #Neutrophils 3.6 thou/uL (1.40-6.50); %Lymphocytes 12.5 % (21.0-51.0); %Monocytes 9.8 % (0.0-10.0); %Neutrophils 71.7 % (42.0-75.0); Hemoglobin 8.6 g/dL (12.0-16.0); Mean Corpuscular HGB CONC 30.8 g/dL (32.0-36.0); Mean Corpuscular Hemoglobin 27.3 pg (27.0-31.0); Mean Corpuscular Volume 88.7 fL (78.0-98.0); Mean Platelet Volume 10.2 fL (7.4-10.4); Platelet Count 130 thou/uL (130-400); RBC Distribution Width 20.4 % (11.5-14.5); Red Blood Cell (RBC) Count 3.15 mill/uL (4.20-5.40); White Blood Cell (WBC) Count 5.1 thou/uL (4.8-10.8)
[2021-06-21] MEDS: Insulin Regular 300 UNITS/3 ML VIAL SC PRN (06:28)
[2021-06-21 08:16] LABS: A/G Ratio 1.1 (0.7-1.7); Alpha 1 0.2 g/dL (0.0-0.4); Alpha 2 0.7 g/dL (0.4-1.0); Beta 0.9 g/dL (0.7-1.3); Globulin, Total 2.8 g/dL (2.2-3.9); M-Spike Not Observed g/dL (Not Observed)
[2021-06-21] MEDS: AcetaZOLAMIDE 250 MG TAB PO SCH ×2 (09:14→20:13)
[2021-06-21] MEDS: Senokot S 8.6-50 MG TAB PO SCH ×2 (09:14→20:14)
[2021-06-21] MEDS: NPH, Human Insulin Isophane 300 UNIT/3 ML VIAL SC SCH ×2 (09:14→20:13)
[2021-06-21] MEDS: Enoxaparin Sodium 40 MG/0.4 ML SYRINGE SC SCH ×2 (09:14→20:13)
[2021-06-21] MEDS: Aspirin 325 mg Enteric Coated Tablet PO SCH (09:14)
[2021-06-21] MEDS: Metolazone 5 MG TAB PO SCH (09:15)
[2021-06-21] MEDS: Cephalexin 250 MG CAP PO SCH ×2 (13:34→20:13)
[2021-06-21] MEDS: Atorvastatin Calcium 40 MG TAB PO SCH (20:13)
[2021-06-21] MEDS: Polyethylene Glycol 3350 17 GM Packet PO SCH (20:14)
[2021-06-22] MEDS: Cephalexin 250 MG CAP PO SCH ×2 (04:10→08:17)
[2021-06-22 05:16] LABS: Anion Gap 14 mmol/L (10-20); BUN (Urea Nitrogen) 72 mg/dL (9.8-20.1); Calc. Creatinine Clearance 67 mL/min (70-130); Calcium 9.3 mg/dL (7.8-10.44); Carbon Dioxide 34 mmol/L (23-31); Chloride 94 mmol/L (98-107); Glucose 170 mg/dL (80-115); Magnesium 2.2 mg/dL (1.6-2.6); Sodium 138 mmol/L (136-145)
[2021-06-22 05:33] LABS: Anisocytosis MODERATE=16-30 cells (100X) (0-5/hpf); Band 1 % (5-11); Burr Cells SLIGHT = 2-5 cells (100X) (0-1/hpf); Elliptocytes SLIGHT = 2-5 cells (100X) (0-1/hpf); Eosinophils 8 % (0-10); Hemoglobin 8.4 g/dL (12.0-16.0); Lymphocytes 19 % (21-51); MDiff Complete? YES; Mean Corpuscular HGB CONC 31.8 g/dL (32.0-36.0); Mean Corpuscular Volume 87.9 fL (78.0-98.0); Mean Platelet Volume 10.4 fL (7.4-10.4); Monocytes 6 % (0-10); Neutrophil 65 % (42-75); Ovalocytes SLIGHT = 2-5 cells (100X) (0-1/hpf); Platelet Count 135 thou/uL (130-400); Platelet Morphology Comment Appears Adequate; Polychromasia SLIGHT = 2-3 cells (100X) (0-2/hpf); RBC Distribution Width 20.4 % (11.5-14.5); Reactive Lymphocytes 1 % (0-10); Red Blood Cell (RBC) Count 3.01 mill/uL (4.20-5.40); Tear Drops SLIGHT = 2-5 cells (100X) (0-1/hpf)
[2021-06-22] MEDS: Levothyroxine Sodium 75 MCG TAB PO SCH (05:56)
[2021-06-22] MEDS: Furosemide 40 MG/4 ML VIAL SLOW IVP SCH (05:56)
[2021-06-22] MEDS ORDERED: Carvedilol 6.25 MG TAB PO SCH (08:00)
[2021-06-22] MEDS: Senokot S 8.6-50 MG TAB PO SCH (08:14)
[2021-06-22] MEDS: NPH, Human Insulin Isophane 300 UNIT/3 ML VIAL SC SCH (08:14)
[2021-06-22] MEDS: Enoxaparin Sodium 40 MG/0.4 ML SYRINGE SC SCH (08:14)
[2021-06-22] MEDS: Aspirin 325 mg Enteric Coated Tablet PO SCH (08:15)
[2021-06-22] MEDS: AcetaZOLAMIDE 250 MG TAB PO SCH (08:15)
[2021-06-22 11:50] VITALS: BP 121/53; TEMP 99.1
[2021-06-24] MEDS ORDERED: Apixaban 5 MG TAB PO SCH (09:00)
== END 2021-06-22 12:50 | DRG 242 ==
LOC: ERS 21:53 → CCU 06-15 01:42 → 2NO 06-18 14:13
PROVIDERS: ADMIT Internal Medicine; ATTEND Internal Medicine
PROC: 0JH606Z Insertion of Pacemaker, Dual Chamber into Chest Subcutaneous Tissue and Fascia, Open Approach (ICD-10-PCS; principal; 2021-06-20)
PROC: 02H63JZ Insertion of Pacemaker Lead into Right Atrium, Percutaneous Approach (ICD-10-PCS; 2021-06-20)
PROC: 02HK3JZ Insertion of Pacemaker Lead into Right Ventricle, Percutaneous Approach (ICD-10-PCS; 2021-06-20)
DX: I49.5 Sick sinus syndrome (principal); J96.01 Acute respiratory failure with hypoxia; U07.1 COVID-19; G93.41 Metabolic encephalopathy; I50.31 Acute diastolic (congestive) heart failure; I13.0 Hypertensive heart and chronic kidney disease with heart failure and stage 1 through stage 4 chronic kidney disease, or unspecified chronic kidney disease; N17.9 Acute kidney failure, unspecified; Z68.43 Body mass index [BMI] 50.0-59.9, adult; N39.0 Urinary tract infection, site not specified; N18.4 Chronic kidney disease, stage 4 (severe); E87.3 Alkalosis; E03.9 Hypothyroidism, unspecified; E78.5 Hyperlipidemia, unspecified; I25.10 Atherosclerotic heart disease of native coronary artery without angina pectoris; E11.22 Type 2 diabetes mellitus with diabetic chronic kidney disease; G47.33 Obstructive sleep apnea (adult) (pediatric); E66.01 Morbid (severe) obesity due to excess calories; K21.9 Gastro-esophageal reflux disease without esophagitis; I48.0 Paroxysmal atrial fibrillation; E83.41 Hypermagnesemia; E87.5 Hyperkalemia; E11.649 Type 2 diabetes mellitus with hypoglycemia without coma; D63.1 Anemia in chronic kidney disease; E83.42 Hypomagnesemia; E83.39 Other disorders of phosphorus metabolism; Z79.4 Long term (current) use of insulin; Z79.82 Long term (current) use of aspirin; Z79.02 Long term (current) use of antithrombotics/antiplatelets; Z90.49 Acquired absence of other specified parts of digestive tract; Z98.890 Other specified postprocedural states
CPT/HCPCS: 33208; 36415; 36416; 71045; 76770; 80048; 80053; 80069; 81003; 82533; 82570; 83605; 83735; 83883; 84100; 84156; 84165; 84166; 84439; 84443; 84481; 85025; 86140; 87040; 87086; 93005; 93306; C1785; C1898; J0690; J0692; J1100; J1265; J1580; J1644; J1650; J1720; J1815; J1940; J2001; J2704; J3010; J3370; J3490; J7050; U0002

== ENCOUNTER 2021-09-17 11:03 | Inpatient (IN) | payer MEDICARE, OTHER ==
[2021-09-17] MEDS ORDERED: Acetaminophen 500 MG TAB ONE (11:30)
[2021-09-17 11:41] LABS: Hemoglobin 10.6 g/dL (12.0-16.0); Mean Corpuscular HGB CONC 31.9 g/dL (32.0-36.0); Mean Corpuscular Hemoglobin 26.1 pg (27.0-31.0); Mean Corpuscular Volume 81.8 fL (78.0-98.0); Mean Platelet Volume 8.3 fL (7.4-10.4); Platelet Count 226 thou/uL (130-400); RBC Distribution Width 16.5 % (11.5-14.5); Red Blood Cell (RBC) Count 4.07 mill/uL (4.20-5.40); White Blood Cell (WBC) Count 13.9 thou/uL (4.8-10.8)
[2021-09-17] MEDS ORDERED: cefTRIAXone\\ROCEPHIN 2 GM VIAL ONE (11:49)
[2021-09-17 11:51] LABS: Bilirubin 1+ (Negative); Blood, Urine Negative (Negative); Clarity Turbid (Clear); Glucose, Urine (Dipstick) Normal (Negative); Ketone, Urine Negative (Negative); Leukocyte Negative Leu/uL (Negative); Nitrite Negative (Negative); Protein, Urine (Dipstick) 20 mg/dL (Neg-Trace); Specific Gravity, Urine 1.023 (1.002-1.036)
[2021-09-17 11:59] LABS: ALT (SGPT) 20 U/L (8-55); AST (SGOT) 29 U/L (5-34); Albumin 2.8 g/dL (3.4-4.8); Alkaline Phosphatase 98 U/L (40-110); Anion Gap 16 mmol/L (10-20); BUN (Urea Nitrogen) 76 mg/dL (9.8-20.1); Bilirubin, Total 0.6 mg/dL (0.2-1.2); Calc. Creatinine Clearance 0 mL/min (70-130); Calcium 9.4 mg/dL (7.8-10.44); Carbon Dioxide 30 mmol/L (23-31); Chloride 93 mmol/L (98-107); Glucose 175 mg/dL (80-115); Potassium 4.8 mmol/L (3.5-5.1); Protein, Total 6.8 g/dL (5.8-8.1); Sodium 134 mmol/L (136-145)
[2021-09-17 12:04] LABS: Band 38 % (5-11); Lymphocytes 5 % (21-51); MDiff Complete? YES; Metamyelocyte 1 % (0-0); Monocytes 5 % (0-10); Neutrophil 50 % (42-75); Platelet Morphology Comment Appears Adequate; Polychromasia SLIGHT = 2-3 cells (100X) (0-2/hpf); Reactive Lymphocytes 1 % (0-10)
[2021-09-17] MEDS ORDERED: Norepinephrine 8 MG/0.9% NS 250 ML ONE (12:23)
[2021-09-17 12:36] LABS: CKMB 1.1 ng/mL (0-6.6)
[2021-09-17 12:41] LABS: SARS-CoV-2 NAA Rapid Test Not Detected (NotDetected)
[2021-09-17] MEDS ORDERED: Azithromycin 500 MG VIAL ONE (12:42)
[2021-09-17] MEDS ORDERED: Enoxaparin Sodium 40 MG/0.4 ML SYRINGE ONE (15:28)
[2021-09-17] MEDS ORDERED: Enoxaparin Sodium 30 MG/0.3 ML SYRINGE ONE (15:28)
[2021-09-17] MEDS ORDERED: Enoxaparin Sodium 80 MG/0.8 ML SYRINGE ONE (15:28)
[2021-09-17 18:12] LABS: Troponin I 0.901 ng/mL (< 0.028)
[2021-09-17] MEDS ORDERED: Norepinephrine 16 MG in Dextrose 5% in Water 234 ML IVPB SCH (18:19)
[2021-09-17] MEDS ORDERED: Dextrose 50% Abboject 50 ML SYRINGE SLOW IVP PRN (18:19)
[2021-09-17] MEDS ORDERED: Dextrose 5% in Water 1,000 ML IV PRN (18:19)
[2021-09-17] MEDS ORDERED: VANCOMYCIN 2 GRAM/400 ML BAG 2 GM in Premix Bag 1 BAG IVPB SCH (18:45)
[2021-09-17 19:25] LABS: Critical Call Chem Troponin I RESULT DECREASING; Troponin I 0.821 ng/mL (< 0.028)
[2021-09-17] MEDS: Sodium Chloride 0.9% 1,000 ML IV SCH (21:58)
[2021-09-17] MEDS: Cefepime 1 GM in Sodium Chloride 0.9% 100 ML IVPB SCH (21:58)
[2021-09-18] MEDS: Acetaminophen 325 MG TAB PO PRN ×2 (06:21→15:46)
[2021-09-18] MEDS: HumaLOG 300 UNITS/3 ML VIAL SC PRN ×5 (06:25→21:31)
[2021-09-18] MEDS: Cefepime 1 GM in Sodium Chloride 0.9% 100 ML IVPB SCH ×2 (07:42→19:55)
[2021-09-18 08:08] LABS: Hemoglobin 9.8 g/dL (12.0-16.0); Mean Corpuscular HGB CONC 32.2 g/dL (32.0-36.0); Mean Corpuscular Volume 83.7 fL (78.0-98.0); Mean Platelet Volume 8.9 fL (7.4-10.4); Platelet Count 177 thou/uL (130-400); RBC Distribution Width 16.3 % (11.5-14.5); Red Blood Cell (RBC) Count 3.64 mill/uL (4.20-5.40); White Blood Cell (WBC) Count 8.1 thou/uL (4.8-10.8)
[2021-09-18 08:15] LABS: Anion Gap 16 mmol/L (10-20); BUN (Urea Nitrogen) 84 mg/dL (9.8-20.1); Calc. Creatinine Clearance 42 mL/min (70-130); Calcium 9.2 mg/dL (7.8-10.44); Carbon Dioxide 26 mmol/L (23-31); Chloride 97 mmol/L (98-107); Glucose 192 mg/dL (80-115); Magnesium 2.1 mg/dL (1.6-2.6); Phosphorus 2.9 mg/dL (2.3-4.7); Potassium 3.9 mmol/L (3.5-5.1); Sodium 135 mmol/L (136-145)
[2021-09-18 08:28] LABS: Band 29 % (5-11); Eosinophils 3 % (0-10); Hypochromia SLIGHT = 6-15 cells (100X) (0-5/hpf); Lymphocytes 4 % (21-51); MDiff Complete? YES; Monocytes 8 % (0-10); Neutrophil 56 % (42-75); Platelet Morphology Comment Appears Adequate; Polychromasia SLIGHT = 2-3 cells (100X) (0-2/hpf)
[2021-09-18] MEDS: Aspirin 325 mg Enteric Coated Tablet PO SCH (10:15)
[2021-09-18] MEDS ORDERED: Levothyroxine Sodium 88 MCG TAB PO SCH (10:15)
[2021-09-18] MEDS: Apixaban 5 MG TAB PO SCH ×2 (10:15→19:57)
[2021-09-18] MEDS ORDERED: Azithromycin 500 MG in Sodium Chloride 0.9% 250 ML 250 ML IVPB SCH (12:00)
[2021-09-18] MEDS: Sodium Chloride 0.9% 1,000 ML IV SCH (15:46)
[2021-09-18] MEDS: Atorvastatin Calcium 40 MG TAB PO SCH (19:57)
[2021-09-18] MEDS ORDERED: Vancomycin HCl 1 GM in Sodium Chloride 0.9% 250 ML 250 ML IVPB SCH (20:00)
[2021-09-18] MEDS ORDERED: Vancomycin HCl 750 MG in Sodium Chloride 0.9% 250 ML 250 ML IVPB SCH (23:00)
[2021-09-19] MEDS: HumaLOG 300 UNITS/3 ML VIAL SC PRN ×4 (05:49→20:22)
[2021-09-19] MEDS: Apixaban 5 MG TAB PO SCH ×2 (07:40→20:03)
[2021-09-19] MEDS: Levothyroxine Sodium 88 MCG TAB PO SCH (07:43)
[2021-09-19] MEDS: Cefepime 1 GM in Sodium Chloride 0.9% 100 ML IVPB SCH (07:44)
[2021-09-19] MEDS: Aspirin 325 mg Enteric Coated Tablet PO SCH (07:44)
[2021-09-19] MEDS: Carvedilol 6.25 MG TAB PO SCH (18:02)
[2021-09-19] MEDS: Atorvastatin Calcium 40 MG TAB PO SCH (20:03)
[2021-09-19 21:49] LABS: Anion Gap 15 mmol/L (10-20); BUN (Urea Nitrogen) 74 mg/dL (9.8-20.1); Calc. Creatinine Clearance 69 mL/min (70-130); Calcium 9.1 mg/dL (7.8-10.44); Carbon Dioxide 22 mmol/L (23-31); Chloride 99 mmol/L (98-107); Glucose 326 mg/dL (80-115); Potassium 3.7 mmol/L (3.5-5.1); Sodium 132 mmol/L (136-145)
[2021-09-19 21:53] LABS: Vancomycin, Random 16.6 ug/mL (See Comment)
[2021-09-19] MEDS: Nystatin Powder 15 GM BOT TOP PRN (22:17)
[2021-09-19] MEDS: Acetaminophen 325 MG TAB PO PRN (22:19)
[2021-09-20] MEDS ORDERED: Vancomycin HCl 750 MG in Sodium Chloride 0.9% 250 ML 250 ML IVPB SCH (01:00)
[2021-09-20 06:02] LABS: Band 11 % (5-11); Eosinophils 1 % (0-10); Hemoglobin 9.2 g/dL (12.0-16.0); Lymphocytes 6 % (21-51); MDiff Complete? YES; Mean Corpuscular Hemoglobin 26.9 pg (27.0-31.0); Mean Corpuscular Volume 81.5 fL (78.0-98.0); Monocytes 8 % (0-10); Neutrophil 74 % (42-75); Platelet Count 139 thou/uL (130-400); Platelet Morphology Comment Appears Adequate; RBC Distribution Width 16.4 % (11.5-14.5); Red Blood Cell (RBC) Count 3.43 mill/uL (4.20-5.40); White Blood Cell (WBC) Count 10.4 thou/uL (4.8-10.8)
[2021-09-20 06:06] LABS: Anion Gap 13 mmol/L (10-20); BUN (Urea Nitrogen) 75 mg/dL (9.8-20.1); Calc. Creatinine Clearance 75 mL/min (70-130); Calcium 8.9 mg/dL (7.8-10.44); Carbon Dioxide 25 mmol/L (23-31); Chloride 98 mmol/L (98-107); Glucose 205 mg/dL (80-115); Potassium 3.8 mmol/L (3.5-5.1); Sodium 132 mmol/L (136-145)
[2021-09-20] MEDS: Levothyroxine Sodium 88 MCG TAB PO SCH (06:06)
[2021-09-20] MEDS: Carvedilol 6.25 MG TAB PO SCH ×2 (09:23→17:09)
[2021-09-20] MEDS: Aspirin 325 mg Enteric Coated Tablet PO SCH (09:23)
[2021-09-20] MEDS: Apixaban 5 MG TAB PO SCH ×2 (09:23→21:43)
[2021-09-20] MEDS ORDERED: Fentanyl 100 MCG/2 ML VIAL ONE (10:08)
[2021-09-20] MEDS ORDERED: PROPOFOL 20 ML ONE (10:08)
[2021-09-20] MEDS ORDERED: PHENYLEPHRINE-NS 100 MCG/ML 10 ML SYRINGE ONE (10:13)
[2021-09-20] MEDS ORDERED: PROPOFOL 200 MG/20 ML VIAL ONE (10:18)
[2021-09-20] MEDS: HumaLOG 300 UNITS/3 ML VIAL SC PRN (17:13)
[2021-09-20] MEDS: Acetaminophen 325 MG TAB PO PRN (21:43)
[2021-09-20] MEDS: Atorvastatin Calcium 40 MG TAB PO SCH (21:43)
[2021-09-21 01:11] LABS: Vancomycin, Random 16.9 ug/mL (See Comment)
[2021-09-21] MEDS: Vancomycin HCl 750 MG in Sodium Chloride 0.9% 250 ML 250 ML IVPB SCH (03:29)
[2021-09-21] MEDS: Levothyroxine Sodium 88 MCG TAB PO SCH (04:27)
[2021-09-21 05:54] LABS: Anion Gap 13 mmol/L (10-20); BUN (Urea Nitrogen) 77 mg/dL (9.8-20.1); Calc. Creatinine Clearance 93 mL/min (70-130); Calcium 8.9 mg/dL (7.8-10.44); Carbon Dioxide 25 mmol/L (23-31); Chloride 99 mmol/L (98-107); Glucose 166 mg/dL (80-115); Potassium 3.9 mmol/L (3.5-5.1); Sodium 133 mmol/L (136-145)
[2021-09-21] MEDS: HumaLOG 300 UNITS/3 ML VIAL SC PRN (06:11)
[2021-09-21 07:01] LABS: Hemoglobin 9.2 g/dL (12.0-16.0); Mean Corpuscular HGB CONC 31.7 g/dL (32.0-36.0); Mean Corpuscular Hemoglobin 25.9 pg (27.0-31.0); Mean Corpuscular Volume 81.8 fL (78.0-98.0); Mean Platelet Volume 10.2 fL (7.4-10.4); Platelet Count 161 thou/uL (130-400); RBC Distribution Width 16.6 % (11.5-14.5); Red Blood Cell (RBC) Count 3.54 mill/uL (4.20-5.40); White Blood Cell (WBC) Count 13.7 thou/uL (4.8-10.8)
[2021-09-21 08:43] LABS: Band 9 % (5-11); Eosinophils 1 % (0-10); Hypochromia SLIGHT = 6-15 cells (100X) (0-5/hpf); Lymphocytes 9 % (21-51); MDiff Complete? YES; Monocytes 6 % (0-10); Neutrophil 73 % (42-75); Ovalocytes SLIGHT = 2-5 cells (100X) (0-1/hpf); Platelet Morphology Comment Appears Adequate; Polychromasia SLIGHT = 2-3 cells (100X) (0-2/hpf); Reactive Lymphocytes 1 % (0-10)
[2021-09-21] MEDS: Carvedilol 6.25 MG TAB PO SCH ×2 (09:16→16:54)
[2021-09-21] MEDS: Apixaban 5 MG TAB PO SCH ×2 (09:16→21:16)
[2021-09-21] MEDS: Aspirin 325 mg Enteric Coated Tablet PO SCH (09:16)
[2021-09-21] MEDS: Atorvastatin Calcium 40 MG TAB PO SCH (21:16)
[2021-09-22] MEDS: Vancomycin HCl 750 MG in Sodium Chloride 0.9% 250 ML 250 ML IVPB SCH (01:36)
[2021-09-22 05:05] LABS: Hemoglobin 9.9 g/dL (12.0-16.0); Mean Corpuscular HGB CONC 31.7 g/dL (32.0-36.0); Mean Corpuscular Volume 81.9 fL (78.0-98.0); Mean Platelet Volume 9.5 fL (7.4-10.4); Platelet Count 225 thou/uL (130-400); RBC Distribution Width 16.7 % (11.5-14.5); White Blood Cell (WBC) Count 15.7 thou/uL (4.8-10.8)
[2021-09-22] MEDS: Levothyroxine Sodium 88 MCG TAB PO SCH (05:05)
[2021-09-22 05:22] LABS: Anion Gap 16 mmol/L (10-20); BUN (Urea Nitrogen) 72 mg/dL (9.8-20.1); Calc. Creatinine Clearance 96 mL/min (70-130); Calcium 9.3 mg/dL (7.8-10.44); Carbon Dioxide 22 mmol/L (23-31); Chloride 101 mmol/L (98-107); Glucose 170 mg/dL (80-115); Potassium 4.1 mmol/L (3.5-5.1); Sodium 135 mmol/L (136-145)
[2021-09-22 05:52] LABS: Band 12 % (5-11); Lymphocytes 4 % (21-51); MDiff Complete? YES; Monocytes 5 % (0-10); Neutrophil 79 % (42-75)
[2021-09-22] MEDS: Aspirin 325 mg Enteric Coated Tablet PO SCH (09:57)
[2021-09-22] MEDS: Apixaban 5 MG TAB PO SCH ×2 (09:57→21:42)
[2021-09-22] MEDS: Carvedilol 6.25 MG TAB PO SCH ×2 (09:57→17:43)
[2021-09-22] MEDS: HumaLOG 300 UNITS/3 ML VIAL SC PRN ×2 (10:43→17:11)
[2021-09-22] MEDS: Atorvastatin Calcium 40 MG TAB PO SCH (21:42)
[2021-09-22] MEDS: Polyethylene Glycol 3350 17 GM Packet PO SCH (21:43)
[2021-09-22] MEDS: Saccharomyces boulardii 250 MG CAP PO SCH (21:43)
[2021-09-22] MEDS: Nystatin Powder 15 GM BOT TOP PRN (21:58)
[2021-09-23 01:46] LABS: Vancomycin, Trough 17.6 ug/mL
[2021-09-23] MEDS: Vancomycin HCl 750 MG in Sodium Chloride 0.9% 250 ML 250 ML IVPB SCH (02:15)
[2021-09-23 05:18] LABS: Anion Gap 15 mmol/L (10-20); BUN (Urea Nitrogen) 72 mg/dL (9.8-20.1); Calc. Creatinine Clearance 101 mL/min (70-130); Calcium 9.3 mg/dL (7.8-10.44); Carbon Dioxide 20 mmol/L (23-31); Chloride 103 mmol/L (98-107); Glucose 178 mg/dL (80-115); Magnesium 2.2 mg/dL (1.6-2.6); Phosphorus 2.6 mg/dL (2.3-4.7); Potassium 4.3 mmol/L (3.5-5.1); Sodium 134 mmol/L (136-145)
[2021-09-23] MEDS: Levothyroxine Sodium 88 MCG TAB PO SCH (05:49)
[2021-09-23 06:42] LABS: Band 13 % (5-11); Hemoglobin 9.5 g/dL (12.0-16.0); Lymphocytes 8 % (21-51); MDiff Complete? YES; Mean Corpuscular HGB CONC 30.3 g/dL (32.0-36.0); Mean Corpuscular Hemoglobin 25.9 pg (27.0-31.0); Mean Corpuscular Volume 85.6 fL (78.0-98.0); Mean Platelet Volume 9.8 fL (7.4-10.4); Monocytes 2 % (0-10); Neutrophil 77 % (42-75); Platelet Count 227 thou/uL (130-400); RBC Distribution Width 17.2 % (11.5-14.5); Red Blood Cell (RBC) Count 3.64 mill/uL (4.20-5.40); White Blood Cell (WBC) Count 13.9 thou/uL (4.8-10.8)
[2021-09-23] MEDS: Aspirin 325 mg Enteric Coated Tablet PO SCH ×2 (10:09→12:40)
[2021-09-23] MEDS: Apixaban 5 MG TAB PO SCH ×3 (10:09→21:55)
[2021-09-23] MEDS: Carvedilol 6.25 MG TAB PO SCH ×2 (10:09→18:24)
[2021-09-23] MEDS: HumaLOG 300 UNITS/3 ML VIAL SC PRN ×3 (12:43→22:12)
[2021-09-23] MEDS ORDERED: Nicotine 14 MG PATCH TD PRN (16:45)
[2021-09-23 17:11] LABS: Actual Bicarbonate (HCO3a) 26.3 mEq/L (22-28); Base Excess (BEa) 2.5 mEq/L (-2.0 to +3.0); CO2 Tension 37.5 mmHg (35.0-45.0); Calcium, Ionized (arterial) 1.26 mmol/L (1.12-1.30); Carboxyhemoglobin (COHb) 2.2 gm% (0.0-3.0); Hemoglobin (Hb) 9.6 g/dL (12.0-16.0); O2 Tension (PaO2), arterial 70.7 mmHg (> 80.0); Potassium - ABG Lab 3.88 mmol/L (3.70-5.30); pH, Arterial 7.46 (7.35-7.45)
[2021-09-23 17:14] LABS: ALV-art Gradient 32.155 mmHg (0-20); Puncture Site RRA
[2021-09-23] MEDS: D5W-AA 4.25% with LYTES 1,000 ML IV SCH (19:29)
[2021-09-23] MEDS: Atorvastatin Calcium 40 MG TAB PO SCH (21:55)
[2021-09-23] MEDS: Saccharomyces boulardii 250 MG CAP PO SCH (21:55)
[2021-09-23] MEDS: Polyethylene Glycol 3350 17 GM Packet PO SCH (21:57)
[2021-09-24] MEDS: Vancomycin HCl 750 MG in Sodium Chloride 0.9% 250 ML 250 ML IVPB SCH (02:20)
[2021-09-24 05:31] LABS: #Eosinphils 0.2 thou/uL (0.0-0.7); #Lymphocytes 1.4 thou/uL (1.20-3.40); #Monocytes 1.3 thou/uL (0.11-0.59); #Neutrophils 15.4 thou/uL (1.40-6.50); %Basophils 0.1 % (0.0-1.0); %Eosinophils 1.3 % (0.0-10.0); %Lymphocytes 7.5 % (21.0-51.0); %Monocytes 6.8 % (0.0-10.0); %Neutrophils 84.2 % (42.0-75.0); Mean Corpuscular HGB CONC 31.1 g/dL (32.0-36.0); Mean Corpuscular Hemoglobin 25.6 pg (27.0-31.0); Mean Corpuscular Volume 82.1 fL (78.0-98.0); Platelet Count 281 thou/uL (130-400); Red Blood Cell (RBC) Count 3.52 mill/uL (4.20-5.40); White Blood Cell (WBC) Count 18.3 thou/uL (4.8-10.8)
[2021-09-24 05:56] LABS: ALT (SGPT) 21 U/L (8-55); AST (SGOT) 21 U/L (5-34); Albumin 2.3 g/dL (3.4-4.8); Alkaline Phosphatase 96 U/L (40-110); Anion Gap 14 mmol/L (10-20); BUN (Urea Nitrogen) 73 mg/dL (9.8-20.1); Bilirubin, Total 0.9 mg/dL (0.2-1.2); Calc. Creatinine Clearance 93 mL/min (70-130); Calcium 9.2 mg/dL (7.8-10.44); Carbon Dioxide 24 mmol/L (23-31); Chloride 102 mmol/L (98-107); Globulin 4.4 g/dL (2.4-3.5); Glucose 274 mg/dL (80-115); Potassium 3.8 mmol/L (3.5-5.1); Protein, Total 6.7 g/dL (5.8-8.1); Sodium 136 mmol/L (136-145)
[2021-09-24] MEDS: HumaLOG 300 UNITS/3 ML VIAL SC PRN ×4 (05:59→21:11)
[2021-09-24] MEDS: Levothyroxine Sodium 88 MCG TAB PO SCH (06:02)
[2021-09-24] MEDS: Carvedilol 6.25 MG TAB PO SCH ×2 (09:42→16:53)
[2021-09-24] MEDS: Aspirin 325 mg Enteric Coated Tablet PO SCH (09:48)
[2021-09-24] MEDS ORDERED: Pantoprazole 40 MG VIAL IVP SCH (10:00)
[2021-09-24] MEDS ORDERED: Lantus 1000 UNITS/10 ML VIAL SC SCH (11:30)
[2021-09-24] MEDS: D5W-AA 4.25% with LYTES 1,000 ML IV SCH (15:30)
[2021-09-24] MEDS: Atorvastatin Calcium 40 MG TAB PO SCH (20:53)
[2021-09-24] MEDS: Pantoprazole 40 MG VIAL IVP SCH (20:53)
[2021-09-24] MEDS: Saccharomyces boulardii 250 MG CAP PO SCH (20:53)
[2021-09-24] MEDS: Polyethylene Glycol 3350 17 GM Packet PO SCH (20:54)
[2021-09-25 01:38] LABS: Vancomycin, Trough 17.6 ug/mL
[2021-09-25] MEDS: Vancomycin HCl 750 MG in Sodium Chloride 0.9% 250 ML 250 ML IVPB SCH (03:01)
[2021-09-25] MEDS: Polyethylene Glycol 3350 17 GM Packet PO SCH ×2 (03:03→21:20)
[2021-09-25] MEDS: Levothyroxine Sodium 88 MCG TAB PO SCH (05:18)
[2021-09-25] MEDS: Nystatin Powder 15 GM BOT TOP PRN (05:22)
[2021-09-25 05:35] LABS: Band 8 % (5-11); Eosinophils 3 % (0-10); Hemoglobin 8.6 g/dL (12.0-16.0); Lymphocytes 7 % (21-51); MDiff Complete? YES; Mean Corpuscular Hemoglobin 25.7 pg (27.0-31.0); Mean Corpuscular Volume 82.9 fL (78.0-98.0); Mean Platelet Volume 9.1 fL (7.4-10.4); Monocytes 2 % (0-10); Neutrophil 80 % (42-75); Platelet Count 279 thou/uL (130-400); RBC Distribution Width 17.5 % (11.5-14.5); Red Blood Cell (RBC) Count 3.34 mill/uL (4.20-5.40); White Blood Cell (WBC) Count 20.5 thou/uL (4.8-10.8)
[2021-09-25 05:36] LABS: ALT (SGPT) 15 U/L (8-55); AST (SGOT) 18 U/L (5-34); Albumin 2.2 g/dL (3.4-4.8); Alkaline Phosphatase 92 U/L (40-110); Anion Gap 13 mmol/L (10-20); BUN (Urea Nitrogen) 80 mg/dL (9.8-20.1); Bilirubin, Total 0.9 mg/dL (0.2-1.2); Calc. Creatinine Clearance 86 mL/min (70-130); Calcium 9.1 mg/dL (7.8-10.44); Carbon Dioxide 25 mmol/L (23-31); Chloride 103 mmol/L (98-107); Globulin 4.6 g/dL (2.4-3.5); Glucose 306 mg/dL (80-115); Protein, Total 6.8 g/dL (5.8-8.1); Sodium 137 mmol/L (136-145)
[2021-09-25] MEDS: HumaLOG 300 UNITS/3 ML VIAL SC PRN ×3 (06:10→21:22)
[2021-09-25] MEDS: Carvedilol 6.25 MG TAB PO SCH ×2 (08:00→17:00)
[2021-09-25] MEDS: Aspirin 325 MG TAB PO SCH (09:00)
[2021-09-25 10:07] VITALS: BMI 47.5
[2021-09-25] MEDS: Lantus 1000 UNITS/10 ML VIAL SC SCH (10:31)
[2021-09-25] MEDS: Pantoprazole 40 MG VIAL IVP SCH ×2 (10:32→21:20)
[2021-09-25 13:06] LABS: SARS-CoV-2 PCR by NAA DETECTED (NotDetected)
[2021-09-25] MEDS: D5W-AA 4.25% with LYTES 1,000 ML IV SCH (15:12)
[2021-09-25] MEDS ORDERED: Midazolam HCl 2 mg/2 ml Vial ONE (15:31)
[2021-09-25] MEDS ORDERED: Fentanyl 100 MCG/2 ML VIAL ONE (15:31)
[2021-09-25] MEDS ORDERED: Ketamine 50 MG/ML (10ML VIAL) ONE (15:32)
[2021-09-25] MEDS ORDERED: EPINEPHrine 1 MG/ML AMP ONE (15:45)
[2021-09-25] MEDS ORDERED: Bupivacaine PF 0.5% 30 ML VIAL ONE ×2 (15:45→16:47)
[2021-09-25] MEDS ORDERED: Lidocaine 2% w/Epinephrine 1:200K 20 ML VIAL ONE ×2 (15:45→16:47)
[2021-09-25] MEDS ORDERED: Sodium Chloride 0.9% 20 ML ONE (15:45)
[2021-09-25] MEDS ORDERED: REMDESIVIR 200 MG in Sodium Chloride 0.9% 250 ML 210 ML IV SCH (19:15)
[2021-09-25] MEDS ORDERED: Pancrelipase DR 12,000 1 CAP FS PRN (19:30)
[2021-09-25] MEDS ORDERED: Sodium Bicarbonate Tab 325 MG TAB PER TUBE PRN (19:30)
[2021-09-25] MEDS: Saccharomyces boulardii 250 MG CAP PO SCH (21:20)
[2021-09-25] MEDS: Atorvastatin Calcium 40 MG TAB PO SCH (21:20)
[2021-09-26] MEDS: Vancomycin HCl 750 MG in Sodium Chloride 0.9% 250 ML 250 ML IVPB SCH (02:25)
[2021-09-26] MEDS: HumaLOG 300 UNITS/3 ML VIAL SC PRN ×4 (06:31→21:09)
[2021-09-26] MEDS: Levothyroxine Sodium 88 MCG TAB PO SCH (06:32)
[2021-09-26] MEDS: Carvedilol 6.25 MG TAB PO SCH ×2 (09:18→16:19)
[2021-09-26] MEDS: Aspirin 325 MG TAB PO SCH (09:19)
[2021-09-26] MEDS: Pantoprazole 40 MG VIAL IVP SCH ×2 (09:20→21:15)
[2021-09-26] MEDS: Lantus 1000 UNITS/10 ML VIAL SC SCH (09:20)
[2021-09-26] MEDS: Albuterol 200 PUFF (6.7GM INHALER) INH SCH ×2 (14:37→14:43)
[2021-09-26] MEDS ORDERED: REMDESIVIR 100 MG in Sodium Chloride 0.9% 250 ML 230 ML IV SCH (21:00)
[2021-09-26] MEDS: Polyethylene Glycol 3350 17 GM Packet PO SCH (21:15)
[2021-09-26] MEDS: Atorvastatin Calcium 40 MG TAB PO SCH (21:15)
[2021-09-26] MEDS: Saccharomyces boulardii 250 MG CAP PO SCH (21:15)
[2021-09-27 01:37] LABS: Vancomycin, Trough 22.8 ug/mL
[2021-09-27] MEDS: Levothyroxine Sodium 88 MCG TAB PO SCH (05:51)
[2021-09-27 06:40] LABS: #Eosinphils 0.2 thou/uL (0.0-0.7); #Lymphocytes 1.2 thou/uL (1.20-3.40); #Monocytes 0.9 thou/uL (0.11-0.59); #Neutrophils 13.4 thou/uL (1.40-6.50); %Basophils 0.1 % (0.0-1.0); %Eosinophils 1.1 % (0.0-10.0); %Lymphocytes 7.5 % (21.0-51.0); %Monocytes 5.8 % (0.0-10.0); %Neutrophils 85.5 % (42.0-75.0); Mean Corpuscular HGB CONC 31.2 g/dL (32.0-36.0); Mean Corpuscular Hemoglobin 25.7 pg (27.0-31.0); Mean Corpuscular Volume 82.3 fL (78.0-98.0); Mean Platelet Volume 9.7 fL (7.4-10.4); Platelet Count 223 thou/uL (130-400); RBC Distribution Width 17.8 % (11.5-14.5); Red Blood Cell (RBC) Count 3.11 mill/uL (4.20-5.40); White Blood Cell (WBC) Count 15.7 thou/uL (4.8-10.8)
[2021-09-27] MEDS: HumaLOG 300 UNITS/3 ML VIAL SC PRN (06:47)
[2021-09-27 06:55] LABS: Anion Gap 14 mmol/L (10-20); BUN (Urea Nitrogen) 125 mg/dL (9.8-20.1); Calc. Creatinine Clearance 57 mL/min (70-130); Calcium 8.6 mg/dL (7.8-10.44); Carbon Dioxide 24 mmol/L (23-31); Chloride 100 mmol/L (98-107); Glucose 254 mg/dL (80-115); Potassium 5.1 mmol/L (3.5-5.1); Sodium 133 mmol/L (136-145)
[2021-09-27] MEDS: Albuterol 200 PUFF (6.7GM INHALER) INH SCH ×3 (07:44→17:57)
[2021-09-27 08:01] LABS: Band 17 % (5-11); Hypochromia MODERATE=16-30 cells (100X) (0-5/hpf); Lymphocytes 6 % (21-51); MDiff Complete? YES; Monocytes 8 % (0-10); Neutrophil 69 % (42-75); Platelet Morphology Comment Appears Adequate; Polychromasia SLIGHT = 2-3 cells (100X) (0-2/hpf)
[2021-09-27] MEDS: Pantoprazole 40 MG VIAL IVP SCH (08:53)
[2021-09-27] MEDS ORDERED: Sodium Chloride 0.9% 1,000 ML IV SCH (09:30)
[2021-09-27] MEDS ORDERED: Gentamicin 80 MG/2 ML VIAL ONE (10:27)
[2021-09-27] MEDS ORDERED: Lidocaine 1% (PF) 30 ML VIAL ONE (10:27)
[2021-09-27] MEDS ORDERED: CEFAZOLIN 1 GM VIAL ONE (10:27)
[2021-09-27] MEDS ORDERED: Fentanyl 100 MCG/2 ML VIAL ONE (10:34)
[2021-09-27] MEDS: Lantus 1000 UNITS/10 ML VIAL SC SCH (10:45)
[2021-09-27] MEDS: Carvedilol 6.25 MG TAB PO SCH ×2 (10:45→17:57)
[2021-09-27] MEDS: Aspirin 325 MG TAB PO SCH (10:45)
[2021-09-27 10:49] VITALS: TEMP 98.8
[2021-09-27] MEDS ORDERED: SUGAMMADEX SODIUM 200 MG/2 ML VIAL ONE (10:56)
[2021-09-27] MEDS ORDERED: PROPOFOL 200 MG/20 ML VIAL ONE (11:07)
[2021-09-27] MEDS ORDERED: PHENYLEPHRINE-NS 100 MCG/ML 10 ML SYRINGE ONE (11:07)
[2021-09-27] MEDS ORDERED: Succinylcholine 200 MG/10 ml SYRINGE FS ONE (11:07)
[2021-09-27] MEDS ORDERED: ePHEDrine 50 MG/ML VIAL ONE (11:07)
[2021-09-27] MEDS ORDERED: Lidocaine 1% PF 5 ML VIAL ONE (11:07)
[2021-09-27] MEDS ORDERED: Phenylephrine 10 MG/ML VIAL ONE (12:17)
[2021-09-27] MEDS ORDERED: VANCOMYCIN 1.25 GM/250 ML BAG 1.25 GM in Premix Bag 1 BAG IVPB SCH (14:00)
[2021-09-27 14:48] VITALS: BP 105/51
== END 2021-09-27 18:30 | disposition expired | DRG 853 ==
LOC: ERS 11:03 → CCU 15:36 → 2NO 09-19 20:47
PROVIDERS: ADMIT Internal Medicine; ATTEND Internal Medicine
PROC: 3E033XZ Introduction of Vasopressor into Peripheral Vein, Percutaneous Approach (ICD-10-PCS; 2021-09-17)
PROC: 02HV33Z Insertion of Infusion Device into Superior Vena Cava, Percutaneous Approach (ICD-10-PCS; 2021-09-17)
PROC: 8E0ZXY6 Isolation (ICD-10-PCS; 2021-09-17)
PROC: 3E0G76Z Introduction of Nutritional Substance into Upper GI, Via Natural or Artificial Opening (ICD-10-PCS; 2021-09-18)
PROC: B24BZZ4 Ultrasonography of Heart with Aorta, Transesophageal (ICD-10-PCS; 2021-09-20)
PROC: XW033E5 Introduction of Remdesivir Anti-infective into Peripheral Vein, Percutaneous Approach, New Technology Group 5 (ICD-10-PCS; 2021-09-25)
PROC: 02HV33Z Insertion of Infusion Device into Superior Vena Cava, Percutaneous Approach (ICD-10-PCS; 2021-09-25)
PROC: B5181ZA Fluoroscopy of Superior Vena Cava using Low Osmolar Contrast, Guidance (ICD-10-PCS; 2021-09-25)
PROC: B548ZZA Ultrasonography of Superior Vena Cava, Guidance (ICD-10-PCS; 2021-09-25)
PROC: 0DH67UZ Insertion of Feeding Device into Stomach, Via Natural or Artificial Opening (ICD-10-PCS; 2021-09-26)
PROC: 02PA0MZ Removal of Cardiac Lead from Heart, Open Approach (ICD-10-PCS; principal; 2021-09-27)
PROC: 0JPT0PZ Removal of Cardiac Rhythm Related Device from Trunk Subcutaneous Tissue and Fascia, Open Approach (ICD-10-PCS; 2021-09-27)
PROC: 3E043XZ Introduction of Vasopressor into Central Vein, Percutaneous Approach (ICD-10-PCS; 2021-09-27)
PROC: 5A2204Z Restoration of Cardiac Rhythm, Single (ICD-10-PCS; 2021-09-27)
PROC: 5A1223Z Performance of Cardiac Pacing, Continuous (ICD-10-PCS; 2021-09-27)
PROC: 02HK3JZ Insertion of Pacemaker Lead into Right Ventricle, Percutaneous Approach (ICD-10-PCS; 2021-09-27)
DX: A41.02 Sepsis due to Methicillin resistant Staphylococcus aureus (principal); R65.21 Severe sepsis with septic shock; U07.1 COVID-19; J12.82 Pneumonia due to coronavirus disease 2019; I21.A1 Myocardial infarction type 2; G92.8 Other toxic encephalopathy; N18.6 End stage renal disease; I33.0 Acute and subacute infective endocarditis; N17.9 Acute kidney failure, unspecified; Z68.42 Body mass index [BMI] 45.0-49.9, adult; I44.2 Atrioventricular block, complete; J96.11 Chronic respiratory failure with hypoxia; I13.2 Hypertensive heart and chronic kidney disease with heart failure and with stage 5 chronic kidney disease, or end stage renal disease; I31.3 Pericardial effusion (noninflammatory); L97.429 Non-pressure chronic ulcer of left heel and midfoot with unspecified severity; L97.419 Non-pressure chronic ulcer of right heel and midfoot with unspecified severity; K92.1 Melena; Z23 Encounter for immunization; E11.22 Type 2 diabetes mellitus with diabetic chronic kidney disease; E66.01 Morbid (severe) obesity due to excess calories; I25.5 Ischemic cardiomyopathy; I48.0 Paroxysmal atrial fibrillation; I50.9 Heart failure, unspecified; E78.5 Hyperlipidemia, unspecified; I25.10 Atherosclerotic heart disease of native coronary artery without angina pectoris; M17.0 Bilateral primary osteoarthritis of knee; G47.33 Obstructive sleep apnea (adult) (pediatric); I49.5 Sick sinus syndrome; D63.1 Anemia in chronic kidney disease; I08.1 Rheumatic disorders of both mitral and tricuspid valves; I70.0 Atherosclerosis of aorta; E03.9 Hypothyroidism, unspecified; M54.50 Low back pain, unspecified; I46.9 Cardiac arrest, cause unspecified; I95.9 Hypotension, unspecified; Z86.73 Personal history of transient ischemic attack (TIA), and cerebral infarction without residual deficits; Z98.890 Other specified postprocedural states; Z79.899 Other long term (current) drug therapy; Z79.82 Long term (current) use of aspirin; Z79.4 Long term (current) use of insulin; Z79.890 Hormone replacement therapy; Z90.49 Acquired absence of other specified parts of digestive tract; Z86.16 Personal history of COVID-19; Z95.0 Presence of cardiac pacemaker; Z79.01 Long term (current) use of anticoagulants; Z79.84 Long term (current) use of oral hypoglycemic drugs
CPT/HCPCS: 33222; 36415; 36416; 36556; 36600; 51701; 70450; 71045; 74018; 80048; 80053; 80202; 81003; 82274; 82553; 82805; 83605; 83735; 84100; 84484; 85025; 87040; 87077; 87086; 87103; 87149; 87186; 90471; 90732; 93005; 93306; 93312; 94640; 94760; 96365; 96366; 96372; 96375; C1751; C1898; C9113; G0009; J0171; J0248; J0456; J0690; J0692; J0696; J1580; J1642; J1650; J1815; J2001; J2250; J2370; J2704; J3010; J3370; J3490; J7050; J7620; S0020; U0002; U0003; U0005